=== PATIENT | female | born 1990 | race Caucasian/White ===

== ENCOUNTER → 2019-09-04 08:10 | Outpatient (BNVA) | payer BC, SELFPAY | PROVIDERS: Referring Provider Obstetrics & Gynecology; Visit Provider Obstetrics & Gynecology | DX: Z32.01 Encounter for pregnancy test, result positive (principal) | CPT/HCPCS: 81025 ==

== ENCOUNTER → 2019-11-01 13:51 | Outpatient (BNVA) | payer BC, SELFPAY | PROVIDERS: Visit Provider Obstetrics & Gynecology | DX: Z34.90 Encounter for supervision of normal pregnancy, unspecified, unspecified trimester (principal); Z34.81 Encounter for supervision of other normal pregnancy, first trimester; Z12.4 Encounter for screening for malignant neoplasm of cervix | CPT/HCPCS: 80053; 80307; 84315; 85027; 86592; 86762; 86803; 86850; 86900; 87077; 87086; 87186; 87340; 87491; 87591; 87806; 88175 ==

== ENCOUNTER → 2019-12-03 13:24 | Outpatient (BNVA) | payer BC, SELFPAY | PROVIDERS: Visit Provider Nurse Practitioner Women's Health | DX: O09.292 Supervision of pregnancy with other poor reproductive or obstetric history, second trimester (principal) | CPT/HCPCS: 80053; 82950; 84315 ==

== ENCOUNTER → 2019-12-26 15:38 | Outpatient (BNVA) | payer BC, SELFPAY | PROVIDERS: Visit Provider Obstetrics & Gynecology | DX: O36.62X0 Maternal care for excessive fetal growth, second trimester, not applicable or unspecified (principal); Z3A.28 28 weeks gestation of pregnancy | CPT/HCPCS: 76805 ==

== ENCOUNTER → 2020-01-29 14:42 | Outpatient (BNVA) | payer MEDICAID, SELFPAY | PROVIDERS: Visit Provider Obstetrics & Gynecology | DX: Z34.90 Encounter for supervision of normal pregnancy, unspecified, unspecified trimester (principal) | CPT/HCPCS: 81000 ==

== ENCOUNTER → 2020-02-21 09:10 | Outpatient (BNVA) | payer MEDICAID, SELFPAY | PROVIDERS: Visit Provider Nurse Practitioner Women's Health | DX: O09.892 Supervision of other high risk pregnancies, second trimester (principal); O99.321 Drug use complicating pregnancy, first trimester; O99.89 Other specified diseases and conditions complicating pregnancy, childbirth and the puerperium; M54.9 Dorsalgia, unspecified; O99.342 Other mental disorders complicating pregnancy, second trimester; O26.899 Other specified pregnancy related conditions, unspecified trimester; Z67.91 Unspecified blood type, Rh negative | CPT/HCPCS: 80307; 81000; 82950; 85027; 86850 ==

== ENCOUNTER → 2020-03-05 10:42 | Outpatient (BNVA) | payer MEDICAID, SELFPAY | PROVIDERS: Visit Provider Obstetrics & Gynecology | DX: O09.892 Supervision of other high risk pregnancies, second trimester (principal) | CPT/HCPCS: 81000 ==

== ENCOUNTER → 2020-03-13 14:55 | Outpatient (BNVA) | payer MEDICAID, SELFPAY | PROVIDERS: Visit Provider Obstetrics & Gynecology | DX: O09.893 Supervision of other high risk pregnancies, third trimester (principal) | CPT/HCPCS: 81000 ==

== ENCOUNTER → 2020-03-20 07:53 | Outpatient (BNVA) | payer MEDICAID, SELFPAY | PROVIDERS: Visit Provider Obstetrics & Gynecology | DX: O09.893 Supervision of other high risk pregnancies, third trimester (principal); O24.414 Gestational diabetes mellitus in pregnancy, insulin controlled | CPT/HCPCS: 81000 ==

== ENCOUNTER 2020-03-27 10:40 | Outpatient (CLI) | payer MEDICAID, SELFPAY ==
[2020-03-27 10:40] VITALS: BMI 27.1
[2020-03-27 11:09] VITALS: RESP 16; TEMP 36.7
[2020-03-27 11:28] VITALS: BP 110/68; PULSE 78; RESP 16; TEMP 36.6
[2020-03-27 11:29] VITALS: BP 110/68; PULSE 78
--- NOTE | 2020-03-31 15:54 | P.PCN_ITS ---
NST (Non-Stress Test) NST : 3 Para: 1,011 Due date: 05/14/20 Gestational age (weeks): 33 Indications: Insulin controlled gestational diabetes in third trimester at 33- 1/7 weeks gestation Test: NST Time: 11:04 Length of test in Minutes: 25 Contractions: None Fetus Fetus 1: Baseline FHR BMP:: 135 Variability: Moderate Accelerations: Present Decelerations: None Reacticity: Reactive Interpretation/Plan Interpretation by: Jaime Ramos Comments: Reactive NST on 03/27/2020. Time Out Is a Time Out required?: No
== END 2020-03-27 11:29 | disposition home or self-care (01) ==
LOC: OPOB 10:46 → OBGYN 10:47
PROVIDERS: Visit Provider Obstetrics & Gynecology
DX: O24.419 Gestational diabetes mellitus in pregnancy, unspecified control (principal); Z3A.00 Weeks of gestation of pregnancy not specified
CPT/HCPCS: 12345; 59025; 81000

== ENCOUNTER 2020-04-02 17:23 | Outpatient (CLI) | payer MEDICAID, SELFPAY ==
[2020-04-02 17:28] VITALS: BP 98/72; PULSE 91
[2020-04-02 17:30] VITALS: BMI 26.9
[2020-04-02 17:35] VITALS: RESP 18; TEMP 36.7
[2020-04-02 17:45] VITALS: BP 108/64; PULSE 83
[2020-04-02 18:00] VITALS: BP 95/54; PULSE 80
--- NOTE | 2020-04-04 20:49 | PM.ACPR ---
NST (Non-Stress Test) NST : 3 Para: 1,011 Due date: 05/14/20 Gestational age (weeks): 34 Indications: Insulin requiring gestational diabetes in third trimester at 34-0/7 weeks gestation Test: NST Time: 17:29 Length of test in Minutes: 37 Contractions: None Fetus Fetus 1: Baseline FHR BMP:: 130 Variability: Moderate Accelerations: Present Decelerations: None Reacticity: Reactive Interpretation/Plan Interpretation by: Jaime Ramos Comments: Reactive NST. Time Out Is a Time Out required?: No
== END 2020-04-02 18:09 | disposition home or self-care (01) ==
LOC: OPOB 17:23 → OBGYN 17:24
PROVIDERS: Visit Provider Obstetrics & Gynecology
DX: O26.899 Other specified pregnancy related conditions, unspecified trimester (principal); Z3A.00 Weeks of gestation of pregnancy not specified
CPT/HCPCS: 12345; 59025; 80053; 84315; 85025; 87077; 87086; 87186

== ENCOUNTER 2020-04-10 14:52 | Outpatient (CLI) | payer MEDICAID, SELFPAY ==
[2020-04-10 15:03] VITALS: BP 0/0
[2020-04-10 15:04] VITALS: BP 96/67; PULSE 83
[2020-04-10 15:06] VITALS: BMI 27.1
[2020-04-10 15:19] VITALS: BP 116/65; PULSE 69
[2020-04-10 15:25] VITALS: RESP 18; TEMP 37.1
[2020-04-10 15:34] VITALS: BP 113/70; PULSE 66
--- NOTE | 2020-04-14 19:27 | PM.ACPR ---
NST (Non-Stress Test) NST : 3 Para: 1,011 Due date: 05/14/20 Gestational age (weeks): 35 (35-1/7) Indications: Insulin controlled gestational diabetes in third trimester Test: NST Time: 15:04 Length of test in Minutes: 34 Contractions: Occasional Fetus Fetus 1: Baseline FHR BMP:: 130 Variability: Moderate Accelerations: Present Decelerations: None Reacticity: Reactive Interpretation/Plan Interpretation by: Jaime Ramos Comments: Reactive NST. Occasional contractions present. Time Out Is a Time Out required?: No
== END 2020-04-10 15:39 | disposition home or self-care (01) ==
LOC: OPOB 14:58 → OBGYN 14:59
PROVIDERS: Visit Provider Obstetrics & Gynecology
DX: O24.419 Gestational diabetes mellitus in pregnancy, unspecified control (principal); Z3A.00 Weeks of gestation of pregnancy not specified
CPT/HCPCS: 12345; 59025; 81000; 99211

== ENCOUNTER 2020-04-20 12:55 | Outpatient (CLI) | payer MEDICAID, SELFPAY ==
[2020-04-20 13:10] VITALS: RESP 18; TEMP 36.9; BMI 28.6
[2020-04-20 13:13] VITALS: BP 111/80; PULSE 83
[2020-04-20 13:27] VITALS: BP 113/69; PULSE 76
--- NOTE | 2020-04-21 17:28 | PM.ACPR ---
NST (Non-Stress Test) NST : 3 Para: 1,011 Due date: 05/14/20 Gestational age (weeks): 36 Indications: Insulin requiring gestational diabetes in third trimester at 36-4/7 weeks gestation Test: NST Time: 13:10 Length of test in Minutes: 27 Contractions: Uterine irritability Fetus Fetus 1: Baseline FHR BMP:: 130 Variability: Moderate Accelerations: Present Decelerations: None Reacticity: Reactive Interpretation/Plan Interpretation by: Jaime Ramos Comments: Reactive NST with uterine irritability. Time Out Is a Time Out required?: No
== END 2020-04-20 13:38 | disposition home or self-care (01) ==
LOC: OPOB 13:11
PROVIDERS: Visit Provider Obstetrics & Gynecology
DX: O24.419 Gestational diabetes mellitus in pregnancy, unspecified control (principal); Z3A.00 Weeks of gestation of pregnancy not specified
CPT/HCPCS: 12345; 59025; 81000; 87081; 99211

== ENCOUNTER 2020-04-23 09:15 | Outpatient (CLI) | payer MEDICAID, SELFPAY ==
[2020-04-23 09:28] VITALS: RESP 16; TEMP 36.6
[2020-04-23 09:30] VITALS: BMI 27.8
--- NOTE | 2020-04-26 09:28 | PM.ACPR ---
NST (Non-Stress Test) NST : 3 Para: 1,011 Due date: 04/23/20 Gestational age (weeks): 37 Indications: Insulin requiring gestational diabetes complicating in third trimester at 37-0/7 weeks gestation Test: NST Time: 09:25 Length of test in Minutes: 24 Contractions: Irregular Fetus Fetus 1: Baseline FHR BMP:: 135 Variability: Moderate Accelerations: Present Decelerations: None Reacticity: Reactive Interpretation/Plan Interpretation by: Jaime Ramos Comments: Reactive NST with irregular contractions. Time Out Is a Time Out required?: No
== END 2020-04-23 09:50 | disposition home or self-care (01) ==
LOC: OPOB 09:24
PROVIDERS: Visit Provider Obstetrics & Gynecology
DX: O24.414 Gestational diabetes mellitus in pregnancy, insulin controlled (principal); Z3A.37 37 weeks gestation of pregnancy
CPT/HCPCS: 12345; 59025; 99211

== ENCOUNTER 2020-04-27 10:50 | Outpatient (CLI) | payer MEDICAID, SELFPAY ==
[2020-04-27 10:57] VITALS: RESP 16; TEMP 36
--- NOTE | 2020-04-27 11:00 | PM.ACPR ---
NST (Non-Stress Test) NST : 3 Para: 1,011 Due date: 05/14/20 Gestational age (weeks): 37 Indications: Insulin requiring gestational diabetes in third trimester at 37-4/7 weeks gestation Test: NST Time: 11:00 Length of test in Minutes: 40 Contractions: Irritability Fetus Fetus 1: Baseline FHR BMP:: 135 Variability: Moderate Accelerations: Present Decelerations: None Reacticity: Reactive Interpretation/Plan Interpretation by: Jaime Ramos Comments: Reactive NST with uterine irritability present Time Out Is a Time Out required?: No
[2020-04-27 11:03] VITALS: BMI 27.6
[2020-04-27 11:04] VITALS: BP 100/69; PULSE 88
== END 2020-04-27 11:40 | disposition home or self-care (01) ==
LOC: OPOB 10:56 → OBGYN 10:56
PROVIDERS: Visit Provider Obstetrics & Gynecology
DX: O26.899 Other specified pregnancy related conditions, unspecified trimester (principal); Z3A.00 Weeks of gestation of pregnancy not specified
CPT/HCPCS: 12345; 59025; 81000

== ENCOUNTER 2020-04-30 14:22 | Outpatient (CLI) | payer MEDICAID, SELFPAY ==
--- NOTE | 2020-04-30 14:40 | PM.ACPR ---
NST (Non-Stress Test) NST : 3 Para: 1,011 Due date: 05/14/20 Gestational age (weeks): 38 Indications: Insulin controlled gestational diabetes in third trimester at 38 weeks gestation Test: NST Time: 14:42 Length of test in Minutes: 32 Contractions: Irregular Fetus Fetus 1: Baseline FHR BMP:: 130 Variability: Moderate Accelerations: Present Decelerations: None Reacticity: Reactive Interpretation/Plan Interpretation by: Jaime Ramos Comments: Reactive NST with irregular contractions Time Out Is a Time Out required?: No
[2020-04-30 15:03] VITALS: BP 112/74; PULSE 88
[2020-04-30 15:18] VITALS: BMI 27.6
== END 2020-04-30 15:15 | disposition home or self-care (01) ==
LOC: OPOB 14:31 → OBGYN 14:33
PROVIDERS: Visit Provider Obstetrics & Gynecology
DX: O24.419 Gestational diabetes mellitus in pregnancy, unspecified control (principal); Z3A.00 Weeks of gestation of pregnancy not specified
CPT/HCPCS: 12345; 59025

== ENCOUNTER 2020-05-03 02:56 | Inpatient (IN) | payer MEDICAID, SELFPAY ==
[2020-05-03] VITALS (23 sets, daily range): BP systolic 0–144; BP diastolic 0–86; PULSE 52–85; RESP 16–17; TEMP 36.4–36.7; O2SAT 96–100
[2020-05-03] MEDS: lactated ringers 1,000 ML 999 ML IV (03:32)
[2020-05-03 03:33] LABS: Basophils % 0.3 %; Eosinophils # 0.1 10^3/uL (0.0-0.8); Eosinophils % 1.2 %; Hematocrit 36.1 % (37.0-47.0); Lymphocytes # 1.5 10^3/uL (0.8-4.8); Lymphocytes % 20.7 %; Mean Corpuscular HGB Conc 33.2 g/dL (30.0-36.0); Mean Corpuscular Hemoglobin 32.4 pg (28.0-34.0); Mean Corpuscular Volume 97.6 fL (81-99); Mean Platelet Volume 12.6 fL (7.4-10.4); Monocytes # 0.5 10^3/uL (0.2-0.9); Monocytes % 6.5 %; Neutrophils % 71.2 %; Nucleated Red Blood Cells % 0 %; Platelet Count 131 10^3/cmm (130-400); Red Cell Distribution Width 12.9 % (12.1-15.1); White Blood Count 7.4 10^3/uL (4.0-10.0)
[2020-05-03 03:44] LABS: Amphetamines Screen Urine Negative (Negative); Barbiturates Screen Urine Negative (Negative); Benzodiazepines Screen Urine Negative (Negative); Cocaine Screen Urine Negative (Negative); Opiate Screen Urine Negative (Negative); PCP Screen Urine Negative (Negative); THC Screen Urine Negative (Negative)
--- NOTE | 2020-05-03 04:05 | P.PCNOB_ITS ---
Delivery Note: Date of delivery: May 03, 2020 Pre-delivery diagnoses: term . Gestational diabetes. Post-delivery diagnoses: same as above Op report anesthesia: None Delivering Physician: Delroy Cannon M.D. Estimated blood loss (mL): 300 Findings: term male infant, Apgars 8/9 Pre-Delivery Course: The patient is a 30 year old, 3, Para 1-0-1-1 with a LMP of 08/08/2019 and an EDC of 05/14/2020 based on LMP and consistent with 20 week ultrasound, which places her at 38 3/7 weeks gestation who [place] [facility]. She has been experiencing painful uterine contractions for the past 3 hours. The contractions are occurring at 3 minute intervals with approximately 45 second duration. She continues to feel movement between the contractions. She denies vaginal bleeding or rupture of membranes. CC: Onset of labor at term. HPI: Received appropriate care. Daily vitamins since start a care. labs have all been normal, including negative for HIV. She was found to positive for Group B Strep from screening at 36 weeks. She has gained approximately 9 lbs throughout the . She denies a history of HTN during . Glucose tolerance screening for gestational diabetes was positive and was diagnosed with gestational diabetes. Delivery: The patient was noted to be complete and pushing, so was placed in the dorsal lithotomy position, prepped and draped in the usual sterile fashion for a vaginal delivery. Pt. Noted to have epidural anesthesia. At [] the patient delivered a viable term male weighing 3035 g with scores of 8 and 9 at one and five minutes, respectively. The vertex was delivered spontaneously over intact perineum. The patient was asked to push and the head delivered spontaneously in the ERIC position, over an intact perineum. A nuchal cord was checked and none noted. The anterior shoulder delivered easily and the posterior shoulder followed. The remainder of the infant was easily delivered and the oropharynx and nasopharynx was bulb suctioned. The infant was noted to have spontaneous cry and spontaneous movement of all four extremities. The cord was clamped x 2 and cut and noted to have 2 arteries and one vein. The was passed to the mother's abdomen where nursing personnel were in attendance. Cord blood sample was then obtained. The placenta delivered intact spontaneously and the uterus was explored. 20 units of Pitocin was placed in the IV bag to firm the uterus. Examination of the cervix and vaginal vault did not reveal any lacerations. A vaginal pack was then placed. Examination of the perineum showed no lacerations. The vaginal pack was then removed. The patient tolerated this procedure well, and recovered in L&D with her at the OB ma. All sponge and needle counts were correct. Post-Delivery Status: unstable A&P Assessment and plan (1) Tobacco use during : Status: Acute Qualifiers: Trimester: first trimester Qualified Code(s): O99.331 - Smoking (tobacco) complicating , first trimester (2) Mental disorder affecting : Status: Acute Qualifiers: Trimester: third trimester Qualified Code(s): O99.343 - Other mental disorders complicating , third trimester (3) High risk due to maternal drug abuse: Status: Acute (4) Diabetes in : Status: Acute Qualifiers: Diabetes in type: gestational Gestational diabetes mellitus control: insulin-controlled Trimester: third trimester Qualified Code(s): O24.414 - Gestational diabetes mellitus in , insulin controlled Coding Level of Care Code Acute Animal Attendants And Trainers for Ch Fwd Diagnoses High risk due to maternal drug abuse O99.320; F19.10 Diabetes in O24.414 Diabetes in type: gestational Gestational diabetes mellitus control: insulin-controlled Trimester: third trimester Tobacco use during O99.331 Trimester: first trimester Mental disorder affecting O99.343 Trimester: third trimester
[2020-05-03] MEDS: dextrose 5%-lactated ringers 1,000 ML 125 ML IV (04:12)
[2020-05-03] MEDS: acetaminophen 325 mg Tablet 650 MG PO (06:36)
[2020-05-03] MEDS: benzocaine-menthol 78 gm Canister 1 SPRAY TOPICAL (06:37)
[2020-05-03] MEDS: lanolin oint 7 gm 1 APPLIC TOPICAL (06:37)
--- NOTE | 2020-05-03 07:02 | PC.NURSE ---
Admission of marijuana use during and mother reports relinquishing custody of 11 year old daughter to mother's parents when child was 2 or 3 years old.
[2020-05-03] MEDS: prenatal vitamin Capsule 1 CAP PO (09:38)
[2020-05-03] MEDS: docusate sodium 100 mg Capsule PO ×2 (09:38→18:14)
[2020-05-03] MEDS: ibuprofen 800 mg tablet PO ×3 (09:38→21:47)
--- NOTE | 2020-05-03 09:50 | DCPLANNER ---
Phoned the floor and asked Pt. Care Nurse; Shameka if pt will have d/c need. She denies this, states that [facility] will need to see her but nothing from us.
--- NOTE | 2020-05-03 11:54 | PM.PN ---
Subjective Subjective: Interval history: 30 year old, 3, Para 1-0-1-1 with a LMP of 08/08/2019 and an EDC of 05/14/2020 based on LMP and consistent with 20 week ultrasound. Status post spontaneous vaginal delivery. refers feeling fine Vitals/I&O/Wt Last Vital Signs Temp 97.9 F 05/03/20 10:00 Pulse 68 05/03/20 10:00 Resp 17 05/03/20 10:00 BP 119/75 05/03/20 10:00 Pulse Ox 99 05/03/20 10:00 05/02/20 05/03/20 05/03/20 22:59 06:59 14:59 Output Total 100 / 100 Balance -100 / -100 Weight last 48 hrs Weight 81.647 kg Weight 180 g Physical Exam Narrative: EXAM NARRATIVE: GA; alert and oriented x 3 HEENT: normal Breasts: engorged Nipples - skin intact Lungs; clear to auscultation Heart: regular rhythm, no murmurs. Abd: Appropriately tender. BS+. Uterine fundus below umbilicus. No Fundal Tenderness. Perineum: normal lochia. Extremities: no edema, no cyanosis, no tenderness. Data : 05/03/20 03:00 A&P Assessment and plan (1) Term delivered: She was status post spontaneous vaginal delivery without complications. he refers she had signed a consent for tubal ligation/permanent sterilization. However because she have not been COVID tested, the hospital did not authorize the elective procedure at this time because of the policy of no elective procedures without being tested for COVID prior to the procedure. She is afebrile hemodynamically stable. Tolerating diet well. Ambulating without difficulty. Plan: Anticipate discharging home tomorrow. Status: Acute Attestations Medical Necessity Statement*: my professional opinion per admitting diagnosis Coding Level of Care Code Acute Air Pollution Inspector for Chg Fwd Diagnoses Term delivered O80
[2020-05-03 16:21] LABS: Hematocrit 34.2 % (37.0-47.0); Hemoglobin 11.2 g/dL (11.5-15.3); Mean Corpuscular HGB Conc 32.7 g/dL (30.0-36.0); Mean Corpuscular Hemoglobin 32.1 pg (28.0-34.0); Mean Platelet Volume 12.4 fL (7.4-10.4); Platelet Count 144 10^3/cmm (130-400); Red Blood Count 3.49 10^6/uL (4.1-5.3)
[2020-05-04] MEDS: prenatal vitamin Capsule 1 CAP PO (08:05)
[2020-05-04] MEDS: docusate sodium 100 mg Capsule PO (08:05)
[2020-05-04] MEDS: ibuprofen 800 mg tablet PO ×2 (08:05→14:03)
[2020-05-04 09:09] VITALS: BP 107/66; PULSE 69; RESP 15; TEMP 36.8
--- NOTE | 2020-05-04 12:45 | P.DS_ITS ---
Discharge Providers BEAN ROASTER Date of Admission: 05/03/20 02:56 Date of Discharge: 05/04/20 Attending Provider at Admission: Delroy Cannon MD Attending Provider at Discharge: Delroy Cannon MD Diagnoses at Discharge Discharge Diagnosis (1) High risk due to maternal drug abuse: Status: Acute (2) Diabetes in : Status: Acute Qualifiers: Diabetes in type: gestational Gestational diabetes mellitus control: insulin-controlled Trimester: third trimester Qualified Code(s): O24.414 - Gestational diabetes mellitus in , insulin controlled (3) Tobacco use during : Status: Acute Qualifiers: Trimester: first trimester Qualified Code(s): O99.331 - Smoking (tobacco) complicating , first trimester (4) Mental disorder affecting : Status: Acute Qualifiers: Trimester: third trimester Qualified Code(s): O99.343 - Other mental disorders complicating , third trimester Reason for Visit Reason for Visit: Contractions Hospital Course Hospital Course The patient is a 30 year old, 3, Para 1-0-1-1 with a LMP of 08/08/2019 and an EDC of 05/14/2020 based on LMP and consistent with 20 week ultrasound, which places her at 38 3/7 weeks gestation who has [place] receiving [place] [facility] [place] [facility]. She has been experiencing painful uterine contractions for the past 3 hours. The contractions are occurring at 3 minute intervals with approximately 45 second duration. She continues to feel movement between the contractions. She denies vaginal bleeding or rupture of membranes. CC: Onset of labor at term. HPI: Received appropriate care. Daily vitamins since start a care. labs have all been normal, including negative for HIV. She was found to positive for Group B Strep from screening at 36 weeks. She has gained approximately 9 lbs throughout the . She denies a history of HTN during . Glucose tolerance screening for gestational diabetes was positive and was diagnosed with gestational diabetes. She had a rapid progression of labor to have a spontaneous vaginal delivery without complications. she delivered term male infant with a weight at 3035g and APGARS 8/9. recovery has been uneventful. She is afebrile hemodynamically stable. Tolerating diet well. Ambulating without difficulty. Will decide method of contraception to use at the 6 week visit. Information Peripartum Data: Delivery Method: Vaginal Physical Exam Narrative: EXAM NARRATIVE: GA; alert and oriented x 3 HEENT: normal Breasts: engorged Nipples - skin intact Lungs; clear to auscultation Heart: regular rhythm, no murmurs. Abd: Appropriately tender. BS+. Uterine fundus below umbilicus. No Fundal Tenderness. Perineum: normal lochia. Extremities: no edema, no cyanosis, no tenderness. Discharge Data Data Completed and Pending: Labs from last 24 hours 05/03/20 05/03/20 13:45 13:45 WBC 8.0 RBC 3.49 L Hgb 11.2 L Hct 34.2 L MCV 98.0 MCH 32.1 MCHC 32.7 RDW 13.0 Plt Count 144 MPV 12.4 H Blood Type O Positive Rho(D) Type Positive Antibody Screen Negative Vitals: Last Vital Signs Temp 98.3 F 05/04/20 09:09 Pulse 69 05/04/20 09:09 Resp 15 05/04/20 09:09 BP 107/66 05/04/20 09:09 Pulse Ox 98 05/03/20 21:55 Discharge Plan Discharge Patient Disposition: Home Condition: Stable Prescriptions: New acetaminophen 325 mg capsule 325 mg PO Q4H PRN (Reason: fever or pain) Qty: 60 RF: 0 ibuprofen 800 mg tablet 800 mg PO TID PRN (Reason: pain) Qty: 60 RF: 0 Continued DHA 200 mg capsule 200 mg PO DAILY RF: 0 Intrinsi W57-Rceolm 500-20-800 mcg-mg-mcg tablet See Rx Instructions PO .COMPLEX RF: 0 Levemir U-100 Insulin 100 unit/mL solution 10 unit SUBCUT DAILY Qty: 10 RF: 3 (DME) insulin syringes (disposable) 1 mL syringe See Rx Instructions .ROUTE .MEDSUPPLY Qty: 500 RF: 3 Latuda 20 mg tablet 20 mg PO DAILY Qty: 30 RF: 4 ferrous sulfate 325 mg (65 mg iron) tablet 325 mg PO BID Qty: 60 RF: 2 (DME) blood-glucose meter [Blood Glucose Monitoring] Kit See Rx Instructions .ROUTE .MEDSUPPLY Qty: 1 RF: 6 Discharge Orders: Discharge Order (Routine); Ordered 05/04/20 Ordered By: Delroy Cannon Referrals: Delroy Cannon MD [Physician] - 2 weeks Discharge Diet: As Directed Discharge Activity: Increase activity as tolerated Patient Instructions: How to Stop Smoking (DC), Cigarette Smoking and Your Health (GEN), Vaginal Delivery (DC), Vaginal Delivery (GEN), Secondhand Smoke Exposure in Children (GEN) Activity Restrictions/Additional Instructions: 1. Please call [facility] on next working day to make your post-operative appointment in 2 weeks. 2. Please stay home until you come back to the clinic on first post-operative check up. 3. Please follow instructions on your medications CAREFULLY. 4. If you have abdominal incision, do not cover it unless dressing is necessary because of drainage. OK to shower, but avoid bath. Leave steri-strips until they fall off. If they are still on one week after surgery, you may remove them. 5. If you had vaginal surgery, your doctor may instuct you to take SITZ bath. 6. Yellow, blood tinged odorous vaginal discharge is usually normal after hysterectomy or vaginal surgeries. 7. No sexual intercourse, tampons, or douches until you are completely released from the post-operative care. 8. Avoid constipation by eating right and maybe using some Metamucil or Milk of Magnesia. 9. All presciption refills are given during the working hours. Please do no wait till it runs out. Call the clinic at [phone] before your medication runs out. The clinic will get in touch with your doctor to prescribe medications if necessary. 10. Please remain within 40 mile radius from our hospital because emergencies do happen now and then during the post-operative period. 11. If you have stairs at home, take one step at a time slowly and minimize the number of trips. It helps to stay in one floor for the next few days. No lifting except what you can lift by one hand until you are released from the post-operative care. 12. Driving is discouraged until you are well healed. It may be 3-4 weeks before you feel strong enough to drive. You should be able to turn and look throught the rear window without pain and you should be able to push the brake pedal very hard without pain before you drive. No fast rules, but SAFETY should be your primary concern. DO NOT drive if you are on sedating medications such as narcotics. 13. Call the clinic (during working hours) to make urgent appointment or go to the Emergency room, if any of the following occurs: i. Vaginal bleeding becomes heavy, more than a period. ii. Incision becomes red and sore, or drains pus. iii. Your temperature is over 100.4 or you have chill. iv. IV site becomes red and swollen (a little ``knot?? is usually OK) v. Persistent nausea and vomiting vi. Persistent constipation or diarrhea vii. Rash or allergic reaction to medications. Discharge Attestations BEAN ROASTER Time Spent in Discharge Care*: greater than 30 min Specific Discharge Activities: Specific discharge activities: educating patient Time Spent in Smoking Cessation: Time spent discussing smoking cessation with patient: more than 10 minutes Coding Level of Care Code Acute Hadoop Administrator for [facility] Fwd Diagnoses High risk due to maternal drug abuse O99.320; F19.10 Diabetes in O24.414 Diabetes in type: gestational Gestational diabetes mellitus control: insulin-controlled Trimester: third trimester Tobacco use during O99.331 Trimester: first trimester Mental disorder affecting O99.343 Trimester: third trimester
[2020-05-04 13:40] VITALS: BP 134/77; PULSE 69; RESP 15; TEMP 36.9
[2020-05-04 13:51] VITALS: BP 134/77; PULSE 69; RESP 15; TEMP 36.9
--- NOTE | 2020-05-04 17:57 | PC.RESP ---
Smoking Cessation information sent to patient.
== END 2020-05-04 14:15 | disposition home or self-care (01) | DRG 807 ==
LOC: OPOB 04:06 → OBGYN 04:06
PROVIDERS: Admitting Provider Obstetrics & Gynecology; Visit Provider Obstetrics & Gynecology
DX: O24.414 Gestational diabetes mellitus in pregnancy, insulin controlled (principal); Z37.0 Single live birth; O99.343 Other mental disorders complicating pregnancy, third trimester; O99.334 Smoking (tobacco) complicating childbirth; F17.210 Nicotine dependence, cigarettes, uncomplicated; Z3A.38 38 weeks gestation of pregnancy; O99.824 Streptococcus B carrier state complicating childbirth
CPT/HCPCS: 12345; 36415; 59409; 80306; 85025; 85027; 86850; 86900; 90686; 99211

== ENCOUNTER 2020-05-10 16:06 | Inpatient (IN) | payer MEDICAID, SELFPAY ==
[2020-05-10] VITALS (8 sets, daily range): BP systolic 90–111; BP diastolic 59–70; PULSE 129–136; RESP 17–36; TEMP 36.4–36.7; O2SAT 97–100; BMI 26.6
--- NOTE | 2020-05-10 16:20 | ECG_ITS ---
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 Measurements Intervals [place] Rate: 123 P: 28 SD: 104 QRS: 12 QRSD: 81 T: 54 QT: 299 QTc: 429 Interpretive Statements SINUS TACHYCARDIA WITH SHORT SD INTERVAL ABNORMAL RHYTHM ECG No previous ECG available for comparison Electronically Signed On 05-10-2020 21:15:39 TRUST EVALUATION SUPERVISOR by Mohamud Jean M.D. [id number]
--- NOTE | 2020-05-10 16:30 | USR_ITS ---
PROCEDURE INFORMATION: Exam: US Nonobstetric Pelvis; Complete Exam date and time: 05/10/2020 4:46 PM Age: 30 years old Clinical indication: Abdominal pain and pelvic pain; Right lower quadrant; Additional info: Post bleeding, pain TECHNIQUE: Imaging protocol: Transabdominal pelvic nonobstetric ultrasound. Complete exam. Real time ultrasound with image documentation. COMPARISON: US OB [facility] 04/30/2020 1:54 PM FINDINGS: Uterus/cervix: Uterus is enlarged measuring 16.4 x 7.7 x 8.6 cm. This is not unusual for patient 1 week . Endometrium measures 8 mm in thickness and is unremarkable. Right adnexa: Right ovary is not visualized on this examination. Left adnexa: Left ovary is not visualized on this examination. Bowel: Patient directed scanning over the right lower quadrant where the patient describes her pain did not reveal any specific abnormality. Incidental note is made of multiple gallstones in the gallbladder with thickened gallbladder wall. Intraperitoneal space: No free fluid is identified. Urinary bladder: Normal. US/US pelvic complete* [id number] IMPRESSION: 1. Cholelithiasis and possible cholecystitis. 2. Unremarkable pelvis. 3. No specific finding is seen in the right lower quadrant.
[2020-05-10] MEDS: sodium chloride 0.9% 1,000 ML 999 ML IV ×2 (16:40→19:51)
[2020-05-10] MEDS: ondansetron 2 mg/ML SDV 2 mL 4 MG IVP (16:41)
[2020-05-10] MEDS: morphine 4 mg/mL SDV 1 mL IVP ×2 (16:44→19:51)
--- NOTE | 2020-05-10 16:51 | W.ED.FEMALGU ---
HPI - Female Genitourinary General: Chief complaint: Vaginal Bleeding Stated complaint: pain post vaginal deliver, n/v Time Seen by Provider: 05/10/20 16:18 History of Present Illness: HPI Narrative: This patient is a 30-year-old female who presents with abdominal pain. She is with a normal spontaneous vaginal delivery 7 days ago. She had been having vaginal bleeding of about 4-5 pads per day until yesterday. Today she only had about 2 pads. Last night she started developing abdominal pain and bloating. Today she is extremely uncomfortable and has marked swelling of her abdomen. She denies vomiting. She had been having normal bowel movements until last night. She has not had 1 at all today. She has no problems urinating although she notes a little bit of burning due to tears from delivery. No fever. She is lightheaded and feels very weak. MD elicited complaint: vaginal bleeding, pelvic pain and other (Abdominal pain and swelling) Pertinent past history: other (7 days , breast-feeding) Onset (ago): day(s) (1) Location of symptoms: pelvis Severity: severe Female Urogenital Radiation: Non-Radiating Quality of pain: sharp Consistency: constant Vaginal bleeding: moderate Urinary symptoms: Dysuria Exacerbating factors: none Relieving factors: none Associated symptoms: Reports abdominal pain; Deny headache(s) or nausea Review of Systems General: Reports: 10 or more systems reviewed and unremarkable except in HPI and below Const: Reports: fatigue; Denies: fever(s), chills or malaise Eyes: Denies: change in vision ENMT: Denies: odynophagia Card: Denies: chest pain or swelling of feet/ankles Resp: Reports: dyspnea; Denies: productive cough or non-productive cough GI: Reports: abdominal pain and bloating; Denies: nausea or vomiting : Denies: flank pain or difficulty voiding Musc: Denies: neck pain or back pain Skin/Breast: Denies: rash Neuro: Denies: headache(s), numbness in extremities or weakness in extremities Georges/Lymph: Denies: easy bruising or easy bleeding PFSH ED PFSH: Medical History Bipolar disorder Drug use complicating Gestational diabetes History of drug abuse Term delivered Tobacco use Surgical History H/O LEEP (~2013) states she had moderate dysplasia No pertinent past surgical history Family History Grandmother Breast cancer, Onset Age: 60 MGGM Uterine cancer, Onset Age: 38 MGM Unknown No pertinent family history hypertension, high cholesterol, diabetes, thyroid or stroke Social History (Updated 05/11/20 @ 08:38 by Jaime Ramos MD) Smoking and tobacco status: current every day smoker cigarettes Packs smoked per day: 0.25 [ Other cigarette details: was smoking up to 1/2-1ppd ] and e-cigarettes E-Cigarette Details: vaporizer device E-cig/vape details: every other day Alcohol intake: never Other details last substance use: Uses marijuana to treat her stress Physical Exam Const: COMMON NORMALS: patient oriented x3, no limitations and alert GENERAL APPEARANCE: cooperative and in distress HENMT: HEAD & SCALP: normal to inspection FACE & SINUS: normal facial exam Eye: GENERAL EYE: appearance normal, both eyes and all related structures Neck/C-Spine: COMMON NORMALS: supple, no meningeal signs and no JVD Chest: COMMONS NORMALS: normal inspection of the chest Resp: COMMON NORMALS: normal respiratory effort, No use of accessory muscles and clear to auscultation bilaterally AUSCULTATION: clear to auscultation bilaterally Cardio: COMMON NORMALS: no JVD, regular rate, regular rhythm and No murmurs present (Cardio) RATE: regular rate RHYTHM: regular rhythm GI: COMMON NORMALS: Normal to inspection, nondistended, normoactive bowel sounds present and non-tender INSPECTION: Yes normal to inspection and Yes striae PALPATION: Yes Tenderness to palpation present (GI) (Diffuse) Back/Pelvis: COMMON NORMALS: thoracic and lumbar spine normal to inspection Extremity: COMMON NORMALS: normal to inspection Neuro: COMMON NORMALS: patient oriented x3, moves all extremities, no focal motor deficits and no sensory deficits noted SENSORIUM/ORIENTATION: Yes alert MENINGEAL SIGNS: Yes no meningeal signs Psych: COMMON NORMALS: mental status grossly normal, cooperative and normal affect Skin: COMMON NORMALS: no rashes or lesions noted and turgor normal GENERAL SKIN EXAM: no rashes or lesions noted and turgor normal Course ED course: Hemoglobin is fine at 10. She had a normal pelvic ultrasound. Her right upper quadrant ultrasound shows gallstones and gallbladder wall thickening as well as some pericholecystic fluid. Common bile duct appears normal. LFTs are normal. Her white count was 12.5. She had improvement with pain medicine. After fluids her heart rate improved somewhat. Her blood pressure is also better at about 110 systolic. Lactate was 2.0. I spoke with Dr. Roque who agreed to admit her to the hospital. He requested a consult from the hospitalist due to her urinary tract infection. He also requested a consult from Dr. Ramos. I spoke to Dr. Ramos and went over the test results. Dr. Ramos did not feel like he needed to do an official consult as he did not feel like there was anything that he needed to add to her work-up. Dr. Roque called back and requested that the hospitalist admit the patient and he is a consult. I will discuss this with Dr. Cruz and let them decide between the 2 of them who will be the admitting. Vital Signs: Vital signs: Vital Signs Temperature 101.7 F H 05/13/20 01:07 Pulse Rate 120 H 05/13/20 00:05 Respiratory Rate 26 H 05/13/20 00:57 Blood Pressure 114/69 05/13/20 00:05 Pulse Oximetry 96 05/13/20 00:57 MDM - Female Lab Data: Labs: Lab Results 05/10/20 05/10/20 05/10/20 Range/Units 16:30 16:30 17:33 WBC Cancelled Corrected WBC Cancelled RBC Cancelled Hgb Cancelled Hct Cancelled MCV Cancelled MCH Cancelled MCHC Cancelled RDW Cancelled Plt Count Cancelled MPV Cancelled Gran % Cancelled Neut % (Auto) Cancelled Lymph % (Auto) Cancelled [place] % (Auto) Cancelled Eos % (Auto) Cancelled Baso % (Auto) Cancelled Neut # (Auto) Cancelled Lymph # (Auto) Cancelled [place] # (Auto) Cancelled Eos # (Auto) Cancelled Baso # (Auto) Cancelled Absolute Gran (aut o) Cancelled Nucleated RBC % (a uto) Cancelled Nucleated RBCs # Cancelled D-Dimer (0-0.59) ug/mIFE U Sodium Cancelled Potassium Cancelled Chloride Cancelled Carbon Dioxide Cancelled Anion Gap Cancelled BUN Cancelled Creatinine Cancelled GFR Calculation Cancelled Glucose Cancelled Calculated Osmolal ity Cancelled Lactic Acid 2.0 (0.5-2.2) mmol/L Calcium Cancelled Total Bilirubin Cancelled AST Cancelled ALT Cancelled Alkaline Phosphata se Cancelled Total Protein Cancelled Albumin Cancelled Globulin Cancelled Urine Color (Yellow) Urine Appearance (CLEAR) Urine pH (5-7) Ur Specific Gravit y (1.005-1.030) Urine Protein (Negative) Urine Glucose (UA) (Normal) Urine Ketones (Negative) Urine Blood (Negative) Urine Nitrate (Negative) Urine Bilirubin (Negative) Urine Urobilinogen (Negative) mg/dL Ur Leukocyte Rosalind ase (Negative) Urine RBC (0-2) /hpf Urine WBC (0-5) /hpf Ur Squamous Epith Cells (0-5) /hpf Amorphous Sediment Urine Bacteria (NONE) /hpf 05/10/20 05/10/20 05/10/20 Range/Units 17:43 18:07 18:07 WBC 12.5 H Corrected WBC RBC 3.27 L Hgb 10.5 L Hct 32.2 L MCV 98.5 MCH 32.1 MCHC 32.6 RDW 13.4 Plt Count 143 MPV 11.4 H Gran % Neut % (Auto) 93.0 Lymph % (Auto) 2.7 [place] % (Auto) 2.2 Eos % (Auto) 0.2 Baso % (Auto) 0.9 Neut # (Auto) 11.60 H Lymph # (Auto) 0.3 L [place] # (Auto) 0.3 Eos # (Auto) 0.0 Baso # (Auto) 0.1 Absolute Gran (aut o) Nucleated RBC % (a uto) 0 Nucleated RBCs # 0.0 D-Dimer (0-0.59) ug/mIFE U Sodium 139 Potassium 3.8 Chloride 105 Carbon Dioxide 21 L Anion Gap 16.8 BUN 14 Creatinine 0.7 GFR Calculation 97.6 Glucose 84 Calculated Osmolal ity 288 Lactic Acid (0.5-2.2) mmol/L Calcium 8.0 L Total Bilirubin 0.4 AST 18 ALT 24 Alkaline Phosphata se 140 H Total Protein 5.3 L Albumin 2.1 L Globulin 3.2 Urine Color Yellow (Yellow) Urine Appearance Sl hazy (CLEAR) Urine pH 5 (5-7) Ur Specific Gravit y 1.010 (1.005-1.030) Urine Protein 1+ H (Negative) Urine Glucose (UA) Norm (Normal) Urine Ketones Negative (Negative) Urine Blood 2+ H (Negative) Urine Nitrate Positive H (Negative) Urine Bilirubin 1+ H (Negative) Urine Urobilinogen 1 H (Negative) mg/dL Ur Leukocyte Rosalind ase 2+ H (Negative) Urine RBC >100 H (0-2) /hpf Urine WBC Too numerous to c nt H (0-5) /hpf Ur Squamous Epith Cells 5-10 H (0-5) /hpf Amorphous Sediment Not Reportable Urine Bacteria 4+ H (NONE) /hpf 05/10/20 Range/Units 18:07 WBC Corrected WBC RBC Hgb Hct MCV MCH MCHC RDW Plt Count MPV Gran % Neut % (Auto) Lymph % (Auto) [place] % (Auto) Eos % (Auto) Baso % (Auto) Neut # (Auto) Lymph # (Auto) [place] # (Auto) Eos # (Auto) Baso # (Auto) Absolute Gran (aut o) Nucleated RBC % (a uto) Nucleated RBCs # D-Dimer 3.93 H (0-0.59) ug/mIFE U Sodium Potassium Chloride Carbon Dioxide Anion Gap BUN Creatinine GFR Calculation Glucose Calculated Osmolal ity Lactic Acid (0.5-2.2) mmol/L Calcium Total Bilirubin AST ALT Alkaline Phosphata se Total Protein Albumin Globulin Urine Color (Yellow) Urine Appearance (CLEAR) Urine pH (5-7) Ur Specific Gravit y (1.005-1.030) Urine Protein (Negative) Urine Glucose (UA) (Normal) Urine Ketones (Negative) Urine Blood (Negative) Urine Nitrate (Negative) Urine Bilirubin (Negative) Urine Urobilinogen (Negative) mg/dL Ur Leukocyte Rosalind ase (Negative) Urine RBC (0-2) /hpf Urine WBC (0-5) /hpf Ur Squamous Epith Cells (0-5) /hpf Amorphous Sediment Urine Bacteria (NONE) /hpf Discharge Plan Discharge Patient Disposition: Admitted As Inpatient Admit Provider: Romero Roque Coding Level of Care Code ED Recharger for Chg Fwd Exam Comprehensive
--- NOTE | 2020-05-10 17:12 | USR_ITS ---
PROCEDURE INFORMATION: Exam: US Abdomen, Limited; Right Upper Quadrant Exam date and time: 05/10/2020 5:34 PM Age: 30 years old Clinical indication: Abdominal pain; Acute; Patient HX: Patient delivered 1 week ago; Additional info: Ruq pain TECHNIQUE: Imaging protocol: US abdomen. Real time ultrasound with image documentation. Limited exam focused on the right upper quadrant. COMPARISON: No relevant prior studies available. FINDINGS: Liver: Flow in the portal vein is towards the liver. Liver is normal size and shows normal uniform echogenicity. There is no focal abnormality within the liver. Gallbladder: Multiple gallstones are present. There is abnormal thickening of the gallbladder wall which measures up to 10 mm in thickness. Gallbladder appears mildly hypervascular. Common bile duct: Common bile duct measures 7 mm. Pancreas: Visualized portions of the pancreas are unremarkable. Right kidney: Right kidney is normal size with normal cortical thickness and echogenicity. There is no hydronephrosis. US/US gall bladder [id number] IMPRESSION: 1. Cholelithiasis and cholecystitis. 2. Mild dilatation of the common bile duct.
[2020-05-10 18:16] LABS: Blood Urine 2+ (Negative); Glucose Urine UA Norm (Normal); Ketones Urine Negative (Negative); Nitrate Urine Positive (Negative); Protein Urine 1+ (Negative); Urine Appearance SL Hazy (CLEAR); Urine Color Yellow (Yellow); pH Urine 5 (5-7)
[2020-05-10 18:17] LABS: Add Urine Microscopic? YES; Bilirubin Urine 1+ (Negative); Leukocyte Esterase Urine 2+ (Negative); Urobilinogen Urine 1 mg/dL (Negative)
[2020-05-10 18:20] LABS: Add Urine Culture? Yes; Bacteria Urine 4+ /hpf; RBC Urine >100 /hpf (0-2); WBC Urine TOO NUMEROUS TO CNT /hpf (0-5)
[2020-05-10 18:22] LABS: Basophils # 0.1 10^3/uL (0.0-0.1); Basophils % 0.9 %; Eosinophils % 0.2 %; Hematocrit 32.2 % (37.0-47.0); Hemoglobin 10.5 g/dL (11.5-15.3); Lymphocytes # 0.3 10^3/uL (0.8-4.8); Lymphocytes % 2.7 %; Mean Corpuscular HGB Conc 32.6 g/dL (30.0-36.0); Mean Corpuscular Hemoglobin 32.1 pg (28.0-34.0); Mean Corpuscular Volume 98.5 fL (81-99); Mean Platelet Volume 11.4 fL (7.4-10.4); Monocytes # 0.3 10^3/uL (0.2-0.9); Monocytes % 2.2 %; Nucleated Red Blood Cells % 0 %; Platelet Count 143 10^3/cmm (130-400); Red Blood Count 3.27 10^6/uL (4.1-5.3); Red Cell Distribution Width 13.4 % (12.1-15.1); White Blood Count 12.5 10^3/uL (4.0-10.0)
[2020-05-10] MEDS: piperacillin-tazobactam 3.375 GM in sodium chloride 0.9% (plus) 50 ML IV (18:27)
[2020-05-10 18:42] LABS: Alanine Aminotransferase 24 U/L (0-33); Albumin Level 2.1 g/dL (3.5-5.2); Alkaline Phosphatase 140 IU/L (35-105); Blood Urea Nitrogen 14 mg/dL (6-20); Carbon Dioxide 21 mmol/L (22-29); Chloride 105 mmol/L (98-107); Globulin 3.2 g/dL (1.3-4.6); Glomerular Filtration Rate 97.6 mL/min (90-130); Glucose 84 mg/dL (65-115); Osmolality Calculated 288 mOsm/kg (285-295); Sodium 139 mmol/L (136-145); Total Bilirubin 0.4 mg/dL (0.15-1.2); Total Protein 5.3 g/dL (6.6-8.7)
[2020-05-10 18:44] LABS: Anion Gap 16.8 (5-19); Aspartate Amino Transferase 18 U/L (0-32); Potassium 3.8 mmol/L (3.5-5.1)
--- NOTE | 2020-05-10 19:24 | PM.CONSULT ---
History of Present Illness History of Present Illness Suma Muñiz is a 30 year old female who is -0-1-1, 7 days(had gestational diabetes), positive with group B strep at 36 weeks was discharged with stable vital on 05/04 after normal vaginal delivery without complications coming in today for chief complaint of abdominal pain. Meds/Allergies Home Medications and Allergies Home Medications Medication Instructions Recorded Confirmed Last Taken Type blood-glucose meter #1 each 02/26/20 05/10/20 Unknown Rx insulin syringes (disposable) 1 mL #500 each 03/20/20 05/10/20 Unknown Rx lurasidone 20 mg tablet 20 mg PO DAILY #30 tab 04/20/20 05/10/20 05/09/20 Rx acetaminophen 325 mg PO Q4H PRN #60 cap 05/04/20 05/10/20 05/10/20 Rx ibuprofen 800 mg PO TID PRN #60 tab 05/04/20 05/10/20 05/10/20 Rx Allergies Allergy/AdvReac Type Severity Reaction Status Date / Time RED MEAT Allergy Mild ALGY-Hives Uncoded 05/04/20 07:49 PFSH Acute PFSH: Medical History Bipolar disorder Gestational diabetes History of drug abuse Tobacco use Surgical History H/O LEEP (~2013) states she had moderate dysplasia No pertinent past surgical history Family History Grandmother Breast cancer, Onset Age: 60 MGGM Uterine cancer, Onset Age: 38 MGM Unknown No pertinent family history hypertension, high cholesterol, diabetes, thyroid or stroke Social History Smoking and tobacco status: current every day smoker cigarettes Packs smoked per day: 0.25 [ Other cigarette details: was smoking up to 1/2-1ppd ] and e-cigarettes E-Cigarette Details: vaporizer device E-cig/vape details: every other day Alcohol intake: never Vitals/I&O/Wt Last Vital Signs Temp 98.0 F 05/10/20 16:09 Pulse 130 H 05/10/20 18:31 Resp 29 H 05/10/20 18:31 BP 103/70 05/10/20 18:31 Pulse Ox 98 05/10/20 18:31 Weight last 48 hrs Weight 77.111 kg Coding Level of Care Code 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
--- NOTE | 2020-05-10 19:32 | XRR_ITS ---
PROCEDURE INFORMATION: Exam: XR Chest, 1 View Exam date and time: 05/10/2020 7:49 PM Age: 30 years old Clinical indication: Pain; Other: Abdomen; Additional info: Tachycardia TECHNIQUE: Imaging protocol: XR of the chest Views: 1 view. COMPARISON: No relevant prior studies available. FINDINGS: Lungs: Unremarkable. No consolidation. Pleural space: Unremarkable. No pleural effusion. No pneumothorax. Heart/Mediastinum: Unremarkable. No cardiomegaly. Bones/joints: Unremarkable. XR/XR chest 1V portable [id number] IMPRESSION: No acute findings.
--- NOTE | 2020-05-10 19:42 | P.HP_ITS ---
Providers/Chief Complaint Admitting Physician: Romero Roque MD Chief Complaint: pain post vaginal deliver, n/v History of Present Illness Suma Muñiz is a 30 year old female who is -0-1-1, 7 days(had gestational diabetes), positive with group B strep at 36 weeks was discharged with stable vital on 05/04 after normal vaginal delivery without complications coming in today for chief complaint of abdominal pain. Patient is stating that since her vaginal delivery she has been noticing vaginal bleeding, initially she was using 7 pads a day now she is down to 2-3 pads a day, yesterday around 3 PM she started experiencing abdominal pain, she waited until today to come to the hospital until her abdominal pain got worse, she has not noticed any vomiting, she is endorsing nausea, abdominal pain, dysuria, subjecti ve fever, hot flashes. She is endorsing diaphoresis as well. No headache, blurry vision, neck pain, abdominal pain is 6/10, mostly in hypogastric region. Diagnosis in the ER revealed acute cholecystitis, sepsis, UTI, At the time my evaluation she had left-sided CVA tenderness, I would obtain CT abdomen pelvis to rule out pyelonephritis currently she is on Zosyn, n.p.o. on fluids Review of Systems Const: Reports: fever(s), chills, body aches and fatigue Eyes: Denies: change in vision ENMT: Denies: throat pain Card: Denies: chest pain Resp: Denies: dyspnea GI: Reports: abdominal pain and nausea; Denies: vomiting or diarrhea : Reports: flank pain, difficulty voiding, dysuria and vaginal bleeding Musc: Denies: neck pain Skin/Breast: Denies: rash Neuro: Denies: headache(s) Psych: Denies: anxiety Endo: Denies: polyuria Georges/Lymph: Denies: easy bruising All/Imm: Denies: urticaria Medications/Allergies Home Medications Medication Instructions Recorded Confirmed Last Taken Type blood-glucose meter #1 each 02/26/20 05/10/20 Unknown Rx insulin syringes (disposable) 1 mL #500 each 03/20/20 05/10/20 Unknown Rx lurasidone 20 mg tablet 20 mg PO DAILY #30 tab 04/20/20 05/10/20 05/09/20 Rx acetaminophen 325 mg PO Q4H PRN #60 cap 05/04/20 05/10/20 05/10/20 Rx ibuprofen 800 mg PO TID PRN #60 tab 05/04/20 05/10/20 05/10/20 Rx Allergies Allergy/AdvReac Type Severity Reaction Status Date / Time RED MEAT Allergy Mild ALGY-Hives Uncoded 05/04/20 07:49 PFSH Acute PFSH: Medical History Bipolar disorder Gestational diabetes History of drug abuse Tobacco use Surgical History H/O LEEP (~2013) states she had moderate dysplasia No pertinent past surgical history Family History Grandmother Breast cancer, Onset Age: 60 MGGM Uterine cancer, Onset Age: 38 MGM Unknown No pertinent family history hypertension, high cholesterol, diabetes, thyroid or stroke Social History Smoking and tobacco status: current every day smoker cigarettes Packs smoked per day: 0.25 [ Other cigarette details: was smoking up to 1/2-1ppd ] and e- cigarettes E-Cigarette Details: vaporizer device E-cig/vape details: every other day Alcohol intake: never Vitals/I&O/Wt Last Vital Signs Temp 98.0 F 05/10/20 16:09 Pulse 130 H 05/10/20 18:31 Resp 29 H 05/10/20 18:31 BP 103/70 05/10/20 18:31 Pulse Ox 98 05/10/20 18:31 Weight last 48 hrs Weight 77.111 kg Physical Exam Narrative: EXAM NARRATIVE: Patient appears dehydrated Facial flushing noted Appears to be in mild distress because abdominal pain Tachycardic, Left CVA tenderness positive Tender abdomen, tenderness elicited on deep palpation, mild rigidity and guarding noted Awake alert oriented x3 GCS 15 EOMI, PERRLA S1, S2 sinus tachycardia No acute respite distress Low extremity no edema gangrene or ulcer Multiple skin tattoos noted Data : 05/10/20 18:07 05/10/20 18:07 A&P Assessment and plan (1) Sepsis: Status: Acute (2) Cholecystitis: Status: Acute (3) UTI (urinary tract infection): Status: Acute Additional A&P Information Sepsis Criteria met with tachycardia, leukocytosis, source of infection cholecystitis, UTI My concern is left pyelonephritis due to clinical CVA tenderness, week [address] abdomen pelvis with contrast Currently patient is n.p.o., started on maintenance fluid and Zosyn which should cover anaerobes and gram-negative Obtained blood and urine cultures General surgery consulted Vaginal bleeding Pelvic ultrasound did not reveal any acute pathologies, hemoglobin 10.5, she was 11.2 at discharge a week ago No signs of endometritis Gestational diabetes: I will keep her on D5 half-normal saline fluid resuscitation along sliding scale, Full code N.p.o. DVT prophylaxis SCDs, will avoid anticoagulation in case she would require surgical intervention Attestations Medical Necessity Statement*: Anticipating stay in the hospital cross more than 2 midnights currently need IV antibiotics for sepsis, she will need surgical intervention, general surgery consulted Time Spent in Patient Care: (>than 50% of time spent in counselling and/or direct pt care on unit) . 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
--- NOTE | 2020-05-10 21:15 | CTR_ITS ---
PROCEDURE INFORMATION: Exam: CT Abdomen And Pelvis With Contrast Exam date and time: 05/10/2020 9:31 PM Age: 30 years old Clinical indication: Abdominal pain; Generalized; Patient HX: C/O abd pain w continued vaginal bleeding 7 days post ; Additional info: CVA tenderness left sided, sepsis TECHNIQUE: Imaging protocol: Computed tomography of the abdomen and pelvis with intravenous contrast. Radiation optimization: All CT scans at this facility use at least one of these dose optimization techniques: automated exposure control; mA and/or kV adjustment per patient size (includes targeted exams where dose is matched to clinical indication); or iterative reconstruction. Contrast material: OMNI 300; Contrast volume: 95 ml; Contrast route: INTRAVENOUS (IV); Other contrast: Oral, dilute Omni 300, 450; COMPARISON: US pelvic complete* [id number] 05/10/2020 4:46 PM RADIATION DOSE METRICS: Total DLP (mGy-cm): 1018.61 FINDINGS: Lungs: There is mild dependent atelectasis at the lung bases. Liver: There is mild periportal edema in the liver. There is mild enlargement of the liver. Gallbladder and bile ducts: There is diffuse gallbladder wall thickening and some pericholecystic fluid. This corresponds with findings on today's ultrasound examination and is worrisome for acute cholecystitis. Pancreas: The pancreas is normal. Spleen: The spleen is normal. Adrenal glands: The adrenal glands are normal. Kidneys and ureters: The kidneys are normal. There is no evidence of hydronephrosis. Stomach and bowel: Unremarkable. No obstruction. No mucosal thickening. Appendix: A normal appendix is identified. The appendix is located lateral to the inferior tip of the liver. Intraperitoneal space: There is a small amount of ascites throughout the abdomen. Vasculature: Unremarkable. No abdominal aortic aneurysm. Lymph nodes: Unremarkable. No enlarged lymph nodes. Urinary bladder: There is mild thickening of the wall of the urinary bladder. Please correlate for any symptoms or signs of urinary tract infection. Reproductive: Uterus is enlarged, the appearance is consistent with the history of recent status. Bones/joints: Unremarkable. No acute fracture. Soft tissues: Unremarkable. CT/CT abdomen pelvis w con* [id number] IMPRESSION: 1. Ascites 2. Abnormal thickening of the gallbladder wall which is suggestive of acute cholecystitis. 3. Enlarged but otherwise unremarkable uterus. 4. Mild thickening of the urinary bladder wall suggesting possible urinary tract infection. Radiation Dose CTDIVOL = (mGy): DLP = 1018.61 (mGy-cm)
[2020-05-10 21:26] LABS: Glucose Point of Care 78 mg/dL (70-110)
[2020-05-10] MEDS: iohexol 300 mg/mL 50 mL Btl PO (21:32)
[2020-05-10] MEDS: dextrose 5%-sod chloride 0.45% 1,000 ML 75 ML IV (21:33)
[2020-05-10] MEDS: HYDROmorphone 1 mg/mL INJ 1 mL 2 MG IVP (21:36)
--- NOTE | 2020-05-10 21:48 | PC.NURSE ---
Addendum entered by Prabha Saenz RN 05/10/20 22:17: patient heart rate on arrival in the 130s consistently. Dr Cruz is aware. Has been in to see patient. Original Note: Patient received from ED ~2029. Patient able to step and transfer from stretcher to bed with minimal contact assist. Patient c/o severe pain to left upper quadrant with generalized pain to abd. Abdomen very tender with light palpation. Patient is 7 days post . Belongings at bedside. Admission completed as documented.
[2020-05-10] MEDS: iohexol 300 mg/mL 100 mL Btl IV (22:44)
[2020-05-11] VITALS (13 sets, daily range): BP systolic 88–117; BP diastolic 60–72; PULSE 122–143; RESP 17–29; TEMP 36.4–37.5; O2SAT 91–99
[2020-05-11] MEDS: piperacillin-tazobactam 3.375 GM in sodium chloride 0.9% (plus) 50 ML IV ×3 (00:34→16:48)
[2020-05-11] MEDS: HYDROmorphone 1 mg/mL INJ 1 mL 2 MG IVP ×3 (01:17→20:39)
--- NOTE | 2020-05-11 01:43 | PC.NURSE ---
Patient's heart rate continues to be 138-139 consistently. Rhythm currently sinus tachycardia. Patient denies any dizziness or lightheadedness and no palpitations. Informed Dr Cruz. No new orders received. Doctor stated, We are treating underlying cause.
[2020-05-11] MEDS: sodium chloride 0.9% 1,000 ML 999 ML IV (02:06)
[2020-05-11 02:37] LABS: D Dimer 3.93 ug/mIFEU (0-0.59)
[2020-05-11 04:22] LABS: Hematocrit 34.5 % (37.0-47.0); Mean Corpuscular HGB Conc 31.9 g/dL (30.0-36.0); Mean Corpuscular Hemoglobin 31.5 pg (28.0-34.0); Mean Corpuscular Volume 98.9 fL (81-99); Mean Platelet Volume 10.2 fL (7.4-10.4); Platelet Count 199 10^3/cmm (130-400); Red Blood Count 3.49 10^6/uL (4.1-5.3); Red Cell Distribution Width 13.3 % (12.1-15.1); White Blood Count 11.4 10^3/uL (4.0-10.0)
[2020-05-11 04:45] LABS: Alanine Aminotransferase 23 U/L (0-33); Alkaline Phosphatase 241 IU/L (35-105); Anion Gap 14.5 (5-19); Aspartate Amino Transferase 19 U/L (0-32); Blood Urea Nitrogen 14 mg/dL (6-20); Calcium 7.6 mg/dL (8.5-10.5); Carbon Dioxide 21 mmol/L (22-29); Chloride 106 mmol/L (98-107); Glomerular Filtration Rate 83.7 mL/min (90-130); Glucose 77 mg/dL (65-115); Osmolality Calculated 285 mOsm/kg (285-295); Potassium 3.5 mmol/L (3.5-5.1); Sodium 138 mmol/L (136-145); Total Bilirubin 0.5 mg/dL (0.15-1.2)
--- NOTE | 2020-05-11 05:37 | PM.CONSULT ---
Providers/Reason For Consult Consulting Physican/Specialty*: Romero Roque MD Reason for Consult*: Concern for cholecystitis Attending Physician: Evans Cruz MD History of Present Illness History of Present Illness Chief Complaint: I am hurting History of present illness: Ms Suma Muñiz is a pleasant 30 year old female recent vaginal delivery 1 week out. Patient started to experience worsening abdominal pain around 2-3 PM yesterday after caring for her baby and she reports that her pain got worse presented to the emergency department where she was further evaluated. Patient reports to me that she has been having abnormal vaginal discharge in comparison to her first she noticed that there is pus on morning rounds and smells bad.Patient gives history of nausea, abnormal urination and fevers.No evidence of clear history of COVID-19. Patient denies any history of fatty dyspepsia or gallbladder disease before and she reports that she never had any greasy food yesterday prior to her abdominal pain and she always eats healthy. Upon further evaluation the emergency department ultrasound showed cholelithiasis with concern of cholecystitis CT scan of the abdomen and pelvis was obtained that showed ascites and abnormal thickness of the gallbladder. Also mild thickness of the urinary bladder such as possible urinary tract infection. General surgery was consulted for further evaluation and potential intervention Ultrasound abdomen: FINDINGS: Liver: Flow in the portal vein is towards the liver. Liver is normal size and shows normal uniform echogenicity. There is no focal abnormality within the liver. Gallbladder: Multiple gallstones are present. There is abnormal thickening of the gallbladder wall which measures up to 10 mm in thickness. Gallbladder appears mildly hypervascular. Common bile duct: Common bile duct measures 7 mm. Pancreas: Visualized portions of the pancreas are unremarkable. Right kidney: Right kidney is normal size with normal cortical thickness and echogenicity. There is no hydronephrosis. US/US gall bladder [id number] IMPRESSION: 1. Cholelithiasis and cholecystitis. 2. Mild dilatation of the common bile duct. CT scan of the abdomen and pelvis Lungs: There is mild dependent atelectasis at the lung bases. Liver: There is mild periportal edema in the liver. There is mild enlargement of the liver. Gallbladder and bile ducts: There is diffuse gallbladder wall thickening and some pericholecystic fluid. This corresponds with findings on today's ultrasound examination and is worrisome for acute cholecystitis. Pancreas: The pancreas is normal. Spleen: The spleen is normal. Adrenal glands: The adrenal glands are normal. Kidneys and ureters: The kidneys are normal. There is no evidence of hydronephrosis. Stomach and bowel: Unremarkable. No obstruction. No mucosal thickening. Appendix: A normal appendix is identified. The appendix is located lateral to the inferior tip of the liver. Intraperitoneal space: There is a small amount of ascites throughout the abdomen. Vasculature: Unremarkable. No abdominal aortic aneurysm. Lymph nodes: Unremarkable. No enlarged lymph nodes. Urinary bladder: There is mild thickening of the wall of the urinary bladder. Please correlate for any symptoms or signs of urinary tract infection. Reproductive: Uterus is enlarged, the appearance is consistent with the history of recent status. Bones/joints: Unremarkable. No acute fracture. Soft tissues: Unremarkable. CT/CT abdomen pelvis w con* [id number] IMPRESSION: 1. Ascites 2. Abnormal thickening of the gallbladder wall which is suggestive of acute cholecystitis. 3. Enlarged but otherwise unremarkable uterus. 4. Mild thickening of the urinary bladder wall suggesting possible urinary tract infection. Review of Systems General: Reports: 10 or more systems reviewed and unremarkable except in HPI and below Meds/Allergies Home Medications and Allergies Home Medications Medication Instructions Recorded Confirmed Last Taken Type blood-glucose meter #1 each 02/26/20 05/10/20 Unknown Rx insulin syringes (disposable) 1 mL #500 each 03/20/20 05/10/20 Unknown Rx lurasidone 20 mg tablet 20 mg PO DAILY #30 tab 04/20/20 05/10/20 05/09/20 Rx acetaminophen 325 mg PO Q4H PRN #60 cap 05/04/20 05/10/20 05/10/20 Rx ibuprofen 800 mg PO TID PRN #60 tab 05/04/20 05/10/20 05/10/20 Rx Allergies Allergy/AdvReac Type Severity Reaction Status Date / Time RED MEAT Allergy Mild ALGY-Hives Uncoded 05/11/20 08:01 Current Medications Current Medications Generic Name Dose Route Start Last Admin Trade Name Freq PRN Reason Stop Dose Admin Hydromorphone HCl 2 mg 05/10/20 21:05 05/11/20 01:17 Hydromorphone 1 Mg/Ml Inj 1 Ml IVP 2 mg Q4H PRN Administration abd pain Dextrose/Sodium Chloride 1,000 mls @ 75 mls/hr 05/10/20 20:17 05/11/20 05:19 Dextrose 5%-Sod Chloride 0.45% IV 75 mls/hr .[id number] JAREN Infusion Piperacillin Sod/Tazobactam 50 mls @ 12.5 mls/hr 05/11/20 01:00 05/11/20 05:00 Sod 3.375 gm/ Sodium Chloride IV Infused Q8H JAREN Infusion Protocol As Directed Insulin Aspart 0 unit 05/10/20 21:00 05/10/20 21:23 Insulin Aspart 100 Unit/1 Ml SUBCUT Not Given WM&BEDTIME JAREN Protocol PFSH Acute PFSH: Medical History Bipolar disorder Drug use complicating Gestational diabetes History of drug abuse Term delivered Tobacco use Surgical History H/O LEEP (~2013) states she had moderate dysplasia No pertinent past surgical history Family History Grandmother Breast cancer, Onset Age: 60 MGGM Uterine cancer, Onset Age: 38 MGM Unknown No pertinent family history hypertension, high cholesterol, diabetes, thyroid or stroke Social History Smoking and tobacco status: current every day smoker cigarettes Packs smoked per day: 0.25 [ Other cigarette details: was smoking up to 1/2-1ppd ] and e-cigarettes E-Cigarette Details: vaporizer device E-cig/vape details: every other day Alcohol intake: never Vitals/I&O/Wt Last Vital Signs Temp 97.5 F L 05/11/20 04:00 Pulse 140 H 05/11/20 04:00 Resp 26 H 05/11/20 04:00 BP 88/60 05/11/20 04:00 Pulse Ox 94 05/11/20 04:00 05/10/20 05/10/20 05/11/20 14:59 22:59 06:59 Intake Total 1632.5 / 1632.5 Output Total 750 / 750 Balance 882.5 / 882.5 Weight last 48 hrs Weight 170 lb Physical Exam Narrative: EXAM NARRATIVE: Patient is conscious alert oriented X3 BMI 27 Head and neck examination PERRLA no masses no cervical lymphadenopathy no jaundice Cardiac examination audible S1-S2 no murmurs no gallops no arrhythmias Chest is clear bilateral,abscence of Rhonchi or wheezes,no surgical emphysema Abdomen tenderess at the mid part of the abdomen less at the right upper quadrant and maximal tenderness in the suprapubic region and right lower quadrant. Moderately distended Patient reports purulent discharge per vagina Data Micro: Micro: Microbiology 05/10/20 20:17 Blood Culture - Pr eliminary Blood SPECIMEN [facility] 05/10/20 20:20 Blood Culture - Pr eliminary Blood SPECIMEN [facility] A&P Assessment and plan (1) Sepsis: After thorough history physical examination and reviewing the chart and images with my personal interpretation. I do not believe that the ultrasound features of the gallbladder matches the clinical history and physical examination yet the patient does have third spacing and edematous tissues and that could be part of the gallbladder findings on the ultrasound. Giving the history of purulent discharge per vagina per patient's reporting and the maximal tenderness in the suprapubic region and right lower quadrant and in the presence of urinary tract infection I am concerned about infection. I would recommend highly to have the patient in the ICU being hypotensive and tachycardic definitely gives a septic picture and I would prefer to have our GEOTHERMAL OPERATIONS MANAGER colleagues to evaluate the patient clinically for further care. We will continue to follow on the patient but I do not see an acute indication for surgical intervention for the gallbladder at this point. I do believe fluid resuscitation and broad-spectrum antibiotics and obtaining cultures and to follow on results. Please call for any questions or concerns I did educate the patient about pointing out to any discharge to her nursing staff so they can appreciate the pus that she is describing. Assurance and education All questions have been answered and all concerns have been addressed to patient's satisfaction. Status: Acute Consult Attestations Medical Necessity Statement: Inpatient hospitalization requiring IV fluid resuscitation and further care Time Spent in Patient Care: (>than 50% of time spent in counselling and/or direct pt care on unit). 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
[2020-05-11 06:29] LABS: Slide Review Slide Review Perform
[2020-05-11 06:39] LABS: Absolute Eosinophils 0.1 10^3/cmm (0.0-0.7); Band Neutrophils Absolute 3.8 10^3/cmm (0.0-1.2); Eosinophils 1 %; Lymphocytes 4 %; Monocytes Absolute 0.7 10^3/cmm (0.1-0.6); Segmented Neutrophils 53 %; Total Cells Counted 100 (0-100)
[2020-05-11 06:40] LABS: Absolute Neutrophil 9.8 10^3/cmm (1.4-6.5); Platelet Estimate Normal (Normal); Polychromasia 1+
[2020-05-11] MEDS: sodium chloride 0.9% 500 ML 999 ML IV (06:41)
[2020-05-11 07:05] LABS: Glucose Point of Care 78 mg/dL (70-110)
--- NOTE | 2020-05-11 07:45 | PC.NURSE ---
0745-- RECEIVED PT FROM [facility] FOR HYPOTENSION, TACHYCARDIA & POSSIBLE UTERINE INFECTION & UTI. PLACED A REGULAR SIZED BLOOD PRESSURE CUFF ON PT, BP & MAP WNL. ASSISTED DR STAHL WITH PELVIC EXAM, NO DRAINAGE NOTED ON PAD. PT INSTRUCTED TO SHOW ALL DIRTY PADS TO NURSE & USE BSC TO VOID FOR ACCURATE MEASUREMENTS, VOICED UNDERSTANDING.
--- NOTE | 2020-05-11 08:16 | PM.CONSULT ---
Providers/Reason For Consult Consulting Physican/Specialty*: Jaime aRmos MD Reason for Consult*: Possible uterine infection Attending Physician: Dominik Wright History of Present Illness History of Present Illness Patient is a 30-year-old female 3, para 2-0-1-2 who is 8 days following a vaginal delivery on 05/03/2020. She presented to the emergency department last night with abdominal pain. Patient states that on Monday she noticed abdominal discomfort that was making it difficult to get up. It worsened on Monday and as a result she came to the ER. She stated that it hurt to move or to bend. She basically states her whole abdomen hurts. She is also reporting pain with urination, but states this is been present since delivery. She denied having any fevers, but states that she has been sweating at night. She stated she did not take her temperature. She denied any nausea or vomiting. She reports that her bleeding has continued to slow. She has noticed a little bit more of an odor to the discharge. She denies any breast tenderness or breast concerns. She denies any respiratory symptoms or cough. She did not have any vaginal perineal lacerations at delivery. Her evaluation in the ER had shown an enlarged, inflamed gallbladder and general surgery was consulted. She was also noted to have possible cystitis on a catheterized urine sample. She was admitted to the hospital. I was consulted this morning due to concerns because possible purulent vaginal discharge with odor. Also, general surgeon did not think her gallbladder was the cause for all of her symptoms. Review of Systems Const: Denies: fever(s) or chills ENMT: Denies: throat pain or nasal congestion Card: Reports: chest pain; Denies: palpitations or lightheadedness Resp: Denies: dyspnea, productive cough, non-productive cough or wheezing GI: Reports: abdominal pain; Denies: nausea, vomiting, diarrhea or constipation : Reports: dysuria, vaginal odor, vaginal bleeding () and vaginal discharge; Denies: difficulty voiding or genital pruritis Skin/Breast: Denies: rash, new lesions, breast pain, nipple discharge, breast mass or breast skin changes Neuro: Denies: headache(s) or dizziness Psych: Denies: anxiety or depression Endo: Reports: hot flashes Georges/Lymph: Denies: easy bruising or easy bleeding Meds/Allergies Home Medications and Allergies Home Medications Medication Instructions Recorded Confirmed Last Taken Type blood-glucose meter #1 each 02/26/20 05/10/20 Unknown Rx insulin syringes (disposable) 1 mL #500 each 03/20/20 05/10/20 Unknown Rx lurasidone 20 mg tablet 20 mg PO DAILY #30 tab 04/20/20 05/10/20 05/09/20 Rx acetaminophen 325 mg PO Q4H PRN #60 cap 05/04/20 05/10/20 05/10/20 Rx ibuprofen 800 mg PO TID PRN #60 tab 05/04/20 05/10/20 05/10/20 Rx Allergies Allergy/AdvReac Type Severity Reaction Status Date / Time RED MEAT Allergy Mild ALGY-Hives Uncoded 05/11/20 08:01 Current Medications Current Medications Generic Name Dose Route Start Last Admin Trade Name Freq PRN Reason Stop Dose Admin Hydromorphone HCl 2 mg 05/10/20 21:05 05/11/20 01:17 Hydromorphone 1 Mg/Ml Inj 1 Ml IVP 2 mg Q4H PRN Administration abd pain Dextrose/Sodium Chloride 1,000 mls @ 75 mls/hr 05/10/20 20:17 05/11/20 05:19 Dextrose 5%-Sod Chloride 0.45% IV 75 mls/hr .[id number] JAREN Infusion Piperacillin Sod/Tazobactam 50 mls @ 12.5 mls/hr 05/11/20 01:00 05/11/20 05:00 Sod 3.375 gm/ Sodium Chloride IV Infused Q8H JAREN Infusion Protocol As Directed Insulin Aspart 0 unit 05/10/20 21:00 05/10/20 21:23 Insulin Aspart 100 Unit/1 Ml SUBCUT Not Given WM&BEDTIME JAREN Protocol PFSH Acute PFSH: Medical History Bipolar disorder Drug use complicating Gestational diabetes History of drug abuse Term delivered Tobacco use Surgical History H/O LEEP (~2013) states she had moderate dysplasia No pertinent past surgical history Family History Grandmother Breast cancer, Onset Age: 60 MGGM Uterine cancer, Onset Age: 38 MGM Unknown No pertinent family history hypertension, high cholesterol, diabetes, thyroid or stroke Social History (Updated 05/11/20 @ 08:38 by Jaime Ramos MD) Smoking and tobacco status: current every day smoker cigarettes Packs smoked per day: 0.25 [ Other cigarette details: was smoking up to 1/2-1ppd ] and e-cigarettes E-Cigarette Details: vaporizer device E-cig/vape details: every other day Alcohol intake: never Substance/Drug Use: current Substance/Drug use frequency: few times a month Substance/Drug use type: Marijuana Other substance/drug use details: 09/2019: 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 Other details last substance use: Uses marijuana to treat her stress Vitals/I&O/Wt Last Vital Signs Temp 97.5 F L 05/11/20 04:00 Pulse 140 H 05/11/20 04:00 Resp 26 H 05/11/20 04:00 BP 88/60 05/11/20 04:00 Pulse Ox 94 05/11/20 04:00 05/10/20 05/11/20 05/11/20 22:59 06:59 14:59 Intake Total 1632.5 / 1632.5 Output Total 750 / 750 Balance 882.5 / 882.5 Weight last 48 hrs Weight 170 lb Physical Exam Const: COMMON NORMALS: no acute distress, average body habitus, alert and well nourished GENERAL APPEARANCE: well developed ORIENTATION/CONSCIOUSNESS: Yes oriented to person, Yes oriented to place and Yes oriented to time Neck/C-Spine: COMMON NORMALS: Thyroid normal GENERAL: Yes trachea midline THYROID: Thyroid normal Lymph: LYMPHATIC: no lymphadenopathy noted (Axillary, Groin) Chest: BREAST/AXILLA PALPATION: Yes normal palpation of the axillae NIPPLE/AREOLA: Yes nipples/areola normal Resp: COMMON NORMALS: normal respiratory effort and clear to auscultation bilaterally AUSCULTATION: clear to auscultation bilaterally Cardio: COMMON NORMALS: regular rate, regular rhythm, No gallops present (Cardio), No murmurs present (Cardio) and No rub (Cardio) RATE: regular rate RHYTHM: regular rhythm GI: COMMON NORMALS: Soft to palpation, No hepatosplenomegaly present and no masses AUSCULTATION: Yes normoactive bowel sounds PALPATION: Yes Soft to palpation, Yes Tenderness to palpation present (GI) (Tenderness throughout the abdomen, worse in the RUQ and lower abdomen), No Guarding due to palpation present (GI), No Rigid due to palpation, Yes No hepatosplenomegaly present and No Hernia present : COMMON NORMALS: Yes no CVA tenderness BLADDER/KIDNEY EXAM: Yes no CVA tenderness EXTERNAL FEMALE EXAM: No Hernia present OTHER: External genitalia: Normal in appearance with no lesions seen. No erythema or labial induration noted. discharge with odor noted. Anus/perineum: No perineal lesions noted. Urethral meatus: Normal in size and location with no lesions or prolapse noted Urethra: Nontender with no palpable masses noted. Bladder: Tender with no palpable masses noted. Vagina: lochia present. No palpable masses noted. Cervix: Cervix essentially closed. Uterus: Approximately 8-week size uterus. Tender to palpation. Adnexa: Neither ovary palpable. Back/Pelvis: COMMON NORMALS: no CVA tenderness Neuro: SENSORIUM/ORIENTATION: Yes alert, Yes oriented to person, Yes oriented to place and Yes oriented to time Psych: COMMON NORMALS: normal affect MOOD & AFFECT: Yes euthymic mood Skin: COMMON NORMALS: no rashes or lesions noted GENERAL SKIN EXAM: no rashes or lesions noted Data Micro: Micro: Microbiology 05/10/20 20:17 Blood Culture - Pr eliminary Blood SPECIMEN [facility] 05/10/20 20:20 Blood Culture - Pr eliminary Blood SPECIMEN [facility] A&P Assessment and plan (1) endometritis: Patient with abdominal pain with uterine tenderness noted on exam. Her white count is mildly elevated but not unexpected for . She has not been febrile. However, based upon the uterine tenderness, I would recommend proceeding as if she may have endometritis. She has already been started on Zosyn which should provide adequate coverage for most of our typical CLERICAL INVESTIGATOR organisms. White blood count was 12.5 on admission. This morning it was down to 11.4. I discussed with the hospitalist to be careful regarding fluid boluses due to the fluid changes that can occur following delivery of the baby. Status: Acute (2) UTI (urinary tract infection): Patient diagnosed with a UTI in the ER. Her UA showed positive nitrites 2+ leukocytes greater than 100 RBCs and too numerous to count WBCs with 5-10 squamous cells and 4+ bacteria. This was reported to be a catheterized urine. However, the amount of squamous cells raises questions in regards to the collection. Everything seen in the urine could be related to the normal vaginal discharge that we see . A repeat of the catheterized urine with emphasis on eliminating all possibility of vaginal contamination may be of benefit. However, the antibiotic she is on should cover for an actual UTI if present. 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
--- NOTE | 2020-05-11 09:10 | PC.RESP ---
SMOKING CESSATION INFORMATION SENT TO PATIENT.
--- NOTE | 2020-05-11 09:31 | PC.CHAP ---
Pastoral Care Encounter/Spiritual Assessment Type of Contact [] Declined mine production engineer visit [] Patient/Family/Request visit [] Outpatient visit [] Follow-up visit [] Physician referral [] Code/Alert [] Routine visit [] Staff referral [] Actively dying [] Patient sleeping [] Family support [] [] Out of room [] Palliative care [] [] Receiving care in room [] Pre-surgical visit [] Trauma [] Long length of stay [] ICU visit [] Other: Relational/Emotional Strength [] Patient feels connected with others/family/visitors/staff [] Distress [] Loneliness/isolation [] Abandonment Spirituality of Patient [] Person of Madeline [] Attends Caodaism of their Madeline [] Believes in Prayer [] Reads Bible or Advent materials [] There are Spiritual issues to be addressed Social And Political Studies Professor Interventions [x] Prayer [] Active listening [] Non-anxious presence [] Spiritual/emotional support [] Crisis/trauma care [] Spiritual counseling [] Bereavement support [] Provided bereavement packet [] Provided Bible/devotional materials [] Provided toy/stuffed animal, coloring book to patient or family member [] Provided Communion [] Anointing/[place] [] Salvation [x] Completed spiritual assessment [] Other: Impact on Illness or Injury [] Angry [] Fearful [] Anxious [] Often cries [] Exhaustion [] Unable to work [] Unable to attend adventist [] Unable to walk/stand [] Unable to read [] Unable to drive [] Unable to eat/drink [] Unable to sleep [] Unable to be with family [] Patient intubated [] Other: Summary Time spent with patient
--- NOTE | 2020-05-11 10:19 | P.PN_ITS ---
Subjective Subjective: Interval history: She is feeling a little better. Reports lower abdominal discomfort. Previously nausea, no vomiting. No dizziness. No chest pain. Previously had dysuria, now says this is gone. Vitals/I&O/Wt Last Vital Signs Temp 99.5 F 05/11/20 08:00 Pulse 131 H 05/11/20 08:00 Resp 29 H 05/11/20 08:00 BP 97/62 05/11/20 08:00 Pulse Ox 96 05/11/20 08:00 05/10/20 05/11/20 05/11/20 22:59 06:59 14:59 Intake Total 1632.5 / 1632.5 Output Total 750 / 750 50 / 50 Balance 882.5 / 882.5 -50 / -50 Weight last 48 hrs Weight 77.111 kg Physical Exam Const: COMMON NORMALS: no acute distress and patient oriented x3 HENMT: COMMON NORMALS: oropharynx normal Neck/C-Spine: COMMON NORMALS: no JVD Resp: COMMON NORMALS: normal respiratory effort and clear to auscultation bilaterally AUSCULTATION: clear to auscultation bilaterally Cardio: COMMON NORMALS: no JVD, regular rhythm, S1 normal heart sound present, S2 normal heart sound present and No murmurs present (Cardio) RHYTHM: regular rhythm HEART SOUNDS: S1 normal heart sound present and S2 normal heart sound present GI: COMMON NORMALS: Normal to inspection, nondistended, normoactive bowel sounds present and non-tender PALPATION: Yes Tenderness to palpation present (GI) (Lower abdomen. Tender L side. Less tender RUQ. ) Extremity: COMMON NORMALS: no joint enlargement and no pedal edema Neuro: COMMON NORMALS: patient oriented x3 and moves all extremities Skin: COMMON NORMALS: no rashes or lesions noted GENERAL SKIN EXAM: no rashes or lesions noted Data : 05/11/20 03:32 05/11/20 03:32 Micro: Microbiology 05/10/20 20:17 Blood Culture - Preliminary Blood SPECIMEN COLLECTED 05/10/20 20:20 Blood Culture - Preliminary Blood SPECIMEN COLLECTED A&P Assessment and plan (1) Sepsis: Possible endometritis, discussed with BEHAVIORAL HEALTH PROFESSIONAL. I will go ahead and broaden antibiotics with addition of vancomycin. Continue Zosyn. Watch out for in possible cardiomyopathy. Possible urinary tract infection with thickening of urinary bladder. She reports some dysuria prior to her presentation. Other consideration may be local inflammation from other infectious process in the area. Follow urine culture. Repeat urine studies. Appreciate general surgery assessment regarding possible cholecystitis. Some thickening of gallbladder wall is noted. Clinically this seems to be less likely source per surgery. Status: Acute (2) Cholecystitis: As above. Status: Acute (3) UTI (urinary tract infection): As above. Status: Acute Additional A&P Information Vaginal bleeding Gestational diabetes: I will keep her on D5 half-normal saline fluid resuscitation along sliding scale, Full code N.p.o. DVT prophylaxis SCDs, will avoid anticoagulation in case she would require surgical intervention Attestations Medical Necessity Statement*: Continue admission for assessment management of sepsis. Coding Level of Care Code Acute Type Copy Examiner for g Fwd Exam Comprehensive Diagnoses Sepsis A41.9 Cholecystitis K81.9 UTI (urinary tract infection) N39.0
[2020-05-11 11:07] LABS: Glucose Point of Care 60 mg/dL (70-110)
[2020-05-11] MEDS: dextrose 50% syringe 50 mL 25 ML IVP (11:11)
--- NOTE | 2020-05-11 11:16 | PC.NURSE ---
Blood Sugar Blood sugar noted to be 60 at this time. IVP of D50 25ml, D5W started at 50ml/hr given per protocol. Blood sugar rechecked after IVP was administered, blood sugar 64 at time time. Pt tolerated well. Physician notified pt changed to clear liquid diet. This nurse gave the pt apple juice, will continue to monitor.
[2020-05-11 11:56] LABS: Glucose Point of Care 64 mg/dL (70-110)
[2020-05-11] MEDS: dextrose 5 % 500 ML 50 ML IV (12:02)
[2020-05-11 12:13] LABS: Bilirubin Urine Neg (Negative); Blood Urine Neg (Negative); Glucose Urine UA Norm (Normal); Ketones Urine Negative (Negative); Leukocyte Esterase Urine Negative (Negative); Nitrate Urine Negative (Negative); Protein Urine Neg (Negative); Specific Gravity, Urine 1.015 (1.005-1.030); Urine Appearance SL Hazy (CLEAR); Urine Color Yellow (Yellow); Urobilinogen Urine Norm (Negative); pH Urine 5 (5-7)
[2020-05-11 12:14] LABS: Add Urine Microscopic? YES; RBC Urine 0-4 /hpf (0-2); Squamous Epithelial Cell Urine 0-4 /hpf (0-5); WBC Urine >100 /hpf (0-5)
[2020-05-11 12:15] LABS: Bacteria Urine 1+ /hpf
[2020-05-11 12:41] LABS: Glucose Point of Care 61 mg/dL (70-110)
[2020-05-11 13:10] LABS: Glucose Point of Care 69 mg/dL (70-110)
[2020-05-11] MEDS: vancomycin 1,250 MG/250 ML PIGGYBACK 200 MG IV (13:44)
[2020-05-11 15:50] LABS: Glucose Point of Care 70 mg/dL (70-110)
[2020-05-11 16:53] LABS: Glucose Point of Care 96 mg/dL (70-110)
[2020-05-11] MEDS: lurasidone 20 mg Tablet PO (21:45)
[2020-05-11 21:55] LABS: Glucose Point of Care 79 mg/dL (70-110)
[2020-05-12] VITALS (13 sets, daily range): BP systolic 96–129; BP diastolic 55–76; PULSE 121–140; RESP 14–39; TEMP 36.8–39.4; O2SAT 91–96
--- NOTE | 2020-05-12 | USCV_ITS ---
Suma Muñiz Age: 30 Gender: F : 1990 Exam Date: 05/12/2020 12:42 Ordering Phys: Dominik Wright MD Technologist: Randolph Camarena Exam Location: [facility] – [place] Indication: VTE - PELVIC VEINS HISTORY: VTE PROCEDURES: Venous duplex imaging was performed in bilateral pelvic region FINDINGS: No change in wave form or thrombus noted bilaterally in the pelvic veins. CONCLUSIONS No pelvic vein thrombosis seen. Dr. Frances Fairchild DO (Electronically Signed) Final Date: 12 May 2020 15:14 S
--- NOTE | 2020-05-12 00:10 | PC.NURSE ---
BLADDER SCAN Per day shift RN, patient had been straight cathed due to urinary retention. Patient bladder scanned by current nurse and it read >[address] Cruz called to ask if he wanted indwelling or wanted to continue with straight caths. Order for indwelling catheter obtained and placed. Patient had 600 mL urine output once nava put in.
--- NOTE | 2020-05-12 00:15 | PC.NURSE ---
TACHYCARDIA Patients heart rate has been sustaining in the 140s since about 1945. Dr. Cruz notified upon phone call obtaining order for indwelling catheter. Dr. Cruz notified of heart rate at 0022 also. Gave order for 1 liter bolus of normal saline and to notify is heart rate does not decrease post bolus.
--- NOTE | 2020-05-12 00:29 | PC.NURSE ---
HOME MEDS IN [facility]
[2020-05-12] MEDS: sodium chloride 0.9% 1,000 ML 999 ML IV (00:33)
[2020-05-12] MEDS: piperacillin-tazobactam 3.375 GM in sodium chloride 0.9% (plus) 50 ML IV ×3 (00:33→15:55)
[2020-05-12] MEDS: acetaminophen 325 mg Tablet PO (00:37)
[2020-05-12] MEDS: vancomycin 1,250 MG/250 ML PIGGYBACK 200 MG IV ×2 (01:54→14:55)
[2020-05-12] MEDS: HYDROmorphone 1 mg/mL INJ 1 mL 2 MG IVP ×4 (02:15→18:54)
--- NOTE | 2020-05-12 02:50 | PC.NURSE ---
CHEST PAIN Patient complained of chest pain and shortness of breath. Respiratory obtained EKG with no abnormal findings other than tachycardia. Physician notified and 2 L oxygen placed on patient.
--- NOTE | 2020-05-12 02:54 | CTR_ITS ---
PROCEDURE INFORMATION: Exam: CT Angiography Chest With Contrast Exam date and time: 05/12/2020 3:20 AM Age: 30 years old Clinical indication: Bloating; Shortness of breath; Additional info: Sinus tach; 8 days per an ICU nurse. TECHNIQUE: Imaging protocol: Computed tomographic angiography of the chest with intravenous contrast. 3D rendering (Not supervised by radiologist): MIP and/or 3D reconstructed images were created by the technologist. Radiation optimization: All CT scans at this facility use at least one of these dose optimization techniques: automated exposure control; mA and/or kV adjustment per patient size (includes targeted exams where dose is matched to clinical indication); or iterative reconstruction. Contrast material: OMNI 350; Contrast volume: 95 ml; Contrast route: INTRAVENOUS (IV); COMPARISON: CR XR chest 1V portable [id number] 05/10/2020 7:36 PM RADIATION DOSE METRICS: Total DLP (mGy-cm): 1525.27 FINDINGS: Limitations: Suboptimal pulmonary arterial enhancement. Motion on some slices. Pulmonary arteries: No suggestion of a large central or segmental pulmonary embolus. Detail of multiple small pulmonary arteries not adequate to exclude filling defects. Aorta: No aortic aneurysm or dissection. Lungs: Small focus of paraseptal blebs in the posterior right upper lobe. Subsegmental atelectasis in each lower lobe. Pleural space: Minimal right pleural effusion. Questionable tiny amount of left pleural fluid. No pneumothorax. Heart: No cardiomegaly or pericardial effusion. Lymph nodes: No enlarged nodes. Bones/joints: A few old slight compression fractures. Soft tissues: Extensive patchy glandularity in the breasts. IMPRESSION: 1. No suggestion of a large pulmonary embolus on this suboptimal study. 2. Subsegmental atelectasis in each lower lobe. Minimal emphysematous blebs in the right upper lobe. 3. Minimal right pleural effusion. Questionable tiny left pleural effusion. Other findings detailed above. PROCEDURE INFORMATION: Exam: CT Abdomen And Pelvis With Contrast Exam date and time: 05/12/2020 3:20 AM Age: 30 years old Clinical indication: Bloating; Shortness of breath; Additional info: Sinus tach; 8 days per an ICU nurse. TECHNIQUE: Imaging protocol: Computed tomography of the abdomen and pelvis with intravenous contrast. Radiation optimization: All CT scans at this facility use at least one of these dose optimization techniques: automated exposure control; mA and/or kV adjustment per patient size (includes targeted exams where dose is matched to clinical indication); or iterative reconstruction. Contrast material: OMNI 350; Contrast volume: 95 ml; Contrast route: INTRAVENOUS (IV); COMPARISON: CR XR chest 1V portable [id number] 05/10/2020 7:36 PM RADIATION DOSE METRICS: Total DLP (mGy-cm): 1525.27 FINDINGS: Liver: Periportal edema in the liver. No apparent liver mass. Gallbladder and bile ducts: Multiple rounded areas of decreased density within the gallbladder silhouetted by slightly increased density within the gallbladder; apparent lamellation within 1 of these rounded areas. No extrahepatic biliary ductal dilatation. Small amount of fluid between the gallbladder and liver. Pancreas: Unremarkable. No ductal dilation. Spleen: Slight splenomegaly. Adrenal glands: No adrenal mass. Kidneys and ureters: Minimal right hydronephrosis. No left hydronephrosis. Mild dilatation of the proximal half of the right ureter. No suggestion of a ureteral stone. Stomach and bowel: Mild gaseous and fluid distension of the stomach. Fluid distension of the duodenum and multiple small bowel loops, with non-differential air-fluid levels in some of these loops. Slight oral contrast within the nondilated terminal ileum and the abruptly angulated nondilated ileum extending into it. Prominent oral contrast in the right colon. Fecalization of material in multiple right small-bowel loops. Appendix: Positioning of the distal appendix along the lateral margin of the inferior right lobe of the liver. No appendicitis. Intraperitoneal space: No free air. Extensive mild free fluid. 15 x 9 mm ring calcification along the right pelvic sidewall with free fluid extending around much of its margins. Vasculature: [id number] right and mild left ovarian varices. Unremarkable aorta. Lymph nodes: No suspicious nodes. Urinary bladder: Mckay catheter in the collapsed bladder. Reproductive: Enlarged uterus consistent with the state. Bones/joints: Unremarkable. No acute fracture. Soft tissues: Body wall edema. CT/CT angio chest w abd pel w con IMPRESSION: 1. Findings suggestive of low grade small bowel obstruction, likely chronic in nature. No free air. 2. Extensive mild free fluid. 15 x 9 mm ring calcification along the right pelvic sidewall questionably due to an extruded gallstone or phlebolith. Filling defects within slightly increased density in the gallbladder consistent with gallstones. 3. Periportal edema in the liver possibly due to hepatitis or cholecystitis among other processes. 4. Splenomegaly. 5. Minimal right hydronephrosis and mild upper right hydroureter, cause and age unclear. 6. Bilateral ovarian varices. Uterine enlargement consistent with the state. Other findings detailed above. Radiation Dose CTDIVOL = (mGy): DLP = 1525.27~1525.27 (mGy-cm)
[2020-05-12 02:57] LABS: Hematocrit 33.2 % (37.0-47.0); Hemoglobin 10.8 g/dL (11.5-15.3); Mean Corpuscular HGB Conc 32.5 g/dL (30.0-36.0); Mean Corpuscular Hemoglobin 31.9 pg (28.0-34.0); Mean Corpuscular Volume 97.9 fL (81-99); Mean Platelet Volume 10.1 fL (7.4-10.4); Platelet Count 181 10^3/cmm (130-400); Red Blood Count 3.39 10^6/uL (4.1-5.3); Red Cell Distribution Width 13.5 % (12.1-15.1); White Blood Count 13.5 10^3/uL (4.0-10.0)
[2020-05-12] MEDS: ketorolac 30 mg/mL INJ 15 MG IVP (03:07)
[2020-05-12 03:09] LABS: Alanine Aminotransferase 19 U/L (0-33); Alkaline Phosphatase 160 IU/L (35-105); Anion Gap 14.3 (5-19); Aspartate Amino Transferase 22 U/L (0-32); Blood Urea Nitrogen 10 mg/dL (6-20); Calcium 7.6 mg/dL (8.5-10.5); Carbon Dioxide 21 mmol/L (22-29); Chloride 102 mmol/L (98-107); Globulin 2.8 g/dL (1.3-4.6); Glomerular Filtration Rate 97.6 mL/min (90-130); Glucose 86 mg/dL (65-115); Osmolality Calculated 276 mOsm/kg (285-295); Potassium 3.3 mmol/L (3.5-5.1); Sodium 134 mmol/L (136-145); Total Bilirubin 1.3 mg/dL (0.15-1.2); Total Protein 4.8 g/dL (6.6-8.7)
[2020-05-12 03:36] LABS: Slide Review Slide Review Perform
[2020-05-12] MEDS: iohexol 350 mg/mL 100 mL Btl IV (03:56)
--- NOTE | 2020-05-12 05:21 | PC.NURSE ---
NG TUBE Physician ordered NG tube placement.
--- NOTE | 2020-05-12 05:49 | XR_ITS ---
WS: [id number] Exam: XR chest 1V portable [id number] Date/Time of Exam: 05/12/2020 5:49 AM Reason For Exam: OG placement Comparison 05/10/2020. An enteric tube has been placed and appears to end in the body the stomach. Areas of plaque atelectas is in the lower lung zones. Normal cardiomediastinal structures and bony elements. Monitoring leads s uperimpose the chest. XR/XR chest 1V portable [id number] IMPRESSION: 1. Enteric tube ending in the body the stomach. 2. Bibasal plaque atelectasis.
--- NOTE | 2020-05-12 05:54 | PM.PN ---
Subjective Subjective: Interval history: Patient undergone CT scan of the chest abdomen and pelvis by the hospitalist service overnight as as it was noticed increased abdominal distention. Overall patient is about the same yet she does complain of left lower quadrant abdominal pain more than the right side. NG was placed due to concern of gastric distention CT scan of the chest abdomen and pelvis was done and showed: CT/CT angio chest w abd pel w con 05/12/2020 6:16 AM FLIGHT ATTENDANT RAMP ADDENDUM: I discussed the study with Dr. Roque at the time of this addendum. I indicated to him that I see no fistula between the gallbladder and duodenum or common bile duct and there is no calcified stone in the common bile duct. The greatest width of the CBD is 5.7 mm. Radiation Dose CTDIVOL = (mGy): DLP = 1525.27~1525.27 (mGy-cm) Addendum Dictated By: Addie Russell MD Addendum Signed By: Addie Russell MDSigned Date/Time:05/12/20621 Addendum Cosigned By: PROCEDURE INFORMATION: Exam: CT Angiography Chest With Contrast Exam date and time: 05/12/2020 3:20 AM Age: 30 years old Clinical indication: Bloating; Shortness of breath; Additional info: Sinus tach; 8 days per an ICU nurse. TECHNIQUE: Imaging protocol: Computed tomographic angiography of the chest with intravenous contrast. 3D rendering (Not supervised by radiologist): MIP and/or 3D reconstructed images were created by the technologist. Radiation optimization: All CT scans at this facility use at least one of these dose optimization techniques: automated exposure control; mA and/or kV adjustment per patient size (includes targeted exams where dose is matched to clinical indication); or iterative reconstruction. Contrast material: OMNI 350; Contrast volume: 95 ml; Contrast route: INTRAVENOUS (IV); COMPARISON: CR XR chest 1V portable [id number] 05/10/2020 7:36 PM RADIATION DOSE METRICS: Total DLP (mGy-cm): 1525.27 FINDINGS: Limitations: Suboptimal pulmonary arterial enhancement. Motion on some slices. Pulmonary arteries: No suggestion of a large central or segmental pulmonary embolus. Detail of multiple small pulmonary arteries not adequate to exclude filling defects. Aorta: No aortic aneurysm or dissection. Lungs: Small focus of paraseptal blebs in the posterior right upper lobe. Subsegmental atelectasis in each lower lobe. Pleural space: Minimal right pleural effusion. Questionable tiny amount of left pleural fluid. No pneumothorax. Heart: No cardiomegaly or pericardial effusion. Lymph nodes: No enlarged nodes. Bones/joints: A few old slight compression fractures. Soft tissues: Extensive patchy glandularity in the breasts. IMPRESSION: 1. No suggestion of a large pulmonary embolus on this suboptimal study. 2. Subsegmental atelectasis in each lower lobe. Minimal emphysematous blebs in the right upper lobe. 3. Minimal right pleural effusion. Questionable tiny left pleural effusion. Other findings detailed above. PROCEDURE INFORMATION: Exam: CT Abdomen And Pelvis With Contrast Exam date and time: 05/12/2020 3:20 AM Age: 30 years old Clinical indication: Bloating; Shortness of breath; Additional info: Sinus tach; 8 days per an ICU nurse. TECHNIQUE: Imaging protocol: Computed tomography of the abdomen and pelvis with intravenous contrast. Radiation optimization: All CT scans at this facility use at least one of these dose optimization techniques: automated exposure control; mA and/or kV adjustment per patient size (includes targeted exams where dose is matched to clinical indication); or iterative reconstruction. Contrast material: OMNI 350; Contrast volume: 95 ml; Contrast route: INTRAVENOUS (IV); COMPARISON: CR XR chest 1V portable [id number] 05/10/2020 7:36 PM RADIATION DOSE METRICS: Total DLP (mGy-cm): 1525.27 FINDINGS: Liver: Periportal edema in the liver. No apparent liver mass. Gallbladder and bile ducts: Multiple rounded areas of decreased density within the gallbladder silhouetted by slightly increased density within the gallbladder; apparent lamellation within 1 of these rounded areas. No extrahepatic biliary ductal dilatation. Small amount of fluid between the gallbladder and liver. Pancreas: Unremarkable. No ductal dilation. Spleen: Slight splenomegaly. Adrenal glands: No adrenal mass. Kidneys and ureters: Minimal right hydronephrosis. No left hydronephrosis. Mild dilatation of the proximal half of the right ureter. No suggestion of a ureteral stone. Stomach and bowel: Mild gaseous and fluid distension of the stomach. Fluid distension of the duodenum and multiple small bowel loops, with non-differential air-fluid levels in some of these loops. Slight oral contrast within the nondilated terminal ileum and the abruptly angulated nondilated ileum extending into it. Prominent oral contrast in the right colon. Fecalization of material in multiple right small-bowel loops. Appendix: Positioning of the distal appendix along the lateral margin of the inferior right lobe of the liver. No appendicitis. Intraperitoneal space: No free air. Extensive mild free fluid. 15 x 9 mm ring calcification along the right pelvic sidewall with free fluid extending around much of its margins. Vasculature: [id number] right and mild left ovarian varices. Unremarkable aorta. Lymph nodes: No suspicious nodes. Urinary bladder: Mckay catheter in the collapsed bladder. Reproductive: Enlarged uterus consistent with the state. Bones/joints: Unremarkable. No acute fracture. Soft tissues: Body wall edema. CT/CT angio chest w abd pel w con IMPRESSION: 1. Findings suggestive of low grade small bowel obstruction, likely chronic in nature. No free air. 2. Extensive mild free fluid. 15 x 9 mm ring calcification along the right pelvic sidewall questionably due to an extruded gallstone or phlebolith. Filling defects within slightly increased density in the gallbladder consistent with gallstones. 3. Periportal edema in the liver possibly due to hepatitis or cholecystitis among other processes. 4. Splenomegaly. 5. Minimal right hydronephrosis and mild upper right hydroureter, cause and age unclear. 6. Bilateral ovarian varices. Uterine enlargement consistent with the state. Other findings detailed above. Vitals/I&O/Wt Last Vital Signs Temp 103.0 F H 05/12/20 00:00 Pulse 139 H 05/12/20 04:00 Resp 21 H 05/12/20 04:00 BP 96/55 05/12/20 04:00 Pulse Ox 93 05/12/20 04:00 05/11/20 05/11/20 05/12/20 14:59 22:59 06:59 Intake Total 660 / 660 530 / 1190 500 / 1690 Output Total 650 / 650 600 / 1250 Balance -70 / -60 500 / 440 Weight last 48 hrs Weight 186 lb 14.4 oz Weight 170 lb Physical Exam Narrative: EXAM NARRATIVE: Patient is conscious alert oriented X3 BMI 27 Head and neck examination PERRLA no masses no cervical lymphadenopathy no jaundice Cardiac examination audible S1-S2 no murmurs no gallops no arrhythmias Chest is clear bilateral,abscence of Rhonchi or wheezes,no surgical emphysema Abdomen tenderess at the mid part of the abdomen less at the right upper quadrant and maximal tenderness in the left lower quadrant Moderately distended Urinary Catheter Management^: Mckay: Cath Placed During This Visit: yes Urinary Catheter Date of Insertion: 05/11/20 Urinary Catheter Time of Insertion: 20:37 Data : 05/12/20 02:45 05/12/20 02:45 Micro: Microbiology 05/10/20 20:17 Blood Culture - Preliminary Blood NEGATIVE TO DATE 05/10/20 20:20 Blood Culture - Preliminary Blood NEGATIVE TO DATE A&P Assessment and plan (1) Sepsis: After history taking physical examination and reviewing the CT scan of the chest abdomen and pelvis with my personal interpretation and further discussing the images with Dr. Russell overnight radiologist, stones in the gallbladder are radiolucent and perhaps in the presence of a bilirubin of 1.3 elevated then the patient's baseline could raise the concern of a CBD stone although the diameter is not necessarily dilated yet radiolucent stones could be missed on the CBD so we will proceed with an MRCP. Based on the clinical exam patient complains of more tenderness on the left lower quadrant and she reports that had a bowel movement on the 14th and I do not see evidence of bowel obstruction on the CT scan particularly that the contrast is going all the way to the colon. So no evidence of pneumatosis or free air. Based on the concern of hepatitis we will send for hepatitis panel We will continue coordinating with Dr. Adriana Russell was not highly impressed with the thickness of the gallbladder yet she reports the periportal edema and concern for hepatitis also. There is definite concern of bilateral atelectasis on the CT scan of the lung Assurance and education All questions have been answered and all concerns have been addressed to patient's satisfaction. Status: Acute Attestations Medical Necessity Statement*: Requiring inpatient hospitalization for resuscitation and sepsis work-up Time Spent in Patient Care: (>than 50% of time spent in counselling and/or direct pt care on unit). Coding Level of Care Code Acute Applications Support Lead for [facility] Diagnoses Sepsis A41.9
--- NOTE | 2020-05-12 06:16 | MR_ITS ---
WS: [id number] MRCP (MAGNETIC RESONANCE CHOLANGIOPANCREATOGRAPHY) HISTORY: Elevated Bilirubin COMPARISON: Gallbladder ultrasound 05/10/[address] 05/12/2020 TECHNIQUE: Multiple sequences are performed to evaluate the intra and extrahepatic ducts. Common bile duct is normal size measuring 5 mm. No intrahepatic duct dilatation in the pancreatic robert t is normal size. Common bile duct tapers normally to the pancreatic head to the ampulla. Gallbladder is dilated with numerous stones. Diameter of the gallbladder is top normal at 4.0 cm. The re are several stones present and a stone in the gallbladder neck. On the prior ultrasound there was gallbladder wall thickening and findings suspicious for acute cholecystitis. The gallbladder wall is not as prominent today and there is decreased pericholecystic fluid. There is a small amount of fluid at the gallbladder fossa. Liver is enlarged with hepatic steatosis. There is marked fecal retention and dilatation of the visua lized colon. Fluid distended loops of small bowel are again present. MR/MR MRCP [id number] IMPRESSION: 1. Normal size common bile duct. No intrahepatic dilatation. 2. Gallbladder is top normal size with numerous stones. Tiny amount of adjacen t free fluid. Gallbladder wall is not thickened as noted on prior recent ultras ound. Suspect resolved acute cholecystitis. There is a stone at the neck of the gallbladder increasing the risk for CBD duct obstruction. There is a small stef unt of ascites adjacent to the liver and spleen. 3. Severe constipation. 4. Continued small bowel dilatation which appears chronic as previously descri bed. 5. Enlarged liver and hepatic steatosis.
--- NOTE | 2020-05-12 06:23 | PC.NURSE ---
NG INSERTION Patient tolerated NG insertion well. Dr. Cruz ordered for low intermittent suction once xray placement verified.
--- NOTE | 2020-05-12 06:50 | PC.NURSE ---
DR ROQUE ROUNDING Dr. Roque rounded on patient this AM about 0600. Physician put in order for MRCP and hepatitis panel. [employer] at bedside to draw DIC panel and nurse notified her of hepatitis panel also. Nurse spoke with Benita in lab and she stated that they could use blood in lab for hepatitis panel.
[2020-05-12 07:34] LABS: Fibrinogen 616 mg/dL (174-498); INR 1.36 (0.8-1.2); Partial Thromboplastin Time 40.6 SECONDS (23.9-36.7)
[2020-05-12 07:35] LABS: D Dimer 3.86 ug/mIFEU (0-0.59)
[2020-05-12 08:04] LABS: Hepatitis A Antibody IgM Non-Reactive (Nonreactive); Hepatitis B Core AB, Total Non-Reactive (Nonreactive); Hepatitis B Surface AB 115.8 (0-8.5); Hepatitis B Surface Antigen Non-Reactive (Nonreactive); Hepatitis C Virus Antibody Non-Reactive (Nonreactive)
[2020-05-12 08:21] LABS: Glucose Point of Care 72 mg/dL (70-110)
--- NOTE | 2020-05-12 08:51 | PM.PN ---
Subjective Subjective: Interval history: She is feeling a little tired. At night she was having some worse abdominal pain. She feels that pain is more at the lower abdomen when she sits up, but also upper abdomen when she takes deep breaths. Apart from that denies respiratory issues, no cough, not short of breath. No chest pain. She has had no vomiting. She has had some nausea, and NG tube had to be maintained to LIS. She states that she does feel hungry because she has not eaten for a while. She has had no bowel movement. Is not passing flatus. Discussion with RN has had no additional vaginal discharge. Vitals/I&O/Wt Last Vital Signs Temp 98.6 F 05/12/20 08:00 Pulse 121 H 05/12/20 08:00 Resp 16 05/12/20 08:00 BP 110/61 05/12/20 08:00 Pulse Ox 92 05/12/20 08:00 05/11/20 05/12/20 05/12/20 22:59 06:59 14:59 Intake Total 530 / 1190 620 / 1810 Output Total 600 / 1250 1150 / 2400 Balance -70 / -60 -530 / -590 Weight last 48 hrs Weight 84.776 kg Weight 77.111 kg Physical Exam Const: COMMON NORMALS: no acute distress, patient oriented x3 and alert ORIENTATION/CONSCIOUSNESS: Yes awake HENMT: COMMON NORMALS: oropharynx normal Neck/C-Spine: COMMON NORMALS: no JVD Resp: COMMON NORMALS: normal respiratory effort and clear to auscultation bilaterally AUSCULTATION: clear to auscultation bilaterally Cardio: COMMON NORMALS: no JVD, regular rhythm, S1 normal heart sound present, S2 normal heart sound present and No murmurs present (Cardio) RATE: tachycardic RHYTHM: regular rhythm HEART SOUNDS: S1 normal heart sound present and S2 normal heart sound present GI: COMMON NORMALS: non-tender AUSCULTATION: Yes Hypoactive bowel sounds present PALPATION: Yes Tenderness to palpation present (GI) (Mid to lower abdomen. ) Extremity: COMMON NORMALS: no joint enlargement and no pedal edema Neuro: COMMON NORMALS: patient oriented x3 and moves all extremities SENSORIUM/ORIENTATION: Yes alert Skin: COMMON NORMALS: no rashes or lesions noted GENERAL SKIN EXAM: no rashes or lesions noted Urinary Catheter Management^: Mckay: Cath Placed During This Visit: yes Reason for Continuing Indwelling Catheter: Acute Urinary Retention or Obstruction Urinary Catheter Date of Insertion: 05/11/20 Urinary Catheter Time of Insertion: 20:37 Data : 05/12/20 02:45 05/12/20 02:45 Micro: Microbiology 05/10/20 17:43 Urine Culture - Preliminary Urine Catheterized Gram Negative Rods 05/10/20 20:17 Blood Culture - Preliminary Blood NEGATIVE TO DATE 05/10/20 20:20 Blood Culture - Preliminary Blood NEGATIVE TO DATE A&P Assessment and plan (1) Sepsis: Persistent tachycardia, last night spiked fever up to 103. CT angiogram chest was performed to rule out embolic disease, none was seen. Atelectasis was noted on x-ray. She does report difficulty with inspiration causing worse abdominal pain. We will add incentive spirometer. Continue empiric antibiotics, although does not have symptoms of pneumonia. Noted minimal right pleural effusion. Does have noted suggestion of possible low-grade bowel obstruction which appears chronic. She has had 550 mL out from NG tube. Having some nausea. Feels abdomen is distended. Hypoactive bowel sounds. Does have noted free fluid in the abdomen. Incidentally noted 15 x 9 mm ring calcification along the right pelvic sidewall-extruded gallstone versus phlebolith. Discussed with surgery, who did not consider this to be gallstone as it is not matching and appears other stones in her gallbladder, also prescription of surgery with radiology there are no findings to suggest no fistulization of a gallstone. This was discussed with patient. Potentially this may be an incidental finding. Noted periportal edema in the liver, with possibility of hepatitis or cholecystitis. Hepatitis panel ordered earlier is not suggestive of acute viral hepatitis. AST and ALT are normal. T bili is up today to 1.3. Alk phos is about similar at 160. Discussed with surgery. Surgery has ordered MRCP to additionally evaluate and exclude biliary or hepatic process, possible cholangitis, choledocholithiasis. Minimal right hydronephrosis and mild upper right hydroureter, may be residual . She is growing gram-negative rods in urine as discussed with her. Hydroureter discussed, although suspect this may be resolving physiologic . I am reaching out to also discuss with urology. At this time continue Zosyn. Uterine enlargement. Prescription with nursing staff has had no additional vaginal discharge. Possible endometritis. Continue antibiotics. Reached out to touch base with gynecology who is currently in the procedure. Watch out for possible cardiomyopathy. All differential, assessment and plan discussed with patient. She had no additional questions or requests. Status: Acute (2) Cholecystitis: As above. Status: Acute (3) UTI (urinary tract infection): As above. Status: Acute (4) Hypoglycemia: Glucose yesterday not as low as 60, history of started on CLD, prior to that did receive D50, started on D5. Glucose still soft, and at this time prescription patient will maintain on bowel rest, will start D10 at 30 mL/h. Discussed with nursing staff. Continue to monitor glucose. Status: Acute Additional A&P Information Vaginal bleeding Gestational diabetes: I will keep her on D5 half-normal saline fluid resuscitation along sliding scale, Full code N.p.o. DVT prophylaxis SCDs are on, will avoid anticoagulation in case she would require surgical intervention Attestations Medical Necessity Statement*: Continue admission for assessment of management of sepsis. Coding Level of Care Code Acute Principal Security Architect for [facility] Diagnoses Sepsis A41.9 Cholecystitis K81.9 UTI (urinary tract infection) N39.0 Hypoglycemia E16.2
[2020-05-12] MEDS: dextrose 10% 1,000 ML 30 ML IV (09:24)
[2020-05-12] MEDS: sennosides-docusate Tablet 1 TAB PO (09:24)
--- NOTE | 2020-05-12 09:25 | PC.CHAP ---
Pastoral Care Encounter/Spiritual Assessment Type of Contact [] Declined corporate learning consultant visit [] Patient/Family/Request visit [] Outpatient visit [] Follow-up visit [] Physician referral [] Code/Alert [] Routine visit [] Staff referral [] Actively dying [] Patient sleeping [] Family support [] [] Out of room [] Palliative care [] [] Receiving care in room [] Pre-surgical visit [] Trauma [] Long length of stay [] ICU visit [] Other: Relational/Emotional Strength [] Patient feels connected with others/family/visitors/staff [] Distress [] Loneliness/isolation [] Abandonment Spirituality of Patient [] Person of Madeline [] Attends Episcopal of their Madeline [] Believes in Prayer [] Reads Bible or Rastafari materials [] There are Spiritual issues to be addressed Hotel Service Manager Interventions [x] Prayer [] Active listening [] Non-anxious presence [] Spiritual/emotional support [] Crisis/trauma care [] Spiritual counseling [] Bereavement support [] Provided bereavement packet [] Provided Bible/devotional materials [] Provided toy/stuffed animal, coloring book to patient or family member [] Provided Communion [] Anointing/[place] [] Salvation [x] Completed spiritual assessment [] Other: Impact on Illness or Injury [] Angry [] Fearful [] Anxious [] Often cries [] Exhaustion [] Unable to work [] Unable to attend sabianism [] Unable to walk/stand [] Unable to read [] Unable to drive [] Unable to eat/drink [] Unable to sleep [] Unable to be with family [] Patient intubated [] Other: Summary Time spent with patient
--- NOTE | 2020-05-12 09:26 | PC.CHAP ---
Pastoral Care Encounter/Spiritual Assessment Type of Contact [] Declined coach wirer visit [] Patient/Family/Request visit [] Outpatient visit [] Follow-up visit [] Physician referral [] Code/Alert [] Routine visit [] Staff referral [] Actively dying [] Patient sleeping [] Family support [] [] Out of room [] Palliative care [] [] Receiving care in room [] Pre-surgical visit [] Trauma [] Long length of stay [] ICU visit [] Other: Relational/Emotional Strength [] Patient feels connected with others/family/visitors/staff [] Distress [] Loneliness/isolation [] Abandonment Spirituality of Patient [] Person of Madeline [] Attends Uatsdin of their Madeline [] Believes in Prayer [] Reads Bible or Orthodox materials [] There are Spiritual issues to be addressed Casting Technician Interventions [x] Prayer [] Active listening [] Non-anxious presence [] Spiritual/emotional support [] Crisis/trauma care [] Spiritual counseling [] Bereavement support [] Provided bereavement packet [] Provided Bible/devotional materials [] Provided toy/stuffed animal, coloring book to patient or family member [] Provided Communion [] Anointing/[place] [] Salvation [x] Completed spiritual assessment [] Other: Impact on Illness or Injury [] Angry [] Fearful [] Anxious [] Often cries [] Exhaustion [] Unable to work [] Unable to attend tenriism [] Unable to walk/stand [] Unable to read [] Unable to drive [] Unable to eat/drink [] Unable to sleep [] Unable to be with family [] Patient intubated [] Other: Summary Time spent with patient
--- NOTE | 2020-05-12 10:12 | PC.NURSE ---
TRANSPORT HERE TO ASSIST PT TO MRI AT [facility]. NURSE WILL BE WITH PT.
[2020-05-12 12:09] LABS: Glucose Point of Care 66 mg/dL (70-110)
[2020-05-12 12:58] LABS: Glucose Point of Care 75 mg/dL (70-110)
--- NOTE | 2020-05-12 13:19 | ECG_ITS ---
[facility] Test Date: 2020-05-12 Pat Name: Suma Muñiz Department: Room: [facility] Gender: Female Vendor Quality Supervisor: : [id number] Requested By: Evans Cruz Order Number: [id number] Otoniel MD: Jannie Greenberg M.D. Measurements Intervals [place] Rate: 137 P: 24 DE: 96 QRS: 6 QRSD: 105 T: 37 QT: 286 QTc: 433 Interpretive Statements SINUS TACHYCARDIA WITH SHORT DE INTERVAL POSSIBLE ANTERIOR MYOCARDIAL INFARCTION [30 ms Q WAVE IN V3/V4, OR R < 0.2 mV IN V4], OF INDETERMINATE AGE Compared to ECG 05/10/2020 17:58:16 Myocardial infarct finding now present Electronically Signed On 05-12-2020 21:58:21 MEDICAL ADMINISTRATIVE ASSISTANT by Jannie Greenberg M.D. [id number]
[2020-05-12 13:54] LABS: Vancomycin Trough 9.4 ug/mL (10-15)
[2020-05-12] MEDS: GENTAMICIN IV (14:11)
[2020-05-12] MEDS: SODIUM CHLORIDE 0.9% IV (14:11)
[2020-05-12] MEDS: peg /e-lyte soln 4,000 mL Btl 4000 ML PO (14:43)
[2020-05-12 16:15] LABS: Glucose Point of Care 72 mg/dL (70-110)
[2020-05-12] MEDS: enoxaparin 40 mg/0.4 mL Syringe SUBCUT ×2 (18:54→19:16)
[2020-05-12 19:35] LABS: INR 1.36 (0.8-1.2); Partial Thromboplastin Time 34.9 SECONDS (23.9-36.7)
[2020-05-12 19:36] LABS: Fibrinogen 707 mg/dL (174-498)
[2020-05-12] MEDS: lurasidone 20 mg Tablet PO (21:19)
[2020-05-12] MEDS: bisacodyl 10 mg Supp PR (22:34)
[2020-05-12 23:39] LABS: SARS Covid-2 Antigen Negative (Negative)
[2020-05-13] VITALS (19 sets, daily range): BP systolic 109–122; BP diastolic 63–84; PULSE 100–120; RESP 15–26; TEMP 36.8–38.7; O2SAT 90–96
--- NOTE | 2020-05-13 00:15 | PC.NURSE ---
ASSUMING CARE Patient up in chair upon change of shift. Patient was tachypnic and tachycardic. Patient helped back to bed. Dr. Yeager called to ask how patient was doing and notifed of heart rate and respiratory rate. Patients rate and respiratory rate has decreased and patient is resting comfortably. Physician also notified of oxygen desaturation to 86% post dilaudid administration and patient sleeping. Physician ordered rapid covid test which came back negative. Physician also ordered a dulcolax suppository to assist the patient with a bm.
[2020-05-13] MEDS: piperacillin-tazobactam 3.375 GM in sodium chloride 0.9% (plus) 50 ML IV ×3 (00:46→18:09)
[2020-05-13] MEDS: acetaminophen 325 mg Tablet 650 MG PO ×3 (00:47→22:30)
[2020-05-13] MEDS: vancomycin 1,250 MG/250 ML PIGGYBACK 125 MG IV ×2 (00:47→15:42)
[2020-05-13] MEDS: HYDROmorphone 1 mg/mL INJ 1 mL 2 MG IVP ×4 (00:57→20:17)
[2020-05-13 01:05] LABS: Glucose Point of Care 95 mg/dL (70-110)
[2020-05-13 01:05] LABS: Glucose Point of Care 96 mg/dL (70-110)
[2020-05-13 03:35] LABS: Basophils # 0.2 10^3/uL (0.0-0.1); Basophils % 0.9 %; Hematocrit 32.7 % (37.0-47.0); Hemoglobin 10.6 g/dL (11.5-15.3); Lymphocytes # 0.8 10^3/uL (0.8-4.8); Lymphocytes % 4.5 %; Mean Corpuscular HGB Conc 32.4 g/dL (30.0-36.0); Mean Corpuscular Volume 95.6 fL (81-99); Mean Platelet Volume 9.9 fL (7.4-10.4); Monocytes # 1.3 10^3/uL (0.2-0.9); Monocytes % 7.5 %; Neutrophils # 14.87 10^3/uL (1.8-7.7); Neutrophils % 85.6 %; Nucleated Red Blood Cells % 0 %; Platelet Count 199 10^3/cmm (130-400); Red Blood Count 3.42 10^6/uL (4.1-5.3); Red Cell Distribution Width 13.3 % (12.1-15.1); White Blood Count 17.4 10^3/uL (4.0-10.0)
[2020-05-13 04:01] LABS: Alanine Aminotransferase 24 U/L (0-33); Albumin Level 1.8 g/dL (3.5-5.2); Alkaline Phosphatase 203 IU/L (35-105); Anion Gap 15.1 (5-19); Aspartate Amino Transferase 35 U/L (0-32); Blood Urea Nitrogen 17 mg/dL (6-20); Calcium 8.2 mg/dL (8.5-10.5); Carbon Dioxide 24 mmol/L (22-29); Chloride 101 mmol/L (98-107); Globulin 3.3 g/dL (1.3-4.6); Glomerular Filtration Rate 97.6 mL/min (90-130); Glucose 101 mg/dL (65-115); Osmolality Calculated 286 mOsm/kg (285-295); Potassium 3.1 mmol/L (3.5-5.1); Sodium 137 mmol/L (136-145); Total Bilirubin 2.5 mg/dL (0.15-1.2); Total Protein 5.1 g/dL (6.6-8.7)
--- NOTE | 2020-05-13 05:05 | PC.NURSE ---
REST Patient has rested well this shift and states that as far as pain it has been more bearable tonight.
--- NOTE | 2020-05-13 05:09 | PC.NURSE ---
VANC ADMINISTRATION Physician changed vancomycin rate to 125 mL/hour. Patient tolerated infusion well.
[2020-05-13 05:34] LABS: Glucose Point of Care 94 mg/dL (70-110)
[2020-05-13 05:41] LABS: Slide Review Slide Review Perform
--- NOTE | 2020-05-13 05:46 | PC.NURSE ---
I & O Patients NG tube was clamped upon change of shift due to patient drinking go lytely. Order from physician to hook back to LIS if patient appeared bloated and uncomfortable. Patients stomach visibly bloated, so hooked back to LIS. 2,100 mL dark green gastric contents out of NG this shift on LIS. Patient expressed that she was feeling less bloated and that pain was greatly decreased this morning. Patients NG clamped and 100 mL of go lytely slowly put into his NG tube to promote bowel movement. 775 mL urine output.
--- NOTE | 2020-05-13 06:02 | P.PN_ITS ---
Subjective Subjective: Interval history: Patient overall is about the same, she felt better at some point but when I asked her she said she does feel like when she came to the hospital. MRCP was done yesterday and showed 1. Normal size common bile duct. No intrahepatic dilatation. 2. Gallbladder is top normal size with numerous stones. Tiny amount of adjacent free fluid. Gallbladder wall is not thickened as noted on prior recent ultrasound. Suspect resolved acute cholecystitis. There is a stone at the neck of the gallbladder increasing the risk for CBD duct obstruction. There is a small amount of ascites adjacent to the liver and spleen. 3. Severe constipation. 4. Continued small bowel dilatation which appears chronic as previously described. 5. Enlarged liver and hepatic steatosis. I did discuss the MRCP findings with Dr. Fairchild because of the comment of the stone at the neck of the gallbladder and she did mention to me that this going to be an average risk not necessarily a high risk of migration to the CBD. GoLYTELY was started yesterday and patient got bloated and had more than 2 L out per NG when was hooked back to low intermittent wall suction, patient feels that she is going to have a bowel movement but not yet. Trending up leukocytosis and total bilirubin of 2.5 could represent hepatopathy Vitals/I&O/Wt Last Vital Signs Temp 98.2 F 05/13/20 01:50 Pulse 116 H 05/13/20 04:44 Resp 16 05/13/20 04:44 BP 112/74 05/13/20 04:44 Pulse Ox 94 05/13/20 04:44 05/12/20 05/12/20 05/13/20 14:59 22:59 06:59 Intake Total 452.208 / 452.208 810.5 / 1262.708 100 / 1362.708 Output Total 700 / 700 2875 / 3575 Balance 452.208 / 452.208 110.5 / 562.708 -2775 / -2212.292 Weight last 48 hrs Weight 186 lb 14.4 oz Physical Exam Narrative: EXAM NARRATIVE: EXAM NARRATIVE: Patient is conscious alert oriented X3 NG in place BMI 27 Head and neck examination PERRLA no masses no cervical lymphadenopathy no jaundice clinically detected. Cardiac examination audible S1-S2 no murmurs no gallops no arrhythmias Chest is clear bilateral,abscence of Rhonchi or wheezes,no surgical emphysema Abdomen maximal tenderness appreciated at the left lower quadrant yet overall the abdomen is less distended. Urinary Catheter Management^: Mckay: Cath Placed During This Visit: yes Reason for Continuing Indwelling Catheter: Acute Urinary Retention or Obstruction Urinary Catheter Date of Insertion: 05/11/20 Urinary Catheter Time of Insertion: 20:37 Data : 05/13/20 03:10 05/13/20 03:10 Micro: Microbiology 05/10/20 17:43 Urine Culture - Preliminary Urine Catheterized Gram Negative Rods A&P Assessment and plan (1) Sepsis: I would recommend at this point to administer milk and molasses enema if the patient is not responding to suppositories. In The form of 5 ounces of milk mixed with 5 ounces of molasses warm and administer to effect. We will continue to follow on the patient's clinical progress I do not see an urgent indication for gallbladder surgery at this point, if continues to have elevated total bilirubin I would repeat an ultrasound of liver and gallbladder to rule out stone in the CBD. And I would recommend to obtain direct bilirubin for comparison. We will order lactic acid serum level Correction of hypokalemia per hospitalist service Still continue to be concerned about an underlying endometritis,also am concerned about patient's nutrition, once patient starts to have bowel movements, emphasis on protein shakes p.o. Assurance and education All questions have been answered and all concerns have been addressed to patient's satisfaction. Status: Acute Attestations Medical Necessity Statement*: Ongoing inpatient hospitalization for critical care management Time Spent in Patient Care: (>than 50% of time spent in counselling and/or direct pt care on unit) . Coding Level of Care Code Acute Filler Blender for [facility] Fwd Diagnoses Sepsis A41.9
[2020-05-13] MEDS: enoxaparin 80 mg/0.8 mL Syringe 85 MG SUBCUT (06:30)
--- NOTE | 2020-05-13 06:32 | PC.NURSE ---
SHER Wright requested sher assessment be done on patient. Done this AM and patient has a 21.2% change in SVI.
[2020-05-13] MEDS: ondansetron 2 mg/ML SDV 2 mL 4 MG IVP (06:52)
[2020-05-13 07:14] LABS: Lactate (Lactic Acid level) 0.9 mmol/L (0.5-2.2)
[2020-05-13] MEDS: lactated ringers 500 ML 999 ML IV (08:14)
[2020-05-13] MEDS: pantoprazole 40 mg SDV IVP (08:15)
[2020-05-13 08:18] LABS: Magnesium 1.8 mg/dL (1.7-2.3)
[2020-05-13] MEDS: sennosides-docusate Tablet 1 TAB PO (08:19)
--- NOTE | 2020-05-13 09:45 | PC.NURSE ---
Attempt to express pt's breastmilk with pt's handheld breastpump multiple times unsuccessfully. Pump does not work adequately.
[2020-05-13 09:52] LABS: Glucose Point of Care 111 mg/dL (70-110)
--- NOTE | 2020-05-13 10:00 | PC.NURSE ---
Health Department contacted to assist pt with breast pump.
--- NOTE | 2020-05-13 10:02 | PM.PN ---
Subjective Subjective: Interval history: She is feeling perhaps a tiny bit better. Still with abdominal pain. Abdomen is distended. Passed a minimal amount of gas this morning. Vitals/I&O/Wt Last Vital Signs Temp 98.5 F 05/13/20 08:00 Pulse 109 H 05/13/20 08:00 Resp 20 H 05/13/20 08:15 BP 122/84 05/13/20 08:00 Pulse Ox 94 05/13/20 08:15 05/12/20 05/13/20 05/13/20 22:59 06:59 14:59 Intake Total 810.5 / 1262.708 400 / 1662.708 0 / 0 Output Total 700 / 700 2875 / 3575 Balance 110.5 / 562.708 -2475 / -1912.292 0 / 0 Weight last 48 hrs Weight 81.284 kg Weight 84.776 kg Physical Exam Const: COMMON NORMALS: no acute distress, patient oriented x3 and alert ORIENTATION/CONSCIOUSNESS: Yes awake OTHER: somewhat flushed appearance HENMT: COMMON NORMALS: oropharynx normal Neck/C-Spine: COMMON NORMALS: no JVD Resp: COMMON NORMALS: normal respiratory effort and clear to auscultation bilaterally AUSCULTATION: clear to auscultation bilaterally Cardio: COMMON NORMALS: no JVD, regular rhythm, S1 normal heart sound present, S2 normal heart sound present and No murmurs present (Cardio) RATE: tachycardic RHYTHM: regular rhythm HEART SOUNDS: S1 normal heart sound present and S2 normal heart sound present GI: COMMON NORMALS: non-tender INSPECTION: Yes abdominal distension AUSCULTATION: Yes Hypoactive bowel sounds present PALPATION: Yes Tenderness to palpation present (GI) (Mid to lower abdomen. ) Extremity: COMMON NORMALS: no joint enlargement and no pedal edema Neuro: COMMON NORMALS: patient oriented x3 and moves all extremities SENSORIUM/ORIENTATION: Yes alert Skin: COMMON NORMALS: no rashes or lesions noted GENERAL SKIN EXAM: no rashes or lesions noted Urinary Catheter Management^: Mckay: Cath Placed During This Visit: yes Reason for Continuing Indwelling Catheter: Acute Urinary Retention or Obstruction Urinary Catheter Date of Insertion: 05/11/20 Urinary Catheter Time of Insertion: 20:37 Data : 05/13/20 03:10 05/13/20 03:10 Micro: Microbiology 11/15/20 17:43 Urine Culture - Preliminary Urine Catheterized Gram Negative Rods A&P Assessment and plan (1) Sepsis: Subjectively feeling a tiny bit better. Leukocytosis higher, but tachycardia with some improvement. Fluid responsive on SVI. Ordered LR bolus. Continue Empiric antibiotics w Zosyn, gentamicin for endometritis, UTI. For now cont vancomycin, if improving may dc. Full anticoagulation due to persistent fevers with endometritis with possible thrombophlebitis. Tbili higher today. Surgery assessment reviewed. Watch out for possible cardiomyopathy. Status: Acute (2) Cholecystitis: As above. Status: Acute (3) UTI (urinary tract infection): As above. Was noted to have some urinary tension on night 05/12. Mckay catheter was placed. Status: Acute (4) Hypoglycemia: With some improvement. Continue D10. Resume diet as soon as tolerating. Status: Acute (5) Obstipation: MOM enema. Appears to have low-grade chronic small bowel obstruction. Status: Acute Additional A&P Information Cholelithiasis with also stone noted in gallbladder neck at risk of impaction Atelectasis: Incentive spirometry. Minimal right pleural effusion Minimal right hydronephrosis Vaginal bleeding Gestational diabetes: I will keep her on D5 half-normal saline fluid resuscitation along sliding scale, Full code N.p.o. Attestations Medical Necessity Statement*: Continue admission for assessment management of sepsis. Coding Level of Care Code Acute Figurine Maker for [facility] Fw Diagnoses Sepsis A41.9 Cholecystitis K81.9 UTI (urinary tract infection) N39.0 Hypoglycemia E16.2 Obstipation K59.00
[2020-05-13] MEDS: magnesium sulfate premix 2 GM/50 ML PIGGYBACK IV (11:09)
[2020-05-13] MEDS: lidocaine 1% 5 ML in potassium chloride premix 100 ML 50 ML IV (11:37)
[2020-05-13 11:57] LABS: Glucose Point of Care 101 mg/dL (70-110)
[2020-05-13] MEDS: SODIUM CHLORIDE 0.9% IV (13:35)
[2020-05-13] MEDS: GENTAMICIN IV (13:35)
--- NOTE | 2020-05-13 13:36 | PC.NURSE ---
Gentamicin administered slightly late d/t Mag, Krider and Zosyn administration in other lines. Pt stated she can't handle another IV . Administered when Zosyn completed. Pt very pleasant.
--- NOTE | 2020-05-13 16:30 | PC.NURSE ---
Pt's Vanc started at new lower rate. 50 mls into infusion, pt became extremely flushed, complained of severe throat pain, upper abdominal pain versus constant lower abdominal pain, mid to lower back pain, and temp increased to 100.8 axillary. Vanc stopped. Tylenol and Dilaudid administered per order. Dr Wright notified. Orders received.
--- NOTE | 2020-05-13 16:32 | CTR_ITS ---
PROCEDURE INFORMATION: Exam: CT Thoracic Spine Without Contrast Exam date and time: 05/13/2020 5:14 PM Age: 30 years old Clinical indication: Pain in thoracic spine; Patient HX: Post 10 days; Additional info: Pain, sepsis TECHNIQUE: Imaging protocol: Computed tomography images of the thoracic spine without contrast. Radiation optimization: All CT scans at this facility use at least one of these dose optimization techniques: automated exposure control; mA and/or kV adjustment per patient size (includes targeted exams where dose is matched to clinical indication); or iterative reconstruction. COMPARISON: No relevant prior studies available. RADIATION DOSE METRICS: Total DLP (mGy-cm): 1537.01 FINDINGS: Tubes, catheters and devices: NG tube extends into the stomach. Vertebrae: No acute fracture. Normal alignment. T1-T2: No significant disc protrusion. No severe spinal canal stenosis. No significant neural foraminal narrowing. T2-T3: No significant disc protrusion. No severe spinal canal stenosis. No significant neural foraminal narrowing. T3-T4: No significant disc protrusion. No severe spinal canal stenosis. No significant neural foraminal narrowing. T4-T5: No significant disc protrusion. No severe spinal canal stenosis. No significant neural foraminal narrowing. T5-T6: No significant disc protrusion. No severe spinal canal stenosis. No significant neural foraminal narrowing. T6-T7: No significant disc protrusion. No severe spinal canal stenosis. No significant neural foraminal narrowing. T7-T8: No significant disc protrusion. No severe spinal canal stenosis. No significant neural foraminal narrowing. T8-T9: No significant disc protrusion. No severe spinal canal stenosis. No significant neural foraminal narrowing. T9-T10: No significant disc protrusion. No severe spinal canal stenosis. No significant neural foraminal narrowing. T10-T11: No significant disc protrusion. No severe spinal canal stenosis. No significant neural foraminal narrowing. T11-T12: No significant disc protrusion. No severe spinal canal stenosis. No significant neural foraminal narrowing. T12-L1: No significant disc protrusion. No severe spinal canal stenosis. No significant neural foraminal narrowing. Lungs: Dependent atelectasis in both lower lobes. Small right and trace left pleural effusions. CT/CT thoracic spin wo con* [id number] IMPRESSION: 1. No acute skeletal abnormality. 2. Small right and trace left pleural effusions with mild atelectasis. Radiation Dose CTDIVOL = (mGy): DLP = 1537.01 (mGy-cm)
--- NOTE | 2020-05-13 16:32 | CTR_ITS ---
PROCEDURE INFORMATION: Exam: CT Lumbar Spine Without Contrast Exam date and time: 05/13/2020 5:14 PM Age: 30 years old Clinical indication: Low back pain; Patient HX: Post 10 days; Additional info: Pain, sepsis TECHNIQUE: Imaging protocol: Computed tomography images of the lumbar spine without contrast. Radiation optimization: All CT scans at this facility use at least one of these dose optimization techniques: automated exposure control; mA and/or kV adjustment per patient size (includes targeted exams where dose is matched to clinical indication); or iterative reconstruction. COMPARISON: No relevant prior studies available. RADIATION DOSE METRICS: Total DLP (mGy-cm): 2461.61 FINDINGS: Vertebrae: No acute fracture. Normal alignment. L1-L2: No significant disc protrusion. No severe spinal canal stenosis. No significant neural foraminal narrowing. L2-L3: No significant disc protrusion. No spinal canal stenosis. No neural foraminal narrowing. L3-L4: No significant disc protrusion. No severe spinal canal stenosis. No significant neural foraminal narrowing. L4-L5: No significant disc protrusion. No severe spinal canal stenosis. No significant neural foraminal narrowing. L5-S1: No significant disc protrusion. No severe spinal canal stenosis. No significant neural foraminal narrowing. Reproductive: Partially visualized prominent uterus, consistent with state. Soft tissues: Unremarkable. Other findings: Mild presacral soft tissue edema. CT/CT lumbar spine wo con* [id number] IMPRESSION: No acute finding. Radiation Dose CTDIVOL = (mGy): DLP = 2461.61 (mGy-cm)
--- NOTE | 2020-05-13 18:00 | PC.NURSE ---
Health Department loaned pt breastpump for duration of HOSPITAL STAY ONLY. Pump NOT to be sent home with patient. Educated pt how to use breastpump. Nurse assisted pump and expressed approximately 0.75 oz out of each breast. Called OB and explained situation and asked if hearing consultant could come down and assist patient this shift. OB to bring something to assist pt to pump privately. Pt unable to pump self at that time d/t discomfort of abdomen and positioning with arms/IV's.
[2020-05-13] MEDS: enoxaparin 80 mg/0.8 mL Syringe SUBCUT (18:10)
[2020-05-13] MEDS: lanolin oint 7 gm 1 APPLIC TOPICAL (20:53)
[2020-05-13] MEDS: lurasidone 20 mg Tablet PO (21:25)
[2020-05-14] VITALS (28 sets, daily range): BP systolic 105–121; BP diastolic 62–82; PULSE 76–105; RESP 4–23; TEMP 36.9–37.5; O2SAT 89–96
[2020-05-14] MEDS: piperacillin-tazobactam 3.375 GM in sodium chloride 0.9% (plus) 50 ML IV ×3 (01:03→16:38)
[2020-05-14] MEDS: HYDROmorphone 1 mg/mL INJ 1 mL 2 MG IVP ×4 (01:40→16:38)
[2020-05-14] MEDS: dextrose 10% 1,000 ML 30 ML IV (03:36)
[2020-05-14 03:38] LABS: Basophils # 0.1 10^3/uL (0.0-0.1); Basophils % 0.8 %; Eosinophils % 0.1 %; Hematocrit 31.9 % (37.0-47.0); Hemoglobin 10.1 g/dL (11.5-15.3); Lymphocytes # 0.9 10^3/uL (0.8-4.8); Mean Corpuscular HGB Conc 31.7 g/dL (30.0-36.0); Mean Corpuscular Volume 97.9 fL (81-99); Mean Platelet Volume 9.8 fL (7.4-10.4); Monocytes % 6.9 %; Neutrophils # 12.83 10^3/uL (1.8-7.7); Neutrophils % 84.8 %; Nucleated Red Blood Cells % 0 %; Platelet Count 198 10^3/cmm (130-400); Red Blood Count 3.26 10^6/uL (4.1-5.3); Red Cell Distribution Width 13.4 % (12.1-15.1); White Blood Count 15.1 10^3/uL (4.0-10.0)
[2020-05-14 04:10] LABS: Alanine Aminotransferase 24 U/L (0-33); Albumin Level 1.7 g/dL (3.5-5.2); Alkaline Phosphatase 147 IU/L (35-105); Anion Gap 14.2 (5-19); Aspartate Amino Transferase 27 U/L (0-32); Blood Urea Nitrogen 19 mg/dL (6-20); Carbon Dioxide 25 mmol/L (22-29); Chloride 102 mmol/L (98-107); Creatinine Clr Calc Pharmacy 148.9984; Globulin 3.5 g/dL (1.3-4.6); Glomerular Filtration Rate 116.6 mL/min (90-130); Glucose 103 mg/dL (65-115); Osmolality Calculated 289 mOsm/kg (285-295); Potassium 3.2 mmol/L (3.5-5.1); Sodium 138 mmol/L (136-145); Total Bilirubin 2.5 mg/dL (0.15-1.2); Total Protein 5.2 g/dL (6.6-8.7)
[2020-05-14 05:17] LABS: Magnesium 1.7 mg/dL (1.7-2.3)
--- NOTE | 2020-05-14 06:02 | PC.NURSE ---
MD Trice phoned to check on patient this AM. Updates were given on patient condition, and on this morning's blood work. No new orders at this time.
--- NOTE | 2020-05-14 07:40 | P.PN_ITS ---
Subjective Subjective: Interval history: Patient responded to GoLYTELY and had 2 large bowel movements and another bowel movement at shift change in the morning today. She did report that she passes gas. She continues to complain of pain at the lower abdomen particularly at the right and left lower quadrants. No reporting of vaginal discharge yet the urine seem to be concentrated. But overall she does feel better after having bowel movements. Trending down and leukocytosis and total bilirubin stayed at 2.5 without worsening. Lactic acid came back 0.9. No acute findings on thoracic or lumbar spines Vitals/I&O/Wt Last Vital Signs Temp 98.5 F 05/14/20 04:00 Pulse 102 H 05/14/20 04:00 Resp 15 05/14/20 04:00 BP 115/78 05/14/20 04:00 Pulse Ox 90 05/14/20 04:00 05/13/20 05/14/20 05/14/20 22:59 06:59 14:59 Intake Total 760.5 / 1485.5 1008 / 2493.5 Output Total 1775 / 1775 2450 / 4225 450 / 450 Balance -1014.5 / -289.5 -1442 / -1731.5 -450 / -450 Weight last 48 hrs Weight 179 lb 4 oz Weight 179 lb 3.2 oz Physical Exam Narrative: EXAM NARRATIVE: Patient is conscious alert oriented X3 NG in place BMI 27 Head and neck examination PERRLA no masses no cervical lymphadenopathy no jaundice clinically detected. NG in place Abdomen maximal tenderness appreciated at bilateral lower quadrants Urinary Catheter Management^: Mckay: Cath Placed During This Visit: yes Reason for Continuing Indwelling Catheter: Accurate Measurement of Urinary Output in Critically Ill Patients Urinary Catheter Date of Insertion: 05/11/20 Urinary Catheter Time of Insertion: 20:37 Data : 05/14/20 03:20 05/14/20 03:20 Micro: Microbiology 05/10/20 17:43 Urine Culture - Final Urine Catheterized Escherichia coli A&P Assessment and plan (1) Sepsis: From my end patient can start to have some water and Chloraseptic spray to the back of the throat. If patient continues to do appropriately well through the day we can clamp NG for 2 hours and check residuals if less than 200 can DC NG and start clear liquid diet.. Close monitoring and repeated physical examination Encourage ambulation with physical therapy assistance Incentive spirometer every hour Assurance and education All questions have been answered and all concerns have been addressed to patient's satisfaction. Status: Acute Attestations Medical Necessity Statement*: Inpatient admission for critical care Time Spent in Patient Care: (>than 50% of time spent in counselling and/or direct pt care on unit) . Coding Level of Care Code Acute Electric Meter Repairer Helper for [facility] Fwd Diagnoses Sepsis A41.9
[2020-05-14] MEDS: enoxaparin 80 mg/0.8 mL Syringe SUBCUT ×2 (07:45→20:13)
[2020-05-14 08:08] LABS: Glucose Point of Care 109 mg/dL (70-110)
[2020-05-14] MEDS: magnesium sulfate premix 2 GM/50 ML PIGGYBACK IV (09:04)
[2020-05-14] MEDS: lidocaine 1% 5 ML in potassium chloride premix 100 ML 50 ML IV (09:05)
[2020-05-14] MEDS: pantoprazole 40 mg SDV IVP (09:07)
--- NOTE | 2020-05-14 09:18 | PM.PN ---
Subjective Subjective: Interval history: She says she was having more abdominal pain this morning, although says that some of her symptoms may been related to staying in bed for too long. Currently she is doing little bit better. She is willing to try to sit up in chair, but wants to do it later, not now. Vitals/I&O/Wt Last Vital Signs Temp 98.5 F 05/14/20 04:00 Pulse 104 H 05/14/20 08:20 Resp 22 H 05/14/20 07:44 BP 115/78 05/14/20 04:00 Pulse Ox 92 05/14/20 08:20 05/13/20 05/14/20 05/14/20 22:59 06:59 14:59 Intake Total 760.5 / 1485.5 1008 / 2493.5 Output Total 1775 / 1775 2450 / 4225 450 / 450 Balance -1014.5 / -289.5 -1442 / -1731.5 -450 / -450 Weight last 48 hrs Weight 81.306 kg Weight 81.284 kg Physical Exam Const: COMMON NORMALS: no acute distress, patient oriented x3 and alert ORIENTATION/CONSCIOUSNESS: Yes awake HENMT: COMMON NORMALS: oropharynx normal Neck/C-Spine: COMMON NORMALS: no JVD Resp: COMMON NORMALS: normal respiratory effort and clear to auscultation bilaterally AUSCULTATION: clear to auscultation bilaterally Cardio: COMMON NORMALS: no JVD, regular rhythm, S1 normal heart sound present, S2 normal heart sound present and No murmurs present (Cardio) RATE: tachycardic RHYTHM: regular rhythm HEART SOUNDS: S1 normal heart sound present and S2 normal heart sound present GI: COMMON NORMALS: non-tender INSPECTION: Yes abdominal distension AUSCULTATION: Yes normoactive bowel sounds PALPATION: Yes Tenderness to palpation present (GI) (Mid to lower abdomen. ) Extremity: COMMON NORMALS: no joint enlargement and no pedal edema Neuro: COMMON NORMALS: patient oriented x3 and moves all extremities SENSORIUM/ORIENTATION: Yes alert Skin: COMMON NORMALS: no rashes or lesions noted GENERAL SKIN EXAM: no rashes or lesions noted Urinary Catheter Management^: Mckay: Cath Placed During This Visit: yes Reason for Continuing Indwelling Catheter: Accurate Measurement of Urinary Output in Critically Ill Patients Urinary Catheter Date of Insertion: 05/11/20 Urinary Catheter Time of Insertion: 20:37 Data : 05/14/20 03:20 05/14/20 03:20 Micro: Microbiology 05/10/20 17:43 Urine Culture - Final Urine Catheterized Escherichia coli A&P Assessment and plan (1) Sepsis: Subjectively appears to be improving, leukocytosis is decreasing, tachycardia gradual improvement, currently around 100-105. So far afebrile since last night, 4 PM 100.8 Fahrenheit. Continue Empiric antibiotics for now w Zosyn, gentamicin for endometritis, UTI. Stopped vancomycin. Full anticoagulation due to persistent fevers with endometritis with possible thrombophlebitis. Tbili appears stabilized at 2.5. Was seen by surgery. Status: Acute (2) Cholecystitis: As above. Status: Acute (3) UTI (urinary tract infection): As above. Mckay catheter due to retention 05/12. Status: Acute (4) Hypoglycemia: With some improvement. Continue D10 until can resume some oral diet. Status: Acute (5) Obstipation: Partial small bowel obstruction, obstipation. Had few small bowel movements this morning. Currently still copious amount of gastric drainage. Continue NG to LIS. Low-grade chronic small bowel obstruction. Status: Acute Additional A&P Information Cholelithiasis with also stone noted in gallbladder neck at risk of impaction Atelectasis: Incentive spirometry. Minimal right pleural effusion Minimal right hydronephrosis Vaginal bleeding Gestational diabetes: I will keep her on D5 half-normal saline fluid resuscitation along sliding scale, Full code N.p.o. Attestations Medical Necessity Statement*: Continue admission for assessment management of sepsis, partial SBO. Coding Level of Care Code Acute Dynamic Etching Processor for [facility] Fwd Exam Comprehensive Diagnoses Sepsis A41.9 Cholecystitis K81.9 UTI (urinary tract infection) N39.0 Hypoglycemia E16.2 Obstipation K59.00
[2020-05-14 11:19] LABS: Glucose Point of Care 103 mg/dL (70-110)
[2020-05-14 11:25] LABS: Gentamicin Trough 0.5 ug/mL (0.0-8.0)
[2020-05-14] MEDS: SODIUM CHLORIDE 0.9% IV (11:50)
[2020-05-14] MEDS: GENTAMICIN IV (11:50)
[2020-05-14] MEDS: phenol oral Spray 177 mL 3 SPRAY MUCOUS MEM (13:42)
[2020-05-14 17:03] LABS: Glucose Point of Care 92 mg/dL (70-110)
[2020-05-14 18:54] LABS: Glucose Point of Care 96 mg/dL (70-110)
[2020-05-14 18:54] LABS: Glucose Point of Care 94 mg/dL (70-110)
[2020-05-14 18:54] LABS: Glucose Point of Care 83 mg/dL (70-110)
[2020-05-14] MEDS: lurasidone 20 mg Tablet PO (21:12)
[2020-05-14] MEDS: acetaminophen 325 mg Tablet 650 MG PO (21:21)
--- NOTE | 2020-05-14 21:58 | PC.NURSE ---
first assessment Able to get to [facility] with standby to 1 assist, C/O abdominal pain managed with PRN Tylenol at this time, Abdomen tender, distended and soft BS x4, AO x4, speech clear, follows commands and answers questions appropriately
[2020-05-15] VITALS (20 sets, daily range): BP systolic 99–129; BP diastolic 64–75; PULSE 55–78; RESP 0–27; TEMP 36.5–36.8; O2SAT 89–100
[2020-05-15] MEDS: piperacillin-tazobactam 3.375 GM in sodium chloride 0.9% (plus) 50 ML IV ×2 (00:19→07:50)
[2020-05-15] MEDS: ondansetron 2 mg/ML SDV 2 mL 4 MG IVP ×2 (03:44→14:31)
[2020-05-15 04:59] LABS: Basophils # 0.1 10^3/uL (0.0-0.1); Basophils % 0.5 %; Eosinophils % 0.2 %; Hemoglobin 9.4 g/dL (11.5-15.3); Lymphocytes # 1.3 10^3/uL (0.8-4.8); Lymphocytes % 8.7 %; Mean Corpuscular HGB Conc 32.4 g/dL (30.0-36.0); Mean Corpuscular Hemoglobin 31.5 pg (28.0-34.0); Mean Corpuscular Volume 97.3 fL (81-99); Mean Platelet Volume 10.2 fL (7.4-10.4); Monocytes # 0.7 10^3/uL (0.2-0.9); Monocytes % 5.1 %; Neutrophils # 12.13 10^3/uL (1.8-7.7); Neutrophils % 83.9 %; Nucleated Red Blood Cells % 0 %; Platelet Count 188 10^3/cmm (130-400); Red Blood Count 2.98 10^6/uL (4.1-5.3); Red Cell Distribution Width 13.4 % (12.1-15.1); White Blood Count 14.5 10^3/uL (4.0-10.0)
[2020-05-15 05:49] LABS: Alanine Aminotransferase 17 U/L (0-33); Albumin Level 1.8 g/dL (3.5-5.2); Alkaline Phosphatase 132 IU/L (35-105); Anion Gap 11.9 (5-19); Aspartate Amino Transferase 19 U/L (0-32); Blood Urea Nitrogen 15 mg/dL (6-20); Calcium 7.5 mg/dL (8.5-10.5); Carbon Dioxide 26 mmol/L (22-29); Chloride 101 mmol/L (98-107); Glomerular Filtration Rate 186.2 mL/min (90-130); Glucose 117 mg/dL (65-115); Osmolality Calculated 284 mOsm/kg (285-295); Sodium 136 mmol/L (136-145); Total Bilirubin 1.5 mg/dL (0.15-1.2); Total Protein 4.8 g/dL (6.6-8.7)
--- NOTE | 2020-05-15 06:10 | PC.NURSE ---
Bladder scan C/O burning and pressure inside urethra, Foly flushed with no resistance and no increase in pain, Bladder scanned 54ml
[2020-05-15 06:15] LABS: Potassium 2.9 mmol/L (3.5-5.1)
--- NOTE | 2020-05-15 06:21 | PC.NURSE ---
N.O. Critical K reported to Dr. Cruz, order given for K Kvng 80 mEq
--- NOTE | 2020-05-15 06:43 | PM.PN ---
Subjective Subjective: Interval history: Patient overall feels a whole lot better today and had minimal at her NG after being clamped for 4-5 hours and her residual was about 100 mL. Continues to pass gas and having bowel movements. Otherwise no acute events overnight. Normalization of heart rate and appropriate vital signs Total bilirubin of 1.5 leukocytosis trending down Vitals/I&O/Wt Last Vital Signs Temp 97.7 F 05/15/20 04:00 Pulse 64 05/15/20 06:00 Resp 14 05/15/20 06:00 BP 100/65 05/15/20 06:00 Pulse Ox 94 05/15/20 06:00 05/14/20 05/14/20 05/15/20 14:59 22:59 06:59 Intake Total 415.5 / 415.5 250 / 665.5 Output Total 750 / 750 1550 / 2300 400 / 2700 Balance -334.5 / -334.5 -1300 / -1634.5 -400 / -2034.5 Weight last 48 hrs Weight 177 lb 11.2 oz Weight 179 lb 4 oz Physical Exam Narrative: EXAM NARRATIVE: Patient is conscious alert oriented X3 NG in place BMI 27 Head and neck examination PERRLA no masses no cervical lymphadenopathy no jaundice clinically detected. NG in place Abdomen much less tenderness appreciated at bilateral lower quadrants Urinary Catheter Management^: Mckay: Cath Placed During This Visit: yes Reason for Continuing Indwelling Catheter: Accurate Measurement of Urinary Output in Critically Ill Patients Urinary Catheter Date of Insertion: 05/11/20 Urinary Catheter Time of Insertion: 20:37 Data : 05/15/20 04:45 05/15/20 04:45 A&P Assessment and plan (1) Sepsis: Resolving sepsis and from surgical standpoint of view will DC NG tube and start the patient slowly on clear liquid diet and if she continues to do well I would encourage strongly to have protein shakes with each meal. Encourage ambulation with physical therapy assistance Incentive spirometer every hour Assurance and education All questions have been answered and all concerns have been addressed to patient's satisfaction. Status: Acute Attestations Medical Necessity Statement*: Inpatient hospitalization for medical care Time Spent in Patient Care: (>than 50% of time spent in counselling and/or direct pt care on unit). Coding Level of Care Code Acute Diamond Sizer And Sorter for Ern[facility] Diagnoses Sepsis A41.9
[2020-05-15] MEDS: enoxaparin 80 mg/0.8 mL Syringe SUBCUT (06:49)
[2020-05-15] MEDS: lidocaine 1% 5 ML in potassium chloride premix 100 ML 25 ML IV ×2 (06:49→13:40)
--- NOTE | 2020-05-15 07:10 | PC.NURSE ---
NG tube removed by Dr. Donis
--- NOTE | 2020-05-15 08:59 | P.PN_ITS ---
Subjective Subjective: Interval history: She appears comfortable in bed, napping, wakes up briefly. When asked, replies she is doing a bit better, is having cramping in her abdomen, severity of the pain is definitely less. Confirms that she has had a few bowel movements this morning. Surgery to cut NG tube. She will be trying a bit of clears today. Vitals/I&O/Wt Last Vital Signs Temp 97.7 F 05/15/20 04:00 Pulse 64 05/15/20 06:00 Resp 14 05/15/20 06:00 BP 100/65 05/15/20 06:00 Pulse Ox 94 05/15/20 06:00 05/14/20 05/15/20 05/15/20 22:59 06:59 14:59 Intake Total 250 / 665.5 50 / 50 Output Total 1550 / 2300 400 / 2700 Balance -1300 / -1634.5 -400 / -2034.5 50 / 50 Weight last 48 hrs Weight 80.603 kg Weight 81.306 kg Physical Exam Const: COMMON NORMALS: no acute distress and patient oriented x3 GENERAL APPEARANCE: cooperative and comfortable HENMT: COMMON NORMALS: oropharynx normal Neck/C-Spine: COMMON NORMALS: no JVD Resp: COMMON NORMALS: normal respiratory effort and clear to auscultation bilaterally AUSCULTATION: clear to auscultation bilaterally Cardio: COMMON NORMALS: no JVD, regular rhythm, S1 normal heart sound present, S2 normal heart sound present and No murmurs present (Cardio) RATE: not tachycardic RHYTHM: regular rhythm HEART SOUNDS: S1 normal heart sound present and S2 normal heart sound present GI: COMMON NORMALS: non-tender INSPECTION: Yes abdominal distension (less) AUSCULTATION: Yes normoactive bowel sounds PALPATION: Yes Tenderness to palpation present (GI) (Mid to lower abdomen. ) Extremity: COMMON NORMALS: no joint enlargement and no pedal edema Neuro: COMMON NORMALS: patient oriented x3 and moves all extremities Skin: COMMON NORMALS: no rashes or lesions noted GENERAL SKIN EXAM: no rashes or lesions noted Urinary Catheter Management^: Mckay: Cath Placed During This Visit: yes Reason for Continuing Indwelling Catheter: Accurate Measurement of Urinary Output in Critically Ill Patients Urinary Catheter Date of Insertion: 05/11/20 Urinary Catheter Time of Insertion: 20:37 Data : 05/15/20 04:45 05/15/20 04:45 A&P Assessment and plan (1) Sepsis: Significant improvement is noted, last fever 100.8 on 05/13. Yesterday afternoon around 3 PM 99.5 temp. leukocytosis is improving. Subjectively she is feeling better, although is still having cramping in her abdomen. Did have some bowel movements. T bili is down to 1.5. Discussed with gynecology as well as with her. Discontinuing Zosyn given not the best RAY. Gynecology okay with switching from gentamicin to third- generation cephalosporin. Discussed with her. Prescription with [employer] she has not been more than 24 hours afebrile, so may switch from therapeutic anticoagulation to prophylactic dosing without need to continue anticoagulation after discharge. NG tube has been removed by surgery. She is trying some clears today. If does well this morning, may transfer out of ICU. Status: Acute (2) UTI (urinary tract infection): As above. Mckay catheter due to retention 05/12. Status: Acute (3) Obstipation: Partial small bowel obstruction, obstipation. Had few small bowel mo vements this morning. Currently still copious amount of gastric drainage. Continue NG to LIS. Low-grade chronic small bowel obstruction. Status: Acute (4) Hypoglycemia: Improving. She is resuming trial of clears today. Reduce D10 to 15 mL/h and discontinue if tolerating diet and glucose continues to improve. Status: Acute (5) Cholecystitis: At this time not suspected. Has cholelithiasis which will need outpatient follow-up. Status: Acute Additional A&P Information Cholelithiasis with also stone noted in gallbladder neck at risk of impaction Atelectasis: Incentive spirometry. Minimal right pleural effusion Minimal right hydronephrosis Vaginal bleeding Gestational diabetes Full code Attestations Medical Necessity Statement*: Continue admission for assessment management of improving sepsis, endometritis, UTI, possible pelvic thrombophlebitis, obstipation, partial small bowel obstruction, hypoglycemia, cholelithiasis. Coding Level of Care Code Acute Chain Saw Operator for g Fwd Diagnoses Sepsis A41.9 UTI (urinary tract infection) N39.0 Obstipation K59.00 Hypoglycemia E16.2 Cholecystitis K81.9
[2020-05-15] MEDS: cefTRIAXone 1,000 MG in sodium chloride 0.9% (plus) 50 ML 100 MG IV (11:02)
[2020-05-15] MEDS: pantoprazole 40 mg SDV IVP (11:02)
[2020-05-15] MEDS: acetaminophen 325 mg Tablet 650 MG PO ×3 (11:07→22:15)
--- NOTE | 2020-05-15 12:05 | PC.NURSE ---
liquid stools with hard formed stool. minimal amount of had stool throughout liquid
[2020-05-15 13:36] LABS: Glucose Point of Care 140 mg/dL (70-110)
--- NOTE | 2020-05-15 14:38 | PC.NURSE ---
0800 recd. resting quietly.
--- NOTE | 2020-05-15 14:38 | PC.NURSE ---
up to [facility] numerous times today with 1/2 c amts stool more or less, with pea sized hard stool throught liquid stool c/o increased abd. pain and tenderness. explained staff would assist her with breast pump. she prefers to rest for now.
[2020-05-15] MEDS: enoxaparin 40 mg/0.4 mL Syringe SUBCUT (17:27)
[2020-05-15] MEDS: dextrose 10% 1,000 ML 15 ML IV (17:28)
[2020-05-15 18:17] LABS: Glucose Point of Care 145 mg/dL (70-110)
--- NOTE | 2020-05-15 18:31 | PC.NURSE ---
1800 transferred to [facility]. home meds tranferred, phone, [facility] breast pump, her manual breaast pump. a purse and clothing, phone career resource specialist.
[2020-05-15 21:14] LABS: Glucose Point of Care 126 mg/dL (70-110)
[2020-05-15] MEDS: lurasidone 20 mg Tablet PO (22:08)
[2020-05-16] VITALS (10 sets, daily range): BP systolic 105–121; BP diastolic 63–78; PULSE 70–86; RESP 17–24; TEMP 36.6–37.2; O2SAT 95–97
[2020-05-16 00:55] LABS: Glucose Point of Care 109 mg/dL (70-110)
--- NOTE | 2020-05-16 03:55 | PC.NURSE ---
Patient c/o sharp stabbing pain in URQ. Nurse was notified.
[2020-05-16] MEDS: oxyCODONE IR 30 mg Tablet 15 MG PO (05:05)
[2020-05-16 05:42] LABS: Basophils # 0.1 10^3/uL (0.0-0.1); Basophils % 0.3 %; Eosinophils # 0.1 10^3/uL (0.0-0.8); Eosinophils % 0.4 %; Hematocrit 30.7 % (37.0-47.0); Hemoglobin 9.7 g/dL (11.5-15.3); Lymphocytes # 1.5 10^3/uL (0.8-4.8); Lymphocytes % 9.9 %; Mean Corpuscular HGB Conc 31.6 g/dL (30.0-36.0); Mean Corpuscular Hemoglobin 30.7 pg (28.0-34.0); Mean Corpuscular Volume 97.2 fL (81-99); Mean Platelet Volume 10.4 fL (7.4-10.4); Monocytes # 0.7 10^3/uL (0.2-0.9); Monocytes % 4.8 %; Neutrophils # 12.07 10^3/uL (1.8-7.7); Neutrophils % 82.2 %; Nucleated Red Blood Cells % 0 %; Platelet Count 201 10^3/cmm (130-400); Red Blood Count 3.16 10^6/uL (4.1-5.3); Red Cell Distribution Width 13.2 % (12.1-15.1); White Blood Count 14.7 10^3/uL (4.0-10.0)
[2020-05-16 06:27] LABS: Alanine Aminotransferase 15 U/L (0-33); Albumin Level 1.9 g/dL (3.5-5.2); Alkaline Phosphatase 136 IU/L (35-105); Aspartate Amino Transferase 16 U/L (0-32); Blood Urea Nitrogen 9 mg/dL (6-20); Calcium 7.5 mg/dL (8.5-10.5); Carbon Dioxide 27 mmol/L (22-29); Chloride 102 mmol/L (98-107); Globulin 2.9 g/dL (1.3-4.6); Glomerular Filtration Rate 186.2 mL/min (90-130); Glucose 101 mg/dL (65-115); Osmolality Calculated 279 mOsm/kg (285-295); Sodium 135 mmol/L (136-145); Total Bilirubin 0.7 mg/dL (0.15-1.2); Total Protein 4.8 g/dL (6.6-8.7)
[2020-05-16 06:47] LABS: Glucose Point of Care 95 mg/dL (70-110)
--- NOTE | 2020-05-16 07:12 | PC.NURSE ---
THE PATIENT REPORTED A CHANGE IN HER ABDOMINAL PAIN AT APPROXIMATELY 0400. IT WENT FROM A DULL ACHE RATING IT A 5/10 TO A SHARP STABBING PAIN OF 8/10. THE PAIN WAS INTENSE ENOUGH THE PATIENT WAS COMPLAINING OF TROUBLE BREATHING. THE PATIENTS VITAL SIGNS WERE WNL AND STABLE. THE REPAIRER CONTROLLER TESTER PHYSICIAN WAS NOTIFIED AND A ONE TIME DOSE OF 15 MG OXY IR WAS GIVEN. THE PAIN REPORTS THE PAIN SUBSIDED SOME WITH THE PAIN MEDICATION, BUT DID NOT RESOLVE.
[2020-05-16] MEDS: pantoprazole 40 mg SDV IVP (08:46)
[2020-05-16] MEDS: cefTRIAXone 1,000 MG in sodium chloride 0.9% (plus) 50 ML 100 MG IV (08:46)
[2020-05-16] MEDS: sennosides-docusate Tablet 1 TAB PO (08:47)
[2020-05-16 08:51] LABS: Glucose Point of Care 83 mg/dL (70-110)
[2020-05-16] MEDS: lidocaine 1% 5 ML in potassium chloride premix 100 ML 25 ML IV (09:38)
[2020-05-16 10:19] LABS: Magnesium 1.5 mg/dL (1.7-2.3)
[2020-05-16 12:56] LABS: Glucose Point of Care 117 mg/dL (70-110)
[2020-05-16] MEDS: TRAMadol 50 mg Tablet PO (13:05)
[2020-05-16] MEDS: acetaminophen 325 mg Tablet 650 MG PO ×2 (16:07→21:46)
--- NOTE | 2020-05-16 17:14 | PM.PN ---
Subjective Subjective: Interval history: She is doing all right. Was bothered by right upper quadrant pain early in the morning, but that had resolved. Feeling somewhat bloated. Vitals/I&O/Wt Last Vital Signs Temp 98.9 F 05/16/20 15:27 Pulse 76 05/16/20 15:27 Resp 18 05/16/20 15:27 BP 121/78 05/16/20 15:27 Pulse Ox 96 05/16/20 15:27 05/16/20 05/16/20 05/16/20 06:59 14:59 22:59 Intake Total 1080 / 1080 Output Total 450 / 851 Balance -450 / 1469 1080 / 1080 Weight last 48 hrs Weight 79.333 kg Weight 80.603 kg Physical Exam Const: COMMON NORMALS: no acute distress and patient oriented x3 GENERAL APPEARANCE: cooperative and comfortable ORIENTATION/CONSCIOUSNESS: Yes awake HENMT: COMMON NORMALS: oropharynx normal Neck/C-Spine: COMMON NORMALS: no JVD Resp: COMMON NORMALS: normal respiratory effort and clear to auscultation bilaterally AUSCULTATION: clear to auscultation bilaterally Cardio: COMMON NORMALS: no JVD, regular rhythm, S1 normal heart sound present, S2 normal heart sound present and No murmurs present (Cardio) RATE: not tachycardic RHYTHM: regular rhythm HEART SOUNDS: S1 normal heart sound present and S2 normal heart sound present GI: INSPECTION: Yes abdominal distension AUSCULTATION: Yes normoactive bowel sounds PALPATION: Yes Tenderness to palpation present (GI) (Mid to lower abdomen. ) Extremity: COMMON NORMALS: no joint enlargement and no pedal edema Neuro: COMMON NORMALS: patient oriented x3 and moves all extremities Skin: COMMON NORMALS: no rashes or lesions noted GENERAL SKIN EXAM: no rashes or lesions noted Urinary Catheter Management^: Mckay: Cath Placed During This Visit: yes Reason for Continuing Indwelling Catheter: Acute Urinary Retention or Obstruction Urinary Catheter Date of Insertion: 05/11/20 Urinary Catheter Time of Insertion: 20:37 Data : 05/16/20 05:15 05/16/20 05:15 Micro: Microbiology 05/15/20 16:50 C.difficile Toxin B Gene (PCR) - Final Stool - Stool Aspirate 05/10/20 20:17 Blood Culture - Final Blood NO GROWTH AFTER 5 DAYS 05/10/20 20:20 Blood Culture - Final Blood NO GROWTH AFTER 5 DAYS A&P Assessment and plan (1) Sepsis: Has been improving, although leukocytosis improvement stalled somewhat today, WBC from 14.7. She feels overall subjectively has been improving. Some abdominal pain today, and feeling bloated. Continue Rocephin for now. Reassess to make sure she is steadily improving and if so, potentially may able to discharge within the next 1-2 days. Significant improvement is noted, last fever 100.8 on 05/13. T bili down to normal. Advance to full liquids. Status: Acute (2) UTI (urinary tract infection): As above. Mckay catheter due to retention 05/12. Consider voiding trial. Status: Acute (3) Obstipation: Improved. Additional bowel regimen today. Low-grade chronic small bowel obstruction. Status: Acute (4) Hypoglycemia: Decrease D10 rate. Advance diet to full liquid, she feels will do better with that as the broth really did not taste good. Status: Acute (5) Cholecystitis: At this time not suspected. Has cholelithiasis which will need outpatient follow-up. Status: Acute Additional A&P Information Cholelithiasis with also stone noted in gallbladder neck at risk of impaction Atelectasis: Incentive spirometry. Minimal right pleural effusion Minimal right hydronephrosis Vaginal bleeding Gestational diabetes Full code Attestations Medical Necessity Statement*: Continue admission for assessment management of improving sepsis, endometritis, UTI, possible thrombophlebitis, partial small bowel obstruction. Coding Level of Care Code Acute Wheat And Oats Flake Miller for [facility] Fwd Diagnoses Sepsis A41.9 UTI (urinary tract infection) N39.0 Obstipation K59.00 Hypoglycemia E16.2 Cholecystitis K81.9
[2020-05-16] MEDS: enoxaparin 40 mg/0.4 mL Syringe SUBCUT (17:35)
[2020-05-16] MEDS: bisacodyl 10 mg Supp PR (17:36)
[2020-05-16] MEDS: polyethylene glycol 3350 Pkt 17 gm PO (17:36)
[2020-05-16 20:24] LABS: Glucose Point of Care 104 mg/dL (70-110)
[2020-05-16] MEDS: lurasidone 20 mg Tablet PO (21:46)
[2020-05-17] VITALS: BP 119/76; PULSE 67; RESP 20; TEMP 36.9; O2SAT 98
[2020-05-17 00:28] LABS: Glucose Point of Care 112 mg/dL (70-110)
[2020-05-17] MEDS: acetaminophen 325 mg Tablet 650 MG PO (03:32)
[2020-05-17 03:43] VITALS: BP 106/65; PULSE 70; RESP 22; TEMP 36.5; O2SAT 95
[2020-05-17 03:48] LABS: Glucose Point of Care 99 mg/dL (70-110)
[2020-05-17 05:49] LABS: Basophils % 0.4 %; Eosinophils % 0.4 %; Hematocrit 32.8 % (37.0-47.0); Hemoglobin 10.4 g/dL (11.5-15.3); Lymphocytes # 1.5 10^3/uL (0.8-4.8); Lymphocytes % 13.5 %; Mean Corpuscular HGB Conc 31.7 g/dL (30.0-36.0); Mean Corpuscular Hemoglobin 31.1 pg (28.0-34.0); Mean Corpuscular Volume 98.2 fL (81-99); Mean Platelet Volume 10.4 fL (7.4-10.4); Monocytes # 0.6 10^3/uL (0.2-0.9); Monocytes % 5.3 %; Neutrophils # 8.74 10^3/uL (1.8-7.7); Neutrophils % 77.6 %; Nucleated Red Blood Cells % 0 %; Platelet Count 276 10^3/cmm (130-400); Red Blood Count 3.34 10^6/uL (4.1-5.3); Red Cell Distribution Width 13.4 % (12.1-15.1); White Blood Count 11.3 10^3/uL (4.0-10.0)
[2020-05-17 06:20] LABS: Alanine Aminotransferase 17 U/L (0-33); Albumin Level 2.1 g/dL (3.5-5.2); Alkaline Phosphatase 120 IU/L (35-105); Anion Gap 10.9 (5-19); Aspartate Amino Transferase 21 U/L (0-32); Blood Urea Nitrogen 5 mg/dL (6-20); Calcium 7.6 mg/dL (8.5-10.5); Carbon Dioxide 26 mmol/L (22-29); Chloride 102 mmol/L (98-107); Globulin 3.2 g/dL (1.3-4.6); Glomerular Filtration Rate 259.5 mL/min (90-130); Glucose 102 mg/dL (65-115); Osmolality Calculated 279 mOsm/kg (285-295); Sodium 136 mmol/L (136-145); Total Bilirubin 0.7 mg/dL (0.15-1.2); Total Protein 5.3 g/dL (6.6-8.7)
[2020-05-17 06:44] LABS: Potassium 2.9 mmol/L (3.5-5.1)
[2020-05-17 08:00] VITALS: BP 110/74; PULSE 80; RESP 16; TEMP 36.3; O2SAT 98
[2020-05-17] MEDS: pantoprazole 40 mg SDV IVP (08:43)
[2020-05-17] MEDS: cefTRIAXone 1,000 MG in sodium chloride 0.9% (plus) 50 ML 100 MG IV (08:44)
[2020-05-17] MEDS: lidocaine 1% 5 ML in potassium chloride premix 100 ML 25 ML IV (09:04)
[2020-05-17 09:25] LABS: Glucose Point of Care 110 mg/dL (70-110)
[2020-05-17 11:56] VITALS: BP 112/64; PULSE 86; RESP 19; TEMP 36.9; O2SAT 98
--- NOTE | 2020-05-17 12:52 | PM.DCS ---
Discharge Providers Date of Admission: 05/10/20 19:19 Date of Discharge: May 17, 2020 Attending Provider at Admission: Romero Roque MD Attending Provider at Discharge: Dominik Wright Diagnoses at Discharge Discharge Diagnosis (1) Sepsis: Status: Acute (2) UTI (urinary tract infection): Status: Acute (3) Obstipation: Status: Acute (4) Hypoglycemia: Status: Acute (5) Cholecystitis: Status: Acute Permanent problem details: Resolved or likely no cholecystitis in the first place. Cholelithiasis with a number of stones and a stone noted in gallbladder neck at risk of impaction. Other Information Additional DC diagnoses/information: Atelectasis: Incentive spirometry. Minimal right pleural effusion Minimal right hydronephrosis Vaginal bleeding Gestational diabetes Reason for Visit Reason for Visit: pain post vaginal deliver, n/v Hospital Course Hospital Course Pleasant 30-year-old lady -0-1-2, 7 days(had gestational diabetes), positive with group B strep at 36 weeks was discharged with stable vital on 05/04 after normal vaginal delivery without complications was admitted on 05/10 after presenting with abdominal pain, nausea and vomiting. She had noticed some vaginal discharge with little bit more odor with bleeding slowing down . On presentation general surgery was also assessment patient due to sepsis with possible cholecystitis noted on ultrasonography. She was initially started on Zosyn, vancomycin. Small no ascites, thickening of gallbladder wall noted on CT. noted enlarged but otherwise unremarkable uterus. Mild thickening of urinary bladder suggestive of possible urinary tract infection. CT angiogram chest 05/12 showed no PE. Minimal emphysematous bleb. Minimal right pleural effusion. Questionable tiny left pleural effusion. CT abdomen from same date showing findings of low-grade small bowel obstruction, likely chronic in nature free fluid in the abdomen. 15 x 9 mm ring calcification along the right pelvic sidewall questionably thought initially perhaps extra gallstone versus phlebolith. Prescription with surgery now fistulization or other evidence noted of extruded stone, and stone did not match other stones visualized in the gallbladder. Filling defects noted in the gallbladder with increased density consistent with gallstones. Periportal edema noted in the liver, possible hepatitis or cholecystitis. Noted splenomegaly. Minimal right hydronephrosis and mild upper right hydroureter also discussed with urology, and was likely physiologic or possibly chronic, not likely significant enough to contribute to the clinical picture. Noted bilateral ovarian varices, uterine enlargement from state. CHEMICAL PROCESS EQUIPMENT OPERATOR was consulted and per recommendation antibiotics were continued. With abdominal distention, vomiting, lack of oral intake received support with IV hydration. NG tube with LIS. With persistent sepsis with a number of possible sources, underwent additional assessment by MRCP with finding of gallbladder top normal size with numerous stones. Tiny amount of adjacent free fluid. Gallbladder wall not thickened. Suspected resolved acute cholecystitis. Stone noted in the neck of the gallbladder at risk of, but without current CBD obstruction. Severe constipation noted. Additional nonurgent evaluation for cholecystectomy was recommended by surgery. She also received several enemas, and intensified bowel regimen with regards to partial small bowel obstruction. Urine culture eventually growing E. coli. Due to lack of improvement/persistent sepsis antibiotics were adjusted with addition of gentamicin. Zosyn was discontinued due to limited RAY. She was empirically also treated for possible pelvic thrombophlebitis associated with endometritis. Back pain while in sepsis was assessed by CT thoracic lumbar which were unremarkable. Blood cultures were unremarkable. Due to hypoglycemia required transient support with D10. Her sepsis gradually improved. Last fever was on 05/13. Per gynecology recommendations anticoagulation was de-escalating to prophylactic dose, antibiotics were changed to oral therapy with third-generation cephalosporin. Her small bowel obstruction/obstipation improved as well, and with bowel regimen, Keira notes that she has had multiple bowel movements. Tolerating full liquid diet currently. Her leukocytosis has been improving, and currently is down to 11.3. She reports she is feeling much better and requests to be discharged home today. We have weaned off D10, and if her blood glucose remains good, she will discharge home later this afternoon to follow-up as discussed with specialists with her PCP, gynecology in office, as well as general surgery for plans of nonemergent cholecystectomy. Physical Exam Const: COMMON NORMALS: no acute distress, patient oriented x3 and alert GENERAL APPEARANCE: cooperative and comfortable ORIENTATION/CONSCIOUSNESS: Yes awake HENMT: COMMON NORMALS: oropharynx normal Neck/C-Spine: COMMON NORMALS: no JVD Resp: COMMON NORMALS: normal respiratory effort and clear to auscultation bilaterally AUSCULTATION: clear to auscultation bilaterally Cardio: COMMON NORMALS: no JVD, regular rhythm, S1 normal heart sound present, S2 normal heart sound present and No murmurs present (Cardio) RHYTHM: regular rhythm HEART SOUNDS: S1 normal heart sound present and S2 normal heart sound present GI: COMMON NORMALS: Normal to inspection, nondistended, normoactive bowel sounds present, Soft to palpation and non-tender PALPATION: Yes Soft to palpation and Yes Tenderness to palpation present (GI) (Mildly, much better) OTHER: Mild distention, improving Extremity: COMMON NORMALS: no joint enlargement and no pedal edema Neuro: COMMON NORMALS: patient oriented x3 and moves all extremities SENSORIUM/ORIENTATION: Yes alert Skin: COMMON NORMALS: no rashes or lesions noted GENERAL SKIN EXAM: no rashes or lesions noted Urinary Catheter Management^: Mckay: Cath Placed During This Visit: yes Reason for Continuing Indwelling Catheter: Accurate Measurement of Urinary Output in Critically Ill Patients Urinary Catheter Date of Insertion: 05/11/20 Urinary Catheter Time of Insertion: 20:37 Discharge Data Data Completed and Pending: Completed Studies During Hospitalization Category Date Time Status CT abdomen pelvis w con* [id number] Stat Cat Scan 05/10/20 21:[address] angio chest w abd pel w con Stat Cat Scan 05/12/20 02:[address] lumbar spine w o con* [id number] Routi ne Cat Scan 05/13/20 16:[address] thoracic spin wo con* [id number] Rout ine Cat Scan 05/13/20 16:32 Completed XR chest 1V vin ble [id number] Stat Exams 05/10/20 19:32 Completed XR chest 1V vin ble [id number] Stat Exams 05/12/20 05:49 Completed MR MRCP [id number] Urg ent MRI 05/12/20 06:16 [place] [id number] Routin e Ultrasound 05/12/20 Completed US gall bladder 7 [id number] Urgent Ultrasound 05/10/20 17:12 Completed US pelvic complet e* [id number] Urgent Ultrasound 05/10/20 16:30 Completed Pending at discharge Category Date Time Status Complete Blood Co unt w/Auto AM LABS Lab 05/18/20 04:00 Ordered Labs from last 24 hours 05/17/20 05/17/20 05/17/20 09:21 05:12 05:12 WBC 11.3 H RBC 3.34 L Hgb 10.4 L Hct 32.8 L MCV 98.2 MCH 31.1 MCHC 31.7 RDW 13.4 Plt Count 276 MPV 10.4 Neut % (Auto) 77.6 Lymph % (Auto) 13.5 [place] % (Auto) 5.3 Eos % (Auto) 0.4 Baso % (Auto) 0.4 Neut # (Auto) 8.74 H Lymph # (Auto) 1.5 [place] # (Auto) 0.6 Eos # (Auto) 0.0 Baso # (Auto) 0.0 Nucleated RBC % (a uto) 0 Nucleated RBCs # 0.0 Sodium 136 Potassium 2.9 L Chloride 102 Carbon Dioxide 26 Anion Gap 10.9 BUN 5 L Creatinine 0.3 L GFR Calculation 259.5 H Glucose 102 POC Glucose 110 Calculated Osmolal ity 279 L Calcium 7.6 L Total Bilirubin 0.7 AST 21 ALT 17 Alkaline Phosphata se 120 H Total Protein 5.3 L Albumin 2.1 L Globulin 3.2 05/17/20 05/17/20 05/16/20 03:41 00:07 19:34 WBC RBC Hgb Hct MCV MCH MCHC RDW Plt Count MPV Neut % (Auto) Lymph % (Auto) [place] % (Auto) Eos % (Auto) Baso % (Auto) Neut # (Auto) Lymph # (Auto) [place] # (Auto) Eos # (Auto) Baso # (Auto) Nucleated RBC % (a uto) Nucleated RBCs # Sodium Potassium Chloride Carbon Dioxide Anion Gap BUN Creatinine GFR Calculation Glucose POC Glucose 99 112 104 Calculated Osmolal ity Calcium Total Bilirubin AST ALT Alkaline Phosphata se Total Protein Albumin Globulin 05/16/20 12:51 WBC RBC Hgb Hct MCV MCH MCHC RDW Plt Count MPV Neut % (Auto) Lymph % (Auto) [place] % (Auto) Eos % (Auto) Baso % (Auto) Neut # (Auto) Lymph # (Auto) [place] # (Auto) Eos # (Auto) Baso # (Auto) Nucleated RBC % (a uto) Nucleated RBCs # Sodium Potassium Chloride Carbon Dioxide Anion Gap BUN Creatinine GFR Calculation Glucose POC Glucose 117 Calculated Osmolal ity Calcium Total Bilirubin AST ALT Alkaline Phosphata se Total Protein Albumin Globulin Vitals: Last Vital Signs Temp 98.5 F 05/17/20 11:56 Pulse 86 05/17/20 11:56 Resp 19 H 05/17/20 11:56 BP 112/64 05/17/20 11:56 Pulse Ox 98 05/17/20 11:56 Discharge Plan Discharge Patient Disposition: Home Condition: Stable Prescriptions: New polyethylene glycol 3350 17 gram Powder In Packet 17 g PO BID Qty: 60 RF: 0 cefdinir 300 mg capsule 300 mg PO BID 3 Days Qty: 6 RF: 0 ondansetron HCl [Zofran] 4 mg tablet 4 mg PO Q8H PRN (Reason: nausea and vomiting) 4 Days Qty: 12 RF: 0 pantoprazole 40 mg tablet,delayed release (DR/EC) 40 mg PO DAILY Qty: 7 RF: 0 Continued Latuda 20 mg tablet 20 mg PO DAILY Qty: 30 RF: 4 acetaminophen 325 mg capsule 325 mg PO Q4H PRN (Reason: fever or pain) Qty: 60 RF: 0 Discontinued ibuprofen 800 mg tablet 800 mg PO TID PRN (Reason: pain) Qty: 60 RF: 0 No Action (DME) insulin syringes (disposable) 1 mL syringe See Rx Instructions .ROUTE .MEDSUPPLY Qty: 500 RF: 3 (DME) blood-glucose meter [Blood Glucose Monitoring] Kit See Rx Instructions .ROUTE .MEDSUPPLY Qty: 1 RF: 6 Discharge Orders: Discharge Order (Routine); Ordered 05/17/20 Ordered By: Dominik Wright Referrals: Kendall Rm MD [Physician] - 05/19/20 10:00 am (Follow up with Jimmie Wang May 19 at 10:00 am) Romero Roque MD [Physician] - 2 weeks (Please call Dr Colón office first thing Monday at [phone] to schedule an appointment for 2 weeks) Jaime Ramos MD [Physician] - 2 weeks (Please call Dr Landrum's office first thing Monday morning to schedule an appointment for in two weeks.) Discharge Diet: Advance as tolerated, As Directed, Low Cholesterol and Low Fat Discharge Activity: Increase activity as tolerated and As per PT/OT instructions Patient Instructions: Ondansetron (By mouth), Cefdinir (By mouth), Pantoprazole (By mouth), Polyethylene Glycol 3350 (By mouth) Activity Restrictions/Additional Instructions: Please monitor your blood glucose at least 4 times daily, if glucose is low (less than 60-70), please take sugary snacks by mouth, recheck glucose in 15-20 minutes, if improves, recheck again in 1 hour, if still low, take more by mouth, and recheck again, if persistently low please seek medical attention without delay. Please add protein shakes to meals. Continue bowel regimen. Add fiber to meals. Avoid constipation. Maintain low-fat/low-cholesterol diet due to gallstones. Follow-up with the surgeon in office in [address] Ramos in office the week after next. Contact office with any questions. If you experience any fevers, return of pain, bleeding or other concerning symptoms please call 911. Discharge Attestations Time Spent in Discharge Care*: greater than 30 min Quality Metrics Clinical Quality Measures During this hospital stay, did patient experience: None Coding Level of Care Code Acute Vision Mixer for Chg Fwd Diagnoses Sepsis A41.9 UTI (urinary tract infection) N39.0 Obstipation K59.00 Hypoglycemia E16.2 Cholecystitis K81.9
[2020-05-17 13:23] LABS: Glucose Point of Care 105 mg/dL (70-110)
--- NOTE | 2020-05-17 13:25 | PC.NURSE ---
Patient states that she has a blood glucose monitor at home.
[2020-05-17 14:53] LABS: Glucose Point of Care 97 mg/dL (70-110)
[2020-05-17 16:40] VITALS: BP 112/64; PULSE 86; RESP 19; TEMP 36.9; O2SAT 98
--- NOTE | 2020-05-17 16:40 | PC.NURSE ---
Patient left on foot while this nurse was searching for a bag for belongings.
[2020-05-17 17:44] LABS: Glucose Point of Care 141 mg/dL (70-110)
[2020-05-17 17:44] LABS: Glucose Point of Care 91 mg/dL (70-110)
== END 2020-05-17 15:30 | disposition home or self-care (01) | DRG 872 ==
LOC: ER 16:18 → CSU 19:46 → ICU 05-11 07:37 → MEDSURG 05-15 18:12
PROVIDERS: Internal Medicine; Obstetrics & Gynecology; Admitting Provider Surgery; Emergency Provider Emergency Medicine; Visit Provider Internal Medicine
DX: A41.9 Sepsis, unspecified organism (principal); O86.20 Urinary tract infection following delivery, unspecified; K80.00 Calculus of gallbladder with acute cholecystitis without obstruction; O86.12 Endometritis following delivery; N13.30 Unspecified hydronephrosis; R18.8 Other ascites; K56.600 Partial intestinal obstruction, unspecified as to cause; J98.11 Atelectasis; J90 Pleural effusion, not elsewhere classified; O24.439 Gestational diabetes mellitus in the puerperium, unspecified control; O99.63 Diseases of the digestive system complicating the puerperium; O99.335 Smoking (tobacco) complicating the puerperium; F17.210 Nicotine dependence, cigarettes, uncomplicated; O99.893 Other specified diseases and conditions complicating puerperium; O90.89 Other complications of the puerperium, not elsewhere classified; F31.9 Bipolar disorder, unspecified; I95.9 Hypotension, unspecified; K59.00 Constipation, unspecified; M54.6 Pain in thoracic spine; M54.5 Low back pain
CPT/HCPCS: 12345; 36415; 36416; 51702; 71045; 71275; 72128; 72131; 74177; 74181; 76705; 76856; 80053; 80170; 80202; 81001; 82248; 82962; 83605; 83735; 85007; 85025; 85049; 85362; 85378; 85384; 85610; 85730; 86705; 86706; 86709; 86803; 87040; 87077; 87086; 87186; 87340; 87426; 87493; 93005; 93970; 96372; 96375; 97110; 97116; 97161; 97165; 97530; 97535; 99283; C9113; J0696; J1170; J1580; J1650; J1885; J2270; J2405; J2543; J3370; J3475; J3480; J7030; J7040; J7799; Q9967

== ENCOUNTER → 2020-06-03 10:38 | Outpatient (BNVA) | payer MEDICAID, SELFPAY | PROVIDERS: Visit Provider Obstetrics & Gynecology | DX: Z67.91 Unspecified blood type, Rh negative (principal) | CPT/HCPCS: 86850; 86900 ==

== ENCOUNTER → 2020-07-01 09:33 | Outpatient (BNVA) | payer MEDICAID, SELFPAY | PROVIDERS: Visit Provider Obstetrics & Gynecology | DX: O24.429 Gestational diabetes mellitus in childbirth, unspecified control (principal) | CPT/HCPCS: 82947 ==

== ENCOUNTER → 2020-07-23 17:41 | Outpatient (BNVA) | payer MEDICAID, SELFPAY | PROVIDERS: Visit Provider Surgery | DX: Z01.812 Encounter for preprocedural laboratory examination (principal) | CPT/HCPCS: 87635 ==

== ENCOUNTER 2020-07-28 08:01 | Day surgery (SDC) | payer MEDICAID, SELFPAY ==
[2020-07-27 09:13] VITALS: BMI 26.3
[2020-07-28] VITALS (9 sets, daily range): BP systolic 113–132; BP diastolic 71–93; PULSE 65–92; RESP 16–20; TEMP 36.3–36.5; O2SAT 96–100
[2020-07-28 08:27] LABS: OR HCG Qualitative Urine Negative (Negative)
--- NOTE | 2020-07-28 08:31 | P.ANESASSM_ITS ---
Pre-Anesthetic Assessment Pre-Anesthetic Assessment: Height/Weight: Height 1.7 m Weight 76.204 kg Temp Pulse Resp BP Pulse Ox 97.4 F L 92 18 119/71 100 07/28/20 08:16 07/28/20 08:16 07/28/20 08:16 07/28/20 08:16 07/28/20 08:16 Preop Diagnosis: Symptomatic cholelithiasis Proposed Procedure: Operation Date: 07/28/20 10:05 Proposed Procedures p Laparoscopic Cholecystectomy 02308 k80.20(Not Applicable) - Romero Roque MD s Lap Fulg,Removal of Tubes Sterilization(Not Applicable) - Jaime Ramos MD Familial anesthetic complications: None Was Beta Nas taken within 24 hours: N/A Last intake: Intake Last Liquid Date 07/27/20 Last Liquid Time 22:00 Last Solid Date 08/20/20 Last Solid Time 10:30 Social: Social History: Tobacco and No alcohol Exam: Pre-Anes Outpt Exam: alert, oriented x 3, clear to auscultation bilaterally and regular rate & rhythm Airway: Cervical ROM: WNL MP: 3 Dentition: Full Metabolic: Comments: sepsis after her Anesthetic Plan: ASA status: 2 Anesthesia: General Risk of > 500 ml blood loss (7ml/kg in children): No PFSH Anesthesia PFSH: Medical History Bipolar disorder Cholelithiases History of drug abuse History of gestational diabetes Gestational diabetes in third . Tobacco use Surgical History H/O LEEP (~2013) states she had moderate dysplasia Family History Grandmother Uterine cancer, Onset Age: 38 MGM Unknown No pertinent family history hypertension, high cholesterol, diabetes, thyroid or stroke Denies family history of Breast cancer Social History Smoking and tobacco status: current every day smoker cigarettes Packs smoked per day: 0.25 [ Other cigarette details: was smoking up to 1/2-1ppd ] and e- cigarettes E-Cigarette Details: vaporizer device E-cig/vape details: every other day Alcohol intake: current Alcohol intake frequency: holidays/special occasions only Other details last substance use: Uses marijuana to treat her stress Marital status: Single Number of children: 2 Current occupational status: employed Female Reproductive History: Date of last menstrual period: 07/03/20 Data Anesthesia Other Labs: Laboratory Results - last 48 hr 07/28/20 08:16 Urine HCG, Qual Negative Cardiac Studies: No Data to Display
[2020-07-28] MEDS: gabapentin 300 mg Capsule PO (08:38)
[2020-07-28] MEDS: sodium chloride 0.9% 1,000 ML 30 ML IV (08:38)
--- NOTE | 2020-07-28 08:44 | W.PM.OPSUD ---
Surgery/Procedure H&P Update DATE OF PROCEDURE: July 28, 2020 DATE H&P PERFORMED: 07/01/20 H&P UPDATE INFORMATION: I have reviewed H&P completed within last 30 days, I have examined patient prior to procedure, No changes to prior documentation and H&P is in [facility] [place] on date indicated PREOP DIAGNOSIS: Symptomatic cholelithiasis, Undesired fertility PLANNED PROCEDURE: Operation Date: 07/28/20 10:05 Proposed Procedures p Laparoscopic Cholecystectomy 57496 k80.20(Not Applicable) - MD sharda Montes,Removal of Tubes Sterilization(Not Applicable) - Jaime Ramos MD
[2020-07-28 08:54] LABS: Basophils % 0.7 %; Eosinophils # 0.2 10^3/uL (0.0-0.8); Eosinophils % 3.7 %; Hematocrit 41.1 % (37.0-47.0); Hemoglobin 13.1 g/dL (11.5-15.3); Lymphocytes # 1.6 10^3/uL (0.8-4.8); Lymphocytes % 39.2 %; Mean Corpuscular HGB Conc 31.9 g/dL (30.0-36.0); Mean Corpuscular Hemoglobin 31.3 pg (28.0-34.0); Mean Corpuscular Volume 98.1 fL (81-99); Mean Platelet Volume 10.8 fL (7.4-10.4); Monocytes # 0.4 10^3/uL (0.2-0.9); Monocytes % 9.2 %; Neutrophils # 1.89 10^3/uL (1.8-7.7); Nucleated Red Blood Cells % 0 %; Platelet Count 254 10^3/cmm (130-400); Red Blood Count 4.19 10^6/uL (4.1-5.3); Red Cell Distribution Width 14.9 % (12.1-15.1)
[2020-07-28 09:17] LABS: Alanine Aminotransferase 23 U/L (0-33); Albumin Level 4.2 g/dL (3.5-5.2); Alkaline Phosphatase 80 IU/L (35-105); Anion Gap 12.1 (5-19); Aspartate Amino Transferase 23 U/L (0-32); Blood Urea Nitrogen 15 mg/dL (6-20); Calcium 9.3 mg/dL (8.5-10.5); Carbon Dioxide 28 mmol/L (22-29); Chloride 100 mmol/L (98-107); Globulin 3.5 g/dL (1.3-4.6); Glomerular Filtration Rate 143.9 mL/min (90-130); Glucose 81 mg/dL (65-115); Osmolality Calculated 282 mOsm/kg (285-295); Potassium 4.1 mmol/L (3.5-5.1); Sodium 136 mmol/L (136-145); Total Bilirubin 0.8 mg/dL (0.15-1.2); Total Protein 7.7 g/dL (6.6-8.7)
--- NOTE | 2020-07-28 10:05 | W.PM.OPSUD ---
Surgery/Procedure H&P Update DATE OF PROCEDURE: July 28, 2020 DATE H&P PERFORMED: 07/01/20 H&P UPDATE INFORMATION: I have reviewed H&P completed within last 30 days, I have examined patient prior to procedure and No changes to prior documentation CHANGES TO PREVIOUS DOCUMENTATION: Labs are appropriate PREOP DIAGNOSIS: Symptomatic cholelithiasis, Undesired fertility PRIMARY INDICATION FOR PROCEDURE: The same PLANNED PROCEDURE: Operation Date: 07/28/20 10:05 Proposed Procedures p Laparoscopic Cholecystectomy 33133 k80.20(Not Applicable) - MD sharda Montes,Removal of Tubes Sterilization(Not Applicable) - Jaime Ramos MD
[2020-07-28] MEDS: lidocaine 2% INJ 20 mL INJECTION (10:35)
--- NOTE | 2020-07-28 11:38 | P.OP_ITS ---
Operative Report Date of procedure: July 28, 2020 Pre-op Diagnosis: Symptomatic cholelithiasis, Undesired fertility Post-op diagnosis: same Procedure Done: Laparoscopic bilateral tubal fulguration with complete salpingectomy, Lysis of omental adhesions Specimens removed/disposition: Right and left fallopian tubes Surgeon: Jaime Ramos Locomotive Inspector: None Anesthesia: General Estimated blood loss (mL): 10 IV fluids (mL): 1,000 Complications: None Findings: Omental adhesions along the anterior abdominal wall starting just below the umbilicus and extending towards the left lower pelvic region. These were able to be easily just with gentle traction. Underneath the adhesions was a firm mass down the midline extending from the urachus in the midline to the obliterated left umbilical artery. This extended down to the bladder. The left fallopian tube was densely adherent along the pelvic sidewall above the level of the uterus. There was also filmy adhesions between the uterus and the bladder. Both ovaries appeared normal. No posterior cul-de-sac adhesions noted. Brief History: Patient is a 30-year-old female 3, para 2-0-1-2 who is approximately 12 weeks . She was requesting complete removal of the tubes for sterilization. In addition she had been found to have gallstones and was planning to have the gallbladder removed at the same time. Permanent sterilization was reviewed with her. Reviewed with her that complete removal of the tubes cannot be reversed. Failure rates for sterilization was reviewed. Questions were answered. Patient wished to proceed with surgery. Medicaid sterilization form had been signed on 03/13/2020 Procedure: Patient was taken to the operating room were general anesthesia was obtained. She was prepped and draped in the usual sterile fashion in the dorsal supine p osition. Sequential compression boots were placed prior to starting the case. Mckay catheter had been inserted. A Romero style trocar was placed in the supraumbilical region by Dr. Roque. He turned over the rest of the case after this. The anterior abdominal wall was inspected and she was noted to have omental adhesions starting just below the level of the umbilicus and extending towards t he left anterior pelvis. Right ovary and tube appeared normal. The left ovary and tube were not able to be visualized due to the adhesions. In the right and left lower quadrants lateral to the inferior epigastric vessels, the skin was injected with 2% lidocaine plain. Skin incisions were made with a knife and a 5 mm trocar and sheath were inserted under direct visualization at each site. Using graspers and the Voyant sealing device, the omental adhesions were easily taken down. They were not densely adherent and in most cases easily pulled away from the abdominal wall. Once the omentum was freed, the left tube and ovary was able to be visualized. The left fallopian tube was densely adherent along the anterior pelvic sidewall. Using scissors, sharp dissection of the tube away from the sidewall was performed until the tube was completely freed. Using the Voyant sealing device, starting on the left side at the fimbriated end of the tube, the mesosalpinx was sealed and cut along the length of the tube. At the proximal end of the tube, the tube itself was sealed and cut. The fallopian tube was brought out through the port. Using the Voyant sealing device, starting on the right side at the fimbriated end of the tube, the mesosalpinx was sealed and cut along the length of the tube. At the proximal end of the tube, the tube itself was sealed and cut. The fallopian tube was brought out through the port. The dissection area was thoroughly inspected and noted to be hemostatic. Along the anterior abdominal wall along the area of the adhesiolysis with the omentum was a firm, fibrotic feeling area that extended from the urachus in the midline to the left obliterated umbilical artery. This extended down to the bladder. (This was also visualized by Dr. Roque who thought this may be a urachal cyst). No biopsies were taken at this time. The abdomen was deflated and the 5 mm sheaths were removed. The sites were closed with single stitches of 4-0 Vicryl suture. The case was then turned over to Dr. Roque for completion of the cholecystectomy. Please see his dictation for his part of the surgery. DRAINS: Mckay catheter was to be removed at the end of the case. DISPOSITION: Patient is to be discharged home later today. FOLLOWUP APPOINTMENT: Followup appointment is scheduled in my office in approximately 2 weeks. MEDICATIONS: Will be provided by Dr. Roque
--- NOTE | 2020-07-28 12:10 | SUR.OPER ---
NOTIFIED [facility] FAMILY OF START OF PROCEDURE. STAFF VERBALIZED CONCERN OF PATIENT STAYING BUY HERSELF. NORIS STATED THAT IF SHE NEEDED A PLACE TO STAY HE WOULD BE WILLING TO LET HER STAY AT HIS HOME AFTER SURGERY.
--- NOTE | 2020-07-28 12:35 | P.OP_ITS ---
Operative Report Date of procedure: July 28, 2020 Pre-op Diagnosis: Symptomatic cholelithiasis, Undesired fertility Post-op diagnosis: same Post-op Findings: Chronic calculus cholecystitis Procedure Done: Laparoscopic cholecystectomy Specimens removed/disposition: Gallbladder and contents Surgeon: Romero Roque Assistant Store Manager Trainee: Surgical nita Capone and healing Circulating nurse Kate Anesthesia: General (etcher enameling's Nathalie Laguna) Estimated blood loss (mL): 20 IV fluids (mL): 1,200 Condition: stable Disposition: same day Brief History: Plan of care; After thorough history physical examination and reviewing the chart ,I counseled the patient for laparoscopic cholecystectomy possible open, indications risks including but not limited injury to the common bile duct and other viscera.benefits and alternatives all discussed with the patient, and she did agree to proceed. All questions have been answered and all concerns have been addressed to patient's satisfaction. Rationale was carefully and clearly discussed with the patient.Appropriate informed consent have been reviewed and signed. Patient was also counseled for bilateral tubal ligation per Gynecology service, please find it in a separate note. Procedure: Patient was identified in the holding area and taken back to the operative suite, placed in supine position intubated by anesthesia . Time-out was done verifying the patient's name/date of /planned procedure and destination after the procedure, all were in agreement. SCDs confirmed to be functioning, preoperative antibiotics administered per protocol, and beta jennifer protocol was confirmed. Patient was appropriately secured to the table, footboard was applied to the OR table, before prep and drape anesthesia was asked to tilt the table back and forth to make sure that the patient is appropriately secured and she was. Prep and drape of the abdomen was done under the usual sterile technique, followed by that supraumbilical skin incision,skin incision was done by a 15 blade knife, and stay sutures were applied to the fascia and Romero trocar technique was used to enter the abdominal without injuring any abdominal viscera, started by low flow gas insufflation followed by a high flow, started with a 10 mm laparoscope and under direct vision there was no evidence of any injuries. At this point I did scrub out and Dr. 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 Incidental finding of Urachal remanent, omental adhesions were taken down by Dr. Ramos. Dr. Araiza was contacted intraoperatively and he kindly had opportunity to look into the CT scan and there was no obvious communication with the bladder and he recommended follow-up as an outpatient. I did scrub back in after Dr. Ramos's part the scope then switched to a 30? ,10 millimeter scope and under direct visualization 5 millimeter trocar was inserted in the epigastric region followed by two 5 mm trocars were inserted in the right upper quadrant that was done after injection of local lidocaine 2% at all incision sites. Gallbladder showed calculus cholecystitis with edema &with adhesions Patient was then positioned in the head up and tilted to the left Ratcheted forceps were introduced into the lateral most 5mm port and was applied unto the fundus of the gallbladder cephalad and using Bullet forceps the infundibulum of the gallbladder was retracted laterally. Using [place] forceps then L-hook cautery to dissect the peritoneum overlying the Calot's triangle which was then opened medially and laterally until the cystic duct and the cystic artery were skeletonized. Dissection was carried along the body of the gallbladder and after ensuring critical view of safety was identfied. Cystic duct and cystic artery where seen connected to the gallbladder. Clips were applied on the cystic duct towards the common bile duct 1 towards the gallbladder then divided is in sharp scissors, 2 clips were then applied onto the cystic artery and 1 towards the gallbladder and divided by sharp scissors. Dissection was then carried along of the gallbladder from the gallbladder fossa using cautery as well as sharp dissection with heat energy. The gallbladder then was dissected out from the gallbladder fossa totally , cholecystectomy was then achieved and was placed in an Endo Catch bag and then retrieved from the Romero trocar site under direct visualization using a 5 mm 30 ? scope through the epigastric trocar, specimen was then passed to the circulating nurse to go for permanent pathology,irrigation and hemostasis was done to the gallbladder fossa after hemostasis was secured, final survey laparoscopy was done that showed no injuries.Suction irrigation was obtained. There was no bleeding from the pelvic surgery part. The supraumbilical fascial defect was then closed using interrupted #1 PDS sutures using a fascial closure device ;Aj Jones under direct visualization Gas was allowed to deflate,Trocars were then taken out under direct vision there was no evidence of bleeding Specimen was passed to the circulating nurse for permanent pathology. No drains were placed and the supraumbilical incision as well as all trocar sites were closed by by 4-0 Monocryl to approximate the skin edges of the supraumbilical incision, dressing was applied in the form of surgical glue and the Mckay catheter was removed at the end of the procedure. Patient got extu bated and was taken to recovery area in a stable condition. Count of sponges, needles and instruments were completed at the end of the procedure I was present for the whole entire procedure.
--- NOTE | 2020-07-28 12:52 | SUR.PHASEI ---
WARM BLANKETS TO PT, PT SLEEPS IF NOT DISTURBED VSS. ABD SOFT WITH 6 SITES WITH DERMABOND D/I NO BLEEDING OR HEMATOMA NOTEDS.ABD SOFT.
--- NOTE | 2020-07-28 12:57 | SUR.PHASEI ---
PT REMAINS SLEEPY BUT OPENS EYES TO VOICE, PT NODS HEAD NO TO PAIN AND NAUSEA QUESTIONS, PT ON RA TRIAL. VSS.
--- NOTE | 2020-07-28 13:17 | SUR.PHASEI ---
1308 PT AWAKE ALERT PT DENIES NEED TO COUGH, WARM BLANKET TO ABD PT INSTRUCTED TO SUPPORT ABD WHEN COUGHING , DR WALL AT BEDSIDE, PT TALKATIVE AND ALERT, REPORT TO OPS HANDOFF AT BEDSIDE, ABD SOFT SITES D/I, PT TAKING SIPS OF SODA IN OPS.
[2020-07-28] MEDS: HYDROcodone-acetaminophen 5-325 mg Tablet 1 TAB PO (13:33)
--- NOTE | 2020-07-28 14:33 | ANE.PACU2 ---
Inpatient post-anesthesia follow up: Airway intact: Yes Vital signs: Temperature 97.7 F Pulse Rate 78 Respiratory Rate 18 Blood Pressure 123/93 Pulse Oximetry 100 Oxygen Delivery Me thod Room Air Oxygen Flow Rate 8 Fraction of Inspir ed Oxygen Hydration adequate: Yes Nausea and vomiting: No Pain level: 2 Mental status: Baseline
== END 2020-07-28 14:43 | disposition home or self-care (01) ==
PROVIDERS: Obstetrics & Gynecology; Visit Provider Surgery
PROC: 0FT44ZZ Resection of Gallbladder, Percutaneous Endoscopic Approach (ICD-10-PCS; CPT 47562; principal; 2020-07-28 10:05)
PROC: (CPT 58661; 2020-07-28 10:05)
DX: K80.10 Calculus of gallbladder with chronic cholecystitis without obstruction (principal); Z30.2 Encounter for sterilization; F17.210 Nicotine dependence, cigarettes, uncomplicated
CPT/HCPCS: 47562; 58661; 12345; 36415; 80053; 81025; 84703; 85025; 88302; 88304; 96365; J0131; J0690; J1100; J2250; J2405; J2550; J2704; J2710; J3010; J3490; J7030

== ENCOUNTER → 2020-09-04 09:23 | Outpatient (BNVA) | payer MEDICAID, SELFPAY | PROVIDERS: Visit Provider Psychiatry & Neurology Psychiatry | DX: F32.9 Major depressive disorder, single episode, unspecified (principal); O99.345 Other mental disorders complicating the puerperium; F53.0 Postpartum depression; F10.10 Alcohol abuse, uncomplicated; F12.10 Cannabis abuse, uncomplicated | CPT/HCPCS: 90792 ==

== ENCOUNTER → 2020-10-19 13:15 | Outpatient (BNVA) | payer MEDICAID, SELFPAY | PROVIDERS: PCP Family Medicine Adult Medicine; Visit Provider Psychiatry & Neurology Psychiatry | DX: F31.9 Bipolar disorder, unspecified (principal); F32.9 Major depressive disorder, single episode, unspecified; O99.345 Other mental disorders complicating the puerperium; F53.0 Postpartum depression; F10.10 Alcohol abuse, uncomplicated; F12.10 Cannabis abuse, uncomplicated | CPT/HCPCS: 99214 ==

== ENCOUNTER → 2020-12-14 12:45 | Outpatient (BNVA) | payer MEDICAID, SELFPAY | PROVIDERS: PCP Family Medicine Adult Medicine; Visit Provider Psychiatry & Neurology Psychiatry | DX: F31.9 Bipolar disorder, unspecified (principal); F53.0 Postpartum depression; F10.10 Alcohol abuse, uncomplicated; F12.10 Cannabis abuse, uncomplicated | CPT/HCPCS: 99214 ==

== ENCOUNTER → 2021-02-05 15:00 | Outpatient (BNVA) | payer OTHER, MEDICAID, SELFPAY | PROVIDERS: PCP Family Medicine Adult Medicine; Visit Provider Counselor Professional | DX: F32.9 Major depressive disorder, single episode, unspecified (principal); F31.9 Bipolar disorder, unspecified; F10.10 Alcohol abuse, uncomplicated; Z72.0 Tobacco use; F12.10 Cannabis abuse, uncomplicated | CPT/HCPCS: 90834 ==

== ENCOUNTER → 2021-02-11 12:52 | Outpatient (BNVA) | payer OTHER, MEDICAID, SELFPAY | PROVIDERS: PCP Family Medicine Adult Medicine; Visit Provider Psychiatry & Neurology Psychiatry | DX: F32.9 Major depressive disorder, single episode, unspecified (principal); F53.0 Postpartum depression; F31.9 Bipolar disorder, unspecified; F10.10 Alcohol abuse, uncomplicated; O99.345 Other mental disorders complicating the puerperium | CPT/HCPCS: 99214 ==

== ENCOUNTER → 2021-02-25 12:48 | Outpatient (BNVA) | payer OTHER, MEDICAID, SELFPAY | PROVIDERS: PCP Family Medicine Adult Medicine; Visit Provider Counselor Professional | DX: F32.9 Major depressive disorder, single episode, unspecified (principal); O99.345 Other mental disorders complicating the puerperium; F53.0 Postpartum depression; F10.10 Alcohol abuse, uncomplicated; F12.10 Cannabis abuse, uncomplicated | CPT/HCPCS: 90834 ==

== ENCOUNTER 2021-03-30 | Outpatient (CLI) | payer SELFPAY | END 2021-03-30 00:01 | disposition home or self-care (01) | LOC: RAD 12-21 09:23 | PROVIDERS: Visit Provider Urology | DX: Z20.822 Contact with and (suspected) exposure to COVID-19 (principal) | CPT/HCPCS: 87635 ==

== ENCOUNTER 2021-04-19 18:37 | Emergency (ER) | payer MEDICAID, SELFPAY ==
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
[2021-04-19 19:02] VITALS: BP 124/83; PULSE 103; RESP 20; TEMP 36.4; O2SAT 100; BMI 27.3
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
[2021-04-19 20:00] VITALS: BP 125/80; PULSE 100; RESP 20; TEMP 36.4; O2SAT 98
== END 2021-04-19 20:10 | disposition home or self-care (01) ==
PROVIDERS: Emergency Provider Nurse Practitioner Family
DX: S00.33XA Contusion of nose, initial encounter (principal); Y09 Assault by unspecified means; F17.210 Nicotine dependence, cigarettes, uncomplicated; F31.9 Bipolar disorder, unspecified
CPT/HCPCS: 70450; 70486; 99282

== ENCOUNTER 2021-12-22 21:55 | Inpatient (IN) | payer MEDICAID, SELFPAY ==
[2021-12-22 22:09] VITALS: BMI 25.8
--- NOTE | 2021-12-22 22:24 | ED.C_ITS ---
HPI - Psych General: Chief Complaint: Psychiatric Symptoms Stated Complaint: SI Time Seen by Provider: 12/22/21 21:59 Source: patient and EMS Mode of arrival: EMS Limitations: no limitations History of Present Illness: 31-year-old female who states she has been having suicidal thoughts over the last 2 to 3 days. States she had a long history of depression and states that just this worsening she is now suicidal. States she would like to get help states she has not been admitted to a psych facility in years. She does abuse alcohol along with cannabis and intermittent methamphetamine use. She denies any worsening improving factors. Associated symptoms: Reports depression and suicidal ideation Review of Systems Const: Denies: fever(s), chills, body aches or change in appetite Eyes: Denies: blurry vision or eye discomfort ENMT: Denies: throat pain or dental pain Card: Denies: chest pain Resp: Denies: dyspnea GI: Denies: abdominal pain, nausea, vomiting or diarrhea : Denies: dysuria Musc: Denies: neck pain or back pain Skin/Breast: Denies: rash Neuro: Denies: headache(s) Psych: Reports: depression and suicidal ideation Georges/Lymph: Denies: easy bruising All/Imm: Denies: urticaria PFSH ED PFSH: Medical History Alcohol abuse Bipolar disorder Cannabis abuse History of drug abuse History of gestational diabetes Gestational diabetes in third . Major depressive disorder Post- depression Psychiatric care Tobacco use Urachal remnant Surgical History H/O LEEP (~2013) states she had moderate dysplasia S/P laparoscopic cholecystectomy (07/28/20) Performed by Dr. Roque at [facility] in [place], [place] S/P tubal ligation (07/28/20) Laparoscopic bilateral tubal fulguration with complete salpingectomy, lysis omental adhesions. Diagnosis: Symptomatic cholelithiasis, undesired fertility. Performed by Dr. Ramos at [facility] in [place], [place]. Family History Grandmother Uterine cancer, Onset Age: 38 MGM Unknown No pertinent family history hypertension, high cholesterol, diabetes, thyroid or stroke Denies family history of Breast cancer Social History Smoking and tobacco status: current every day smoker cigarettes Packs smoked per day: 0.25 [ Other cigarette details: was smoking up to 1/2-1ppd ] and e- cigarettes E-Cigarette Details: vaporizer device E-cig/vape details: every other day Alcohol intake: current Alcohol intake frequency: holidays/special occasions only Other details last substance use: Uses marijuana to treat her stress Marital status: Single Number of children: 2 Current occupational status: employed Female Reproductive History: Date of last menstrual period: 07/03/20 Physical Exam Const: COMMON NORMALS: no acute distress, patient oriented x3 and healthy appearing HENMT: COMMON NORMALS: normocephalic and atraumatic HEAD & SCALP: normocephalic and atraumatic Eye: COMMON NORMALS: Equal, round and reactive pupils present and EOMs intact bilaterally PUPIL: Yes Equal, round and reactive pupils present Neck/C-Spine: COMMON NORMALS: full ROM and supple Chest: COMMONS NORMALS: normal inspection of the chest and normal palpation of entire chest wall Resp: COMMON NORMALS: normal respiratory effort, No retractions, No use of accessory muscles and clear to auscultation bilaterally AUSCULTATION: clear to auscultation bilaterally Cardio: COMMON NORMALS: regular rate, regular rhythm and No murmurs present (Cardio) RATE: regular rate RHYTHM: regular rhythm GI: COMMON NORMALS: Normal to inspection, nondistended, normoactive bowel sounds present, Soft to palpation, non-tender and no masses PALPATION: Yes Soft to palpation Extremity: COMMON NORMALS: normal to inspection and full ROM Neuro: COMMON NORMALS: patient oriented x3, moves all extremities and no focal motor deficits Psych: COMMON NORMALS: mental status grossly normal and cooperative THOUGHT CONTENT: Yes Suicidality present Skin: COMMON NORMALS: no rashes or lesions noted and no wounds GENERAL SKIN EXAM: no rashes or lesions noted MDM - Psych Medical Decision Making Patient presents for suicidal ideation was placed on a 96-hour hold patient is medically cleared I spoke to psychiatrist and will admit at this time. Lab Data : 12/22/21 22:25 12/22/21 22:25 Laboratory Results WBC 6.1 10^3/uL (4.0-10.0) 12/22/21: RBC 4.21 10^6/uL (4.1-5.3) 12/22/21: Hgb 13.2 g/dL (11.5-15.3) 12/22/21: Hct 39.0 % (37.0-47.0) 12/22/21: MCV 92.6 fl (81-99) 12/22/21: MCH 31.4 pg (28.0-34.0) 12/22/21: MCHC 33.8 g/dL (30.0-36.0) 12/22/21: RDW 13.1 % (12.1-15.1) 12/22/21: Plt Count 261 10^3/cmm (130-400) 12/22/21: MPV 11.1 fL (7.4-10.4) H 12/22/21: Neut % (Auto) 49.0 % 12/22/21: Lymph % (Auto) 38.5 % 12/22/21: [place] % (Auto) 7.2 % 12/22/21: Eos % (Auto) 4.4 % 12/22/21: Baso % (Auto) 0.7 % 12/22/21: Neut # (Auto) 3.01 10^3/uL (1.8-7.7) 12/22/21: Lymph # (Auto) 2.4 10^3/uL (0.8-4.8) 12/22/21: [place] # (Auto) 0.4 10^3/uL (0.2-0.9) 12/22/21: Eos # (Auto) 0.3 10^3/uL (0.0-0.8) 12/22/21: Baso # (Auto) 0.0 10^3/uL (0.0-0.1) 12/22/21: Nucleated RBC % (auto) 0 % 12/22/21: Nucleated RBCs # 0.0 /100WBC 12/22/21: Sodium 138 mmol/L (136-145) 12/22/21 22:25 Potassium 3.9 mmol/L (3.5-5.1) 12/22/21 22:25 Chloride 106 mmol/L (98-107) 12/22/21 22:25 Carbon Dioxide 21 mmol/L (22-29) L 12/22/21 22:25 Anion Gap 14.9 (5-19) 12/22/21 22:25 BUN 7 mg/dL (6-20) 12/22/21 22:25 Creatinine 0.5 mg/dL (0.5-0.9) 12/22/21 22:25 GFR Calculation 143.0 mL/min (90-130) H 12/22/21 22:25 Glucose 89 mg/dL (65-115) 12/22/21 22:25 Calculated Osmolality 283 mOsm/kg (285-295) L 12/22/21 22:25 Calcium 8.4 mg/dL (8.5-10.5) L 12/22/21 22:25 Total Bilirubin 0.2 mg/dL (0.15-1.2) 12/22/21 22:25 AST 14 U/L (0-32) 12/22/21 22:25 ALT 13 U/L (0-33) 12/22/21 22:25 Alkaline Phosphatase 101 IU/L (35-105) 12/22/21 22:25 Total Protein 7.1 g/dL (6.6-8.7) 12/22/21 22:25 Albumin 4.2 g/dL (3.5-5.2) 12/22/21 22:25 Globulin 2.9 g/dL (1.3-4.6) 12/22/21 22:25 Salicylates < 0.3 mg/dL (3-10) L 12/22/21 22:25 Acetaminophen < 5.0 ug/mL (10-30) L 12/22/21 22:25 Ethyl Alcohol 64 mg/dL (0-10) H 12/22/21 22:25 Discharge Plan Discharge Patient Disposition: Admitted As Inpatient Clinical Impression: Suicidal ideation Condition: Stable Coding Level of Care Code ED [employer] Mill 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
[2021-12-22 22:30] LABS: Basophils % 0.7 %; Eosinophils # 0.3 10^3/uL (0.0-0.8); Eosinophils % 4.4 %; Hemoglobin 13.2 g/dL (11.5-15.3); Lymphocytes # 2.4 10^3/uL (0.8-4.8); Lymphocytes % 38.5 %; Mean Corpuscular HGB Conc 33.8 g/dL (30.0-36.0); Mean Corpuscular Hemoglobin 31.4 pg (28.0-34.0); Mean Corpuscular Volume 92.6 fl (81-99); Mean Platelet Volume 11.1 fL (7.4-10.4); Monocytes # 0.4 10^3/uL (0.2-0.9); Monocytes % 7.2 %; Neutrophils # 3.01 10^3/uL (1.8-7.7); Nucleated Red Blood Cells % 0 %; Platelet Count 261 10^3/cmm (130-400); Red Blood Count 4.21 10^6/uL (4.1-5.3); Red Cell Distribution Width 13.1 % (12.1-15.1); White Blood Count 6.1 10^3/uL (4.0-10.0)
[2021-12-22 22:48] LABS: Alanine Aminotransferase 13 U/L (0-33); Albumin Level 4.2 g/dL (3.5-5.2); Alcohol Level 64 mg/dL (0-10); Alkaline Phosphatase 101 IU/L (35-105); Anion Gap 14.9 (5-19); Aspartate Amino Transferase 14 U/L (0-32); Blood Urea Nitrogen 7 mg/dL (6-20); Calcium 8.4 mg/dL (8.5-10.5); Carbon Dioxide 21 mmol/L (22-29); Chloride 106 mmol/L (98-107); Globulin 2.9 g/dL (1.3-4.6); Glucose 89 mg/dL (65-115); Osmolality Calculated 283 mOsm/kg (285-295); Potassium 3.9 mmol/L (3.5-5.1); Sodium 138 mmol/L (136-145); Total Bilirubin 0.2 mg/dL (0.15-1.2); Total Protein 7.1 g/dL (6.6-8.7)
[2021-12-22 22:50] LABS: Acetaminophen < 5.0 ug/mL (10-30); Salicylate < 0.3 mg/dL (3-10)
[2021-12-22 23:11] VITALS: BP 131/87; PULSE 98; RESP 16; TEMP 36.5; O2SAT 99
[2021-12-23 06:00] VITALS: BP 107/65; PULSE 89; RESP 20; TEMP 36.5; O2SAT 98
[2021-12-23 08:09] LABS: Amphetamines Screen Urine Positive (Negative); Barbiturates Screen Urine Negative (Negative); Benzodiazepines Screen Urine Negative (Negative); Cocaine Screen Urine Negative (Negative); Opiate Screen Urine Negative (Negative); PCP Screen Urine Negative (Negative); THC Screen Urine Positive (Negative)
[2021-12-23 14:00] VITALS: BP 117/85; PULSE 83; RESP 17; TEMP 36.4; O2SAT 98
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
[2021-12-23 21:01] VITALS: BP 99/62; PULSE 83; RESP 20; TEMP 36.8; O2SAT 98
[2021-12-23 22:16] LABS: HCG Qualitative Urine. Negative (Negative)
[2021-12-24 06:00] VITALS: BP 125/73; PULSE 79; RESP 20; TEMP 37; O2SAT 99
[2021-12-24 13:26] VITALS: BP 109/71; PULSE 94; RESP 17; TEMP 36.6; O2SAT 98
--- NOTE | 2021-12-24 18:28 | P.NPUPN_ITS ---
Subjective NPU Subjective: Patient presents today reporting that she is understanding why she is here and is desirous of being connected with services. He is working with the social work team to find appropriate outpatient resources to lean on after discharge. We discussed the risk benefits and alternatives of initiating Prozac 20 mg p.o. every morning and Latuda 40 mg p.o. q. evening with meal and she understood agreed to proceed as is documented in this note. Mental Status Exam MSE Comments: This is a well nourished, well developed white female in hospital scrubs with adequate grooming and eye contact. No abnormal movements. Cooperative with exam in mild distress. Speech was normal rate and volume. Mood described as depressed, affect is congruent as she appeared distressed/dysphoric. Thought process, organized. Thought content: patient did not express lethality toward herself or others, no delusions noted and she did not appear to be attending to internal stimuli. Attention and concentration are intact and memory appeared reliable but none were formally tested. She is alert and oriented three times. Insight and judgment are fair. Impulse control is fair. Vitals/I&O/Wt Last Vital Signs Temp 97.8 F 12/24/21 13:26 Pulse 68 12/24/21 20:01 Resp 18 12/24/21 20:01 BP 118/68 12/24/21 20:01 Pulse Ox 96 12/24/21 20:01 Data NPU : 12/22/21 22:25 12/22/21 22:25 A&P Assessment and plan (1) Suicidal ideation: Status: Acute (2) Cannabis abuse: Status: Acute (3) Alcohol abuse: Status: Acute (4) Bipolar disorder: Status: Acute Plan This is a 31 year old white female with a history of bipolar disorder and substance abuse currently without her medications which she endorse had been successful, with a significant history of drug use who presents secondary to suicidal ideation. 1.? Continue current medications except restart Latuda at 40 mg and restart Prozac at 20 mg daily. 2.? Encourage individual, group and milieu therapy 3.? Continue q-15 minute check for safety 4.? Recommend sober living treatment at the highest level of care to which the patient is willing to commit.? Involuntary Hold Information 96 Hour Hold: 96 Hour Involuntary Admission: Yes 96 Hour Hold Ending Date: 12/29/22 96 Hour Hold Ending Time: 23:10 Attestations NPU Medical Necessity Statement*: Inpatient hospitalization is medically necessary and the clinically appropriate intervention at this time. We will monitor me dications and make changes as indicated. Likely length of stay is 3-5 days. Coding Level of Care Code Acute Repair Clerk for [facility] Fwd Diagnoses Suicidal ideation R45.851 Cannabis abuse F12.10 Alcohol abuse F10.10 Bipolar disorder F31.9
[2021-12-24 20:01] VITALS: BP 118/68; PULSE 68; RESP 18; O2SAT 96
[2021-12-25 06:00] VITALS: BP 109/69; PULSE 64; RESP 18; O2SAT 98
[2021-12-25] MEDS: fluoxetine 20 mg Capsule PO (09:01)
--- NOTE | 2021-12-25 12:01 | W.PM.NPUPNS ---
Subjective NPU Subjective: Patient presents today reporting that she is understanding why she is here and is desirous of being connected with services.? She continues to minimize her issues with methamphetamine and alcohol use leading to mood instability and eventual hospitalization here. She reports no side effects from her medication. She reports continued depressed mood but reports that she is motivated to return home and work again so she does not end up homeless. She reports no side effects from prozac and latuda at this time. She reports that latuda 40mg had previously helped for depression but reports that she needed an increase prior to stopping outpatient services. Mental Status Exam MSE Comments: This is a well nourished, well developed white female in hospital scrubs with adequate grooming and eye contact. No abnormal movements. Cooperative with exam in mild distress. Speech was normal rate and volume. Mood described as depressed, affect is congruent as she appeared distressed/dysphoric. Thought process, organized. Thought content: patient did not express lethality toward herself or others, no delusions noted and she did not appear to be attending to internal stimuli. Attention and concentration are intact and memory appeared reliable but none were formally tested. She is alert and oriented three times. Insight and judgment are fair. Impulse control is fair. Vitals/I&O/Wt Last Vital Signs Temp 97.6 F 12/25/21 20:37 Pulse 96 12/25/21 20:37 Resp 18 12/25/21 20:37 BP 116/84 12/25/21 20:37 Pulse Ox 98 12/25/21 20:37 Weight last 48 hrs Weight 75.387 kg Data NPU : 12/22/21 22:25 12/22/21 22:25 A&P Assessment and plan (1) Methamphetamine abuse: Status: Acute (2) Alcohol abuse: Status: Acute (3) Bipolar disorder: Status: Acute Plan This is a 31 year old white female with a history of bipolar disorder and polysubstance abuse who remains on 96 hour hold and has been tolerating medications at this time. 1.? Increase Latuda to 60mg at night with food tommorow, and prozac at 20mg daily 2.? Encourage individual, group and milieu therapy 3.? Continue q-15 minute check for safety 4.? Recommend sober living treatment at the highest level of care to which the patient is willing to commit.? 5. Referral for drug treatment. Involuntary Hold Information 96 Hour Hold: 96 Hour Involuntary Admission: Yes 96 Hour Hold Ending Date: 12/29/22 96 Hour Hold Ending Time: 23:10 Attestations NPU Medical Necessity Statement*: Inpatient hospitalization is medically necessary and the clinically appropriate intervention at this time. We will monitor medications and make changes as indicated.? Likely length of stay is 2-3 days. Coding Level of Care Code Acute Special Agent [employer] for g Fwd History Problem Focused Exam Problem Focused Medical Decision Making Straight Forward Diagnoses Methamphetamine abuse F15.10 Alcohol abuse F10.10 Bipolar disorder F31.9
[2021-12-25 14:00] VITALS: BP 103/67; PULSE 67; RESP 16; O2SAT 98
[2021-12-25] MEDS: OLANZapine 5 mg ODT PO (15:53)
[2021-12-25] MEDS: lurasidone 80 mg Tablet 40 MG PO (16:36)
[2021-12-25 20:37] VITALS: BP 116/84; PULSE 96; RESP 18; TEMP 36.4; O2SAT 98
[2021-12-26 06:00] VITALS: BP 99/64; PULSE 64; RESP 16; TEMP 36.7; O2SAT 97; BMI 26.0
[2021-12-26] MEDS: fluoxetine 20 mg Capsule PO (07:50)
[2021-12-26 14:00] VITALS: BP 104/76; PULSE 93; RESP 16; TEMP 36.5; O2SAT 98
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
--- NOTE | 2021-12-26 15:16 | W.PM.NPUDCS ---
Diagnoses at Discharge Discharge Diagnosis (1) Methamphetamine abuse: Status: Acute (2) Alcohol abuse: Status: Acute (3) Bipolar disorder: Status: Acute Reason for Visit Reason for Visit: SI Involuntary Hold Information 96 Hour Hold: 96 Hour Involuntary Admission: Yes 96 Hour Hold Ending Date: 12/29/22 96 Hour Hold Ending Time: 23:10 Discharge Data Studies Completed and Pending: Laboratory Results WBC 6.1 10^3/uL (4.0- 10.0) 12/22/21 22: RBC 4.21 10^6/uL (4.1 -5.3) 12/22/21 22: Hgb 13.2 g/dL (11.5-1 5.3) 12/22/21 22: Hct 39.0 % (37.0-47.0 ) 12/22/21 22: MCV 92.6 fl (81-99) 12/22/21 22: MCH 31.4 pg (28.0-34. 0) 12/22/21: MCHC 33.8 g/dL (30.0-3 6.0) 12/22/21 22: RDW 13.1 % (12.1-15.1 ) 12/22/21: Plt Count 261 10^3/cmm (130 -400) 12/22/21 22: MPV 11.1 fL (7.4-10.4 ) H 12/22/21 22: Neut % (Auto) 49.0 % 12/22/21 22: Lymph % (Auto) 38.5 % 12/22/21: [place] % (Auto) 7.2 % 12/22/21: Eos % (Auto) 4.4 % 12/22/21: Baso % (Auto) 0.7 % 12/22/21: Neut # (Auto) 3.01 10^3/uL (1.8 -7.7) 12/22/21: Lymph # (Auto) 2.4 10^3/uL (0.8- 4.8) 12/22/21 22: [place] # (Auto) 0.4 10^3/uL (0.2- 0.9) 12/22/21 22: Eos # (Auto) 0.3 10^3/uL (0.0- 0.8) 12/22/21 22:25 Baso # (Auto) 0.0 10^3/uL (0.0- 0.1) 12/22/21 22:25 Nucleated RBC % (a uto) 0 % 12/22/21 22:25 Nucleated RBCs # 0.0 /100WBC 12/22/21 22:25 Sodium 138 mmol/L (136-1 45) 12/22/21 22:25 Potassium 3.9 mmol/L (3.5-5 .1) 12/22/21 22:25 Chloride 106 mmol/L (98-10 7) 12/22/21 22:25 Carbon Dioxide 21 mmol/L (22-29) L 12/22/21 22:25 Anion Gap 14.9 (5-19) 12/22/21 22:25 BUN 7 mg/dL (6-20) 12/22/21 22:25 Creatinine 0.5 mg/dL (0.5-0. 9) 12/22/21 22:25 GFR Calculation 143.0 mL/min (90- 130) H 12/22/21 22:25 Glucose 89 mg/dL (65-115) 12/22/21 22:25 Calculated Osmolal ity 283 mOsm/kg (285- 295) L 12/22/21 22:25 Calcium 8.4 mg/dL (8.5-10 .5) L 12/22/21 22:25 Total Bilirubin 0.2 mg/dL (0.15-1 .2) 12/22/21 22:25 AST 14 U/L (0-32) 12/22/21 22:25 ALT 13 U/L (0-33) 12/22/21 22:25 Alkaline Phosphata se 101 IU/L (35-105) 12/22/21 22:25 Total Protein 7.1 g/dL (6.6-8.7 ) 12/22/21 22:25 Albumin 4.2 g/dL (3.5-5.2 ) 12/22/21 22:25 Globulin 2.9 g/dL (1.3-4.6 ) 12/22/21 22:25 HCG, Qual Negative (Negati ve) 12/23/21 07:27 Salicylates < 0.3 mg/dL (3-10 ) L 12/22/21 22:25 Urine Opiates Scre en Negative ng/mL (N egative) 12/22/21 07:27 Acetaminophen < 5.0 ug/mL (10-3 0) L 12/22/21 22:25 Ur Barbiturates Sc reen Negative ng/mL (N egative) 12/22/21 07:27 Ur Phencyclidine S crn Negative ng/mL (N egative) 12/22/21 07:27 Ur Amphetamines Sc reen Positive ng/mL (N egative) H 12/22/21 07:27 U Benzodiazepines Scrn Negative ng/mL (N egative) 12/22/21 07:27 Urine Cocaine Scre en Negative ng/mL (N egative) 12/22/21 07:27 U Marijuana (THC) Screen Positive ng/mL (N egative) H 12/22/21 07:27 Ethyl Alcohol 64 mg/dL (0-10) H 12/22/21 22:25 Vitals: Last Vital Signs Temp 97.7 F 12/26/21 14:00 Pulse 93 12/26/21 14:00 Resp 16 12/26/21 14:00 BP 104/76 12/26/21 14:00 Pulse Ox 98 12/26/21 14:00 Discharge Plan Discharge Patient Disposition: Home Condition: Stable Prescriptions: No Action No Known Home Medications 0RF Referrals: [facility] [Other] [facility] [place]Outside] Patient Instructions: Opioid Safety Coding Level of Care Code Acute [facility] note Diagnoses Methamphetamine abuse F15.10 Alcohol abuse F10.10 Bipolar disorder F31.9
[2021-12-26 15:32] VITALS: BP 104/76; PULSE 93; RESP 16; TEMP 36.5; O2SAT 98
--- NOTE | 2021-12-27 09:54 | PC.NURSE ---
PT CALLED STATES MEDICATION WERE NOT SENT [facility] YESTERDAY. NOTIFIED DR. TRINITY DR. INFORMED THIS RN TO CALL [facility] INTO [facility] PT REQUESTED DURING PHONE CALL TODAY. THIS RN CALLED IN PROZAC 20 MG DAILY AND LATUDA 60 MG AT .
== END 2021-12-26 16:22 | disposition home or self-care (01) | DRG 885 ==
LOC: ER 22:33 → NP 22:55
PROVIDERS: Admitting Provider Psychiatry & Neurology Psychiatry; Emergency Provider Emergency Medicine; Visit Provider Psychiatry & Neurology Psychiatry
DX: F31.9 Bipolar disorder, unspecified (principal); F12.10 Cannabis abuse, uncomplicated; F10.10 Alcohol abuse, uncomplicated; F15.90 Other stimulant use, unspecified, uncomplicated; F17.210 Nicotine dependence, cigarettes, uncomplicated
CPT/HCPCS: 80053; 80306; 80307; 81025; 85025; 97150; 97165; 99285

== ENCOUNTER 2022-06-28 16:38 | Emergency (ER) | payer MEDICAID, SELFPAY ==
[2022-06-28 16:53] VITALS: BP 129/93; PULSE 110; RESP 18; TEMP 37.2; O2SAT 96
--- NOTE | 2022-06-28 17:42 | ED_ITS ---
HPI - Skin/Abscess/Foreign Bdy General: Chief complaint: Skin/Abscess/Foreign Body Stated complaint: Possible allergic reaction, rash arms and side Time Seen by Provider: 06/28/22 17:06 History of Present Illness: Patient is in today for a rash that she has had for a couple of days. She is concerned that this could be related to being inconsistent with taking her Lamictal. She reports that the rash started approximately a day after she stayed at a friend's house. She reports that it is on her right side and right forearm and hand as well as on her abdomen. She does not have any other symptoms of swelling of the mouth, lips, tongue, throat. No difficulty breathing. She reports that the rash is itching. She is allergic to vancomycin and red meat but denies any other known allergies. She denies any possibility of and she is not breast-feeding. Associated symptoms: Deny chills, fever(s), nausea or vomiting Review of Systems Const: Denies: fever(s), chills or body aches Card: Denies: chest pain or palpitations Resp: Denies: dyspnea, productive cough, non-productive cough or wheezing GI: Denies: abdominal pain, nausea or vomiting : Denies: flank pain, difficulty voiding or dysuria Skin/Breast: Reports: rash and pruritus PFSH ED PFSH: Medical History Alcohol abuse Bipolar disorder Cannabis abuse History of drug abuse History of gestational diabetes Gestational diabetes in third . Major depressive disorder Post- depression Psychiatric care Tobacco use Urachal remnant Surgical History H/O LEEP (~2013) states she had moderate dysplasia S/P laparoscopic cholecystectomy (07/28/20) Performed by Dr. Roque at [facility] in [place], [place] S/P tubal ligation (07/28/20) Laparoscopic bilateral tubal fulguration with complete salpingectomy, lysis omental adhesions. Diagnosis: Symptomatic cholelithiasis, undesired fertility. Performed by Dr. Ramos at [facility] in [place], [place]. Family History Grandmother Uterine cancer, Onset Age: 38 MGM Unknown No pertinent family history hypertension, high cholesterol, diabetes, thyroid or stroke Denies family history of Breast cancer Social History Smoking and tobacco status: current every day smoker cigarettes Packs smoked per day: 0.25 [ Other cigarette details: was smoking up to 1/2-1ppd ] and e- cigarettes E-Cigarette Details: vaporizer device E-cig/vape details: every other day Alcohol intake: current Alcohol intake frequency: holidays/special occasions only Other details last substance use: Uses marijuana to treat her stress Marital status: Single Number of children: 2 Current occupational status: employed Female Reproductive History: Date of last menstrual period: 12/22/21 Physical Exam Const: COMMON NORMALS: no acute distress, patient oriented x3 and alert HENMT: MOUTH: Normal oral and palatal mucosa present, lip normal and tongue normal THROAT: posterior oropharynx normal Resp: COMMON NORMALS: normal respiratory effort and No use of accessory muscles Neuro: COMMON NORMALS: patient oriented x3 SENSORIUM/ORIENTATION: Yes alert Skin: NARRATIVE SKIN EXAM: Patient has pinpoint erythematous papular lesions on the right forearm and right side that appear to be tracking in a linear pattern consistent with scabies. A couple lesions in between her fingers and on her lower abdomen in the crease of a fold. Course Vital Signs: Vital signs: Vital Signs Temperature 98.9 F 06/28/22 16:53 Pulse Rate 110 H 06/28/22 16:53 Respiratory Rate 18 06/28/22 16:53 Blood Pressure 129/93 06/28/22 16:53 Pulse Oximetry 96 06/28/22 16:53 MDM - Skin/Abscess/Foreign Bdy Medicial Decision Making Differentials include allergic reaction, contact dermatitis, scabies I discussed with client that this appears to be a scabies type rash. We discussed typical treatment for this as well as home care to prevent reinfestation. Permethrin cream is ordered. Advised patient of typical course of illness. Advised patient of decontamination procedures to prevent reinfestation. Patient verbalizes understanding of instruction. Follow-up with primary care as needed. Return to the ER for new or worsening symptoms. Discharge Plan Discharge Patient Disposition: Home Clinical Impression: Scabies Condition: Stable Prescriptions: New permethrin 5 % cream 1 applic topical Q14D Qty: 60 0RF Rx Instructions: apply second treatment 14 days after first treatment if new areas of rash developing No Action Latuda 60 mg tablet 60 mg PO QPM Qty: 30 0RF Rx Instructions: must administer with food (at least 350 calories) fluoxetine 20 mg Capsule 20 mg PO DAILY Qty: 30 1RF Discharge Orders: Discharge ED (Routine); Ordered 06/28/22 Ordered By: Krystal Herrera Discharge Diet: Usual diet Discharge Activity: Resume usual activity Patient Instructions: Scabies - Adult Coding Level of Care Code ED Telephonic Case Manager for Ernestine Mittal
== END 2022-06-28 17:47 | disposition home or self-care (01) ==
PROVIDERS: Emergency Provider Nurse Practitioner Family
DX: B86 Scabies (principal); F17.210 Nicotine dependence, cigarettes, uncomplicated
CPT/HCPCS: 99283; L4361

== ENCOUNTER 2023-01-18 20:26 | Emergency (ER) | payer MEDICAID, SELFPAY ==
[2023-01-18 20:32] VITALS: BP 130/84; PULSE 109; RESP 16; TEMP 37.1; O2SAT 100; BMI 26.6
--- NOTE | 2023-01-18 21:16 | W.ED.SKABFB ---
HPI - Skin/Abscess/Foreign Bdy General: Chief complaint: Skin/Abscess/Foreign Body Stated complaint: bite to left arm, neck pain Time Seen by Provider: 01/18/23 20:43 History of Present Illness: 33-year-old female comes in today with an area of redness and tenderness to the left inner arm. Patient reports noticing it approximately 3 days ago. Area is tender to touch with a palpable ropey vein in the area. Patient has a history of IV drug use but reports no recent use. Patient reports no fever or chills. Patient takes fluoxetine and Latuda routinely for medications. Patient denies any other medications or drug or alcohol use. Associated symptoms: Deny fever(s) Review of Systems Const: Denies: fever(s) Card: Denies: chest pain Resp: Denies: dyspnea Musc: Reports: extremity pain and extremity swelling Skin/Breast: Reports: erythema PFS ED PFSH: Medical History Alcohol abuse Bipolar disorder Cannabis abuse History of drug abuse History of gestational diabetes Gestational diabetes in third . Major depressive disorder Post- depression Psychiatric care Tobacco use Urachal remnant Surgical History H/O LEEP (~2013) states she had moderate dysplasia S/P laparoscopic cholecystectomy (07/28/20) Performed by Dr. Roque at [facility] in [place], [place] S/P tubal ligation (07/28/20) Laparoscopic bilateral tubal fulguration with complete salpingectomy, lysis omental adhesions. Diagnosis: Symptomatic cholelithiasis, undesired fertility. Performed by Dr. Ramos at [facility] in [place], [place]. Family History Grandmother Uterine cancer, Onset Age: 38 MGM Unknown No pertinent family history hypertension, high cholesterol, diabetes, thyroid or stroke Denies family history of Breast cancer Social History Smoking and tobacco status: current every day smoker cigarettes Packs smoked per day: 0.25 [ Other cigarette details: was smoking up to 1/2-1ppd ] and e-cigarettes E-Cigarette Details: vaporizer device E-cig/vape details: every other day Alcohol intake: current Alcohol intake frequency: holidays/special occasions only Substance/Drug Use: current Substance/Drug use frequency: daily Other substance/drug use details: 09/2019: 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 Other details last substance use: Uses marijuana to treat her stress Marital status: Single Number of children: 2 Current occupational status: employed Female Reproductive History: Date of last menstrual period: 01/10/23 Physical Exam Const: COMMON NORMALS: alert HENMT: COMMON NORMALS: normocephalic HEAD & SCALP: normocephalic Neck/C-Spine: GENERAL: Yes normal visual inspection and No Meningeal signs present Resp: COMMON NORMALS: normal respiratory effort Cardio: COMMON NORMALS: regular rate RATE: regular rate Back/Pelvis: COMMON NORMALS: thoracic and lumbar spine normal to inspection Extremity: LEFT UPPER EXTREMITY: Yes lower arm (Area of redness with palpable ropey vein) Neuro: SENSORIUM/ORIENTATION: Yes alert Skin: COMMON NORMALS: turgor normal GENERAL SKIN EXAM: turgor normal Course Vital Signs: Vital signs: Vital Signs Temperature 98.8 F 01/18/23 20:32 Pulse Rate 109 H 01/18/23 20:32 Respiratory Rate 16 01/18/23 20:32 Blood Pressure 130/84 01/18/23 20:32 Pulse Oximetry 100 01/18/23 20:32 Oxygen Delivery Me thod Room Air 01/18/23 20:32 MDM - Skin/Abscess/Foreign Bdy Medicial Decision Making 33-year-old female comes in with an area of redness and tenderness to the left inner arm. On exam there is a 4 cm area of redness to the left inner arm with a centralized ropey vessel. Distal pulses and sensation are intact. Swelling is localized to the area of redness. Vital signs are normal. Differential diagnosis includes but not limited to thrombophlebitis, abscess, cellulitis. No sign of severe illness is noted. Patient appears nontoxic. We will treat for thrombophlebitis with recommendations for warm moist packs and naproxen. Patient will be covered with antibiotics due to a history of bacteremia 2 to 3 years ago. Patient will be covered with Augmentin and Bactrim. Patient reported understanding of care plan and need for follow up or return to the ER. Discharge Plan Discharge Patient Disposition: Home Clinical Impression: Thrombophlebitis arm Condition: Stable Prescriptions: New amoxicillin-pot clavulanate 875-125 mg tablet 1 tab PO BID Qty: 14 0RF sulfamethoxazole-trimethoprim 800-160 mg tablet 1 tab PO DAILY 7 Days Qty: 14 0RF naproxen 500 mg tablet 500 mg PO BID PRN (Reason: pain and inflammation) Qty: 20 0RF No Action Latuda 60 mg tablet 60 mg PO QPM Qty: 30 0RF Rx Instructions: must administer with food (at least 350 calories) fluoxetine 20 mg Capsule 20 mg PO DAILY Qty: 30 1RF permethrin 5 % cream 1 applic topical Q14D Qty: 60 0RF Rx Instructions: apply second treatment 14 days after first treatment if new areas of rash developing Discharge Orders: Discharge ED (Routine); Ordered 01/18/23 Ordered By: Bacilio Leggett Discharge Diet: Usual diet Discharge Activity: Increase activity as tolerated Patient Instructions: Cellulitis (ED) Activity Restrictions/Additional Instructions: Home and rest. Use warm moist packs to the arm 15-minute intervals 3-4 times a day for pain and discomfort. Use naproxen 500 mg 1 tablet twice a day for pain and inflammation. Take antibiotics as directed including amoxicillin with potassium clavulanate and sulfamethoxazole?trimethoprim, 1 tablet of each twice a day for 7 days. Follow-up with primary care in 3 to 5 days. Take medication with food on stomach or at least 1 glass of water. Return to ER for worsening symptoms such as high fever, inability to hold fluids down, or new concerns. Coding Level of Care Code ED Executive Vp for Ernestine Mittal
[2023-01-18] MEDS: naproxen 500 mg Tablet PO (21:25)
[2023-01-18] MEDS: sulfamethoxazole-trimeth DS 160-800 mg Tablet 1 TAB PO (21:26)
[2023-01-18] MEDS: amoxicillin-clav 875-125 mg Tablet 1 TAB PO (21:26)
[2023-01-18 21:48] VITALS: BP 116/85; PULSE 91; RESP 16; O2SAT 98
--- NOTE | 2023-01-19 08:48 | DCPLANNER ---
manager ship called patient due to no primary care physician - no answer at this time.
== END 2023-01-18 21:51 | disposition home or self-care (01) ==
PROVIDERS: Emergency Provider Nurse Practitioner Family
DX: F17.210 Nicotine dependence, cigarettes, uncomplicated (principal); I80.8 Phlebitis and thrombophlebitis of other sites
CPT/HCPCS: 99283

== ENCOUNTER 2023-09-18 16:38 | Emergency (ER) | payer SELFPAY ==
[2023-09-18 16:44] VITALS: BP 136/91; PULSE 85; RESP 16; TEMP 36.6; O2SAT 91
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
[2023-09-18] MEDS: HYDROcodone-acetaminophen 5-325 mg Tablet 1 TAB PO (16:56)
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
[2023-09-18 17:45] LABS: Basophils # 0.1 10^3/uL (0.0-0.1); Basophils % 0.6 %; Eosinophils # 0.2 10^3/uL (0.0-0.8); Eosinophils % 1.9 %; Hematocrit 46.9 % (36-47); Lymphocytes # 1.6 10^3/uL (0.8-4.8); Lymphocytes % 18.6 %; Mean Corpuscular Hemoglobin 32.2 pg (27-33); Mean Corpuscular Volume 97.3 fl (85-98); Mean Platelet Volume 10.9 fL (7.4-10.4); Monocytes # 0.4 10^3/uL (0.2-0.9); Monocytes % 5.1 %; Neutrophils # 6.14 10^3/uL (1.8-7.7); Neutrophils % 73.6 %; Nucleated Red Blood Cells % 0 %; Platelet Count 242 10^3/cmm (157-399); Red Blood Count 4.82 10^6/uL (3.85-5.65); Red Cell Distribution Width 12.5 % (12.1-15.1); White Blood Count 8.35 10^3/uL (3.29-11.43)
[2023-09-18 17:57] LABS: Alanine Aminotransferase 13 U/L (0-33); Albumin Level 4.5 g/dL (3.5-5.2); Alkaline Phosphatase 93 U/L (35-105); Anion Gap 14.9 (5-19); Aspartate Amino Transferase 19 U/L (0-32); Blood Urea Nitrogen 9 mg/dL (6-20); Calcium 9.5 mg/dL (8.5-10.5); Carbon Dioxide 27 mmol/L (22-29); Chloride 103 mmol/L (98-107); Creatinine Clr Calc Pharmacy 140.2807; Globulin 2.6 g/dL (1.3-4.6); Glomerular Filtration Rate 114.4 mL/min (90-130); Glucose 87 mg/dL (65-115); Osmolality Calculated 290 mOsm/kg (285-295); Potassium 3.9 mmol/L (3.5-5.1); Sodium 141 mmol/L (136-145); Total Bilirubin 0.5 mg/dL (0.15-1.2); Total Protein 7.1 g/dL (6.6-8.7)
[2023-09-18 17:59] LABS: HCG, Serum Qual Negative (Negative)
== END 2023-09-18 18:23 | disposition home or self-care (01) ==
PROVIDERS: Emergency Provider Family Medicine
DX: T74.11XA Adult physical abuse, confirmed, initial encounter (principal); Y07.031 Male partner, former, perpetrator of maltreatment and neglect; F17.210 Nicotine dependence, cigarettes, uncomplicated; F17.290 Nicotine dependence, other tobacco product, uncomplicated
CPT/HCPCS: 36415; 70450; 72125; 73590; 73630; 80053; 84703; 85025; 99284

== ENCOUNTER 2024-05-28 18:49 | Emergency (ER) | payer SELFPAY ==
[2024-05-28 18:50] VITALS: BP 134/100; PULSE 94; RESP 18; TEMP 36.6; O2SAT 97; BMI 25.8
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
[2024-05-28 19:05] VITALS: PULSE 92; RESP 20; O2SAT 95
[2024-05-28 19:57] VITALS: BP 134/100; PULSE 79; O2SAT 99
== END 2024-05-28 19:59 | disposition home or self-care (01) ==
PROVIDERS: Emergency Provider Emergency Medicine
DX: T78.40XA Allergy, unspecified, initial encounter (principal); X58.XXXA Exposure to other specified factors, initial encounter; F17.290 Nicotine dependence, other tobacco product, uncomplicated
CPT/HCPCS: 99283

== ENCOUNTER 2024-12-23 17:50 | Emergency (ER) | payer SELFPAY ==
[2024-12-23 17:53] VITALS: BP 141/76; PULSE 108; TEMP 36.8; O2SAT 100
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
[2024-12-23 19:03] VITALS: BP 127/97; PULSE 65; RESP 18; O2SAT 98
[2024-12-23 19:13] LABS: HCG, Serum Qual Negative (Negative)
[2024-12-23 19:20] LABS: Alanine Aminotransferase 19 U/L (0-33); Albumin Level 4.2 g/dL (3.5-5.2); Alkaline Phosphatase 94 U/L (35-105); Blood Urea Nitrogen 6 mg/dL (6-20); Calcium 8.7 mg/dL (8.5-10.5); Carbon Dioxide 18 mmol/L (22-29); Chloride 108 mmol/L (98-107); Creatinine Clr Calc Pharmacy 141.9563; Globulin 2.9 g/dL (1.3-4.6); Glomerular Filtration Rate 113.8 mL/min (90-130); Glucose 75 mg/dL (65-115); Osmolality Calculated 286 mOsm/kg (285-295); Sodium 140 mmol/L (136-145); Total Bilirubin 0.5 mg/dL (0.15-1.2); Total Protein 7.1 g/dL (6.6-8.7)
[2024-12-23 19:23] LABS: Anion Gap 17.7 (5-19); Aspartate Amino Transferase 29 U/L (0-32); Potassium 3.7 mmol/L (3.5-5.1)
[2024-12-23 19:50] VITALS: BP 141/80; PULSE 93; O2SAT 100
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
[2024-12-23 20:01] LABS: Basophils % 0.4 %; Eosinophils # 0.1 10^3/uL (0.0-0.8); Eosinophils % 1.5 %; Hematocrit 39.8 % (36-47); Lymphocytes # 1.9 10^3/uL (0.8-4.8); Lymphocytes % 24.9 %; Mean Corpuscular HGB Conc 32.7 g/dL (30-55); Mean Corpuscular Hemoglobin 30.7 pg (27-33); Mean Corpuscular Volume 93.9 fl (85-98); Mean Platelet Volume 11.5 fL (7.4-10.4); Monocytes # 0.4 10^3/uL (0.2-0.9); Monocytes % 5.6 %; Neutrophils # 5.06 10^3/uL (1.8-7.7); Neutrophils % 67.3 %; Nucleated Red Blood Cells % 0 %; Platelet Count 185 10^3/cmm (157-399); Red Blood Count 4.24 10^6/uL (3.85-5.65); Red Cell Distribution Width 13.2 % (12.1-15.1); White Blood Count 7.51 10^3/uL (3.29-11.43)
[2024-12-23] MEDS: lactated ringers 1,000 ML 999 ML IV (20:04)
[2024-12-23] MEDS: ketorolac 30 mg/mL INJ 10 MG IVP (20:51)
[2024-12-23] MEDS: orphenadrine 30 mg/mL Inj 2 mL IV (20:52)
[2024-12-23 20:54] VITALS: BP 134/98; PULSE 96; O2SAT 99
[2024-12-23 21:00] LABS: Bilirubin Urine 1+ (Negative); Blood Urine Negative (Negative); Glucose Urine UA Negative (Normal); Ketones Urine Trace (Negative); Leukocyte Esterase Urine 1+ (Negative); Nitrate Urine Positive (Negative); Protein Urine 1+ (Negative); Urine Appearance Clear (CLEAR); Urine Color Dark Yellow (Yellow); pH Urine 5.5 (5-7)
[2024-12-23 21:05] LABS: Add Urine Microscopic? YES; Bacteria Urine 4+ /hpf; RBC Urine 0-2 /hpf (0-2); WBC Urine 51-100 /hpf (0-5)
[2024-12-23 21:10] LABS: Add Urine Culture? Yes; Specific Gravity, Urine 1.033 (1.005-1.030)
[2024-12-23 21:22] VITALS: BP 134/98; PULSE 85; O2SAT 99
== END 2024-12-23 21:34 | disposition home or self-care (01) ==
PROVIDERS: Emergency Provider Physician Assistant
DX: S00.12XA Contusion of left eyelid and periocular area, initial encounter (principal); E87.20 Acidosis, unspecified; N39.0 Urinary tract infection, site not specified; Y04.2XXA Assault by strike against or bumped into by another person, initial encounter; F17.210 Nicotine dependence, cigarettes, uncomplicated
CPT/HCPCS: 36415; 70450; 71046; 72125; 72128; 72170; 73130; 73610; 80053; 81001; 84703; 85025; 87077; 87086; 87186; 96361; 96374; 96375; 99285; J1885; J2360; J7120